=== PATIENT | female | born 1955 | race Caucasian/White ===

== ENCOUNTER 2018-12-31 16:07 | Emergency (ER) | payer SELFPAY ==
[~2018-12-31] VITALS: Ht 160 cm; Wt 79.3 kg
--- NOTE | 2018-12-31 16:31 | ED Neurological Problem ---
General Chief Complaint: Neurological Problems Stated Complaint: VOMITING,CONFUSION Nursing Triage Note: Pt brought to ED by sister. Pt is confused and not oriented. Sister reports pt began having trouble seeing last night and became confused. Sister reports pt vomited in car on the way to ED. Pt is waddling when walking and sister reports this is not normal for pt. Pt unable to provide history. Nursing Sepsis Screen: No Definite Risk Source: patient Exam Limitations: no limitations History of Present Illness Date Seen by Provider: Dec 31, 2018 Time Seen by Provider: 16:28 Initial Comments Brought to ER by private vehicle from home accompanied by her sister. She lives in [facility] her sister lives in [facility]. She does not know her primary care provider, past medical history or medications. Sr. states that the patient called her yesterday and reported she wasn't feeling well, upon sisters arrival she seemed to be confused, this started last night. She's also had some vomiting and threw up once in the car on the way here. She is on a blood thinner possibly but sister isn't quite sure. She also reports vision troubles. Timing/Duration: 24 hours Severity: moderate Associated Symptoms: confusion, nausea/vomiting, vision changes Allergies and Home Medications Allergies Coded Allergies: No Known Drug Allergies (Unverified , 12/31/18) Patient Home Medication List Home Medication List Reviewed: Yes Review of Systems Review of Systems Constitutional: see HPI, other (difficult to obtain from sister and patient) Eyes: No Symptoms Reported Ears, Nose, Mouth, Throat: no symptoms reported Respiratory: no symptoms reported Cardiovascular: no symptoms reported Gastrointestinal: nausea, vomiting Genitourinary: no symptoms reported Musculoskeletal: no symptoms reported Skin: no symptoms reported Psychiatric/Neurological: See HPI, Cognitive Dysfunction; Denies Headache Past Vscxjal-Hcxhmt-Mcpmyk Hx Patient Social History Recent Foreign Travel: No Contact w/Someone Who Travel: No Recent Infectious Disease Expo: No Physical Exam Vital Signs Vital Signs - First Documented 12/31/18 16:13 Temp 36.3 Pulse 111 Resp 14 B/P (MAP) 99/66 (77) Pulse Ox 98 O2 Delivery Room Air Capillary Refill : Less Than 3 Seconds Height, Weight, BMI Height: '" Weight: lbs. oz. kg; 30.00 BMI Method: General Appearance: WD/WN, no apparent distress, other (patient is alert, disoriented to place time and situation. She is ambulatory with standby assistance from her sister with a shuffling gait which is abnormal for the patient. She states that she feels okay. However she doesn't know where she is, the month or the day.) HEENT: PERRL/EOMI, normal ENT inspection Neck: non-tender, full range of motion Respiratory: normal breath sounds, no respiratory distress, no accessory muscle use Cardiovascular: no murmur, tachycardia Gastrointestinal: normal bowel sounds, non tender, soft Neurologic/Psychiatric: alert Crainal Nerves: normal hearing, normal speech, PERRL, other (facial movements are symmetric) Coordination/Gait: abnormal gait, ABN nose to finger (R), ABN nose to finger (L) (general ataxia) Motor/Sensory: no motor deficit, other (no drift of either upper extremity, moves all extremities with equal strength) Skin: normal color, warm/dry Progress/Results/Core Measures Results/Orders Lab Results Laboratory Tests Test 12/31/18 16:15 12/31/18 16:24 12/31/18 16:42 Range/Units Urine Color DARK YELLOW Urine Clarity CLEAR Urine pH 6.0 5-9 Urine Specific [place] >=1.030 1.016-1.022 Urine Protein 3+ H NEGATIVE Urine Glucose (UA) NEGATIVE NEGATIVE Urine Ketones 1+ H NEGATIVE Urine Nitrite NEGATIVE NEGATIVE Urine Bilirubin 1+ H NEGATIVE Urine Urobilinogen 0.2 < = 1.0 MG/DL Urine Leukocyte Esterase NEGATIVE NEGATIVE Urine RBC (Auto) 2+ H NEGATIVE Urine RBC 10-25 H /HPF Urine WBC NONE /HPF Urine Squamous Epithelial Cells 2-5 /HPF Urine Crystals NONE /LPF Urine Bacteria TRACE /HPF Urine Casts NONE /LPF Urine Mucus MODERATE H /LPF Urine Culture Indicated NO Urine Opiates Screen NEGATIVE NEGATIVE Urine Oxycodone Screen NEGATIVE NEGATIVE Urine Methadone Screen NEGATIVE NEGATIVE Urine Propoxyphene Screen NEGATIVE NEGATIVE Urine Barbiturates Screen NEGATIVE NEGATIVE Ur Tricyclic Antidepressants Screen NEGATIVE NEGATIVE Urine Phencyclidine Screen NEGATIVE NEGATIVE Urine Amphetamines Screen NEGATIVE NEGATIVE Urine Methamphetamines Screen NEGATIVE NEGATIVE Urine Benzodiazepines Screen NEGATIVE NEGATIVE Urine Cocaine Screen NEGATIVE NEGATIVE Urine Cannabinoids Screen NEGATIVE NEGATIVE White Blood Count 13.9 H 4.3-11.0 10^3/uL Red Blood Count 5.84 4.35-5.85 10^6/uL Hemoglobin 15.8 11.5-16.0 G/DL Hematocrit 47 35-52 % Mean Corpuscular Volume 81 80-99 FL Mean Corpuscular Hemoglobin 27 25-34 PG Mean Corpuscular Hemoglobin Concent 33 32-36 G/DL Red Cell Distribution Width 15.8 H 10.0-14.5 % Platelet Count 288 130-400 10^3/uL Mean Platelet Volume 9.4 7.4-10.4 FL Neutrophils (%) (Auto) 79 H 42-75 % Lymphocytes (%) (Auto) 14 12-44 % Monocytes (%) (Auto) 6 0-12 % Eosinophils (%) (Auto) 0 0-10 % Basophils (%) (Auto) 0 0-10 % Neutrophils # (Auto) 10.9 H 1.8-7.8 X 10^3 Lymphocytes # (Auto) 2.0 1.0-4.0 X 10^3 Monocytes # (Auto) 0.9 0.0-1.0 X 10^3 Eosinophils # (Auto) 0.1 0.0-0.3 10^3/uL Basophils # (Auto) 0.0 0.0-0.1 10^3/uL Prothrombin Time 13.7 12.2-14.7 SEC INR Comment 1.0 0.8-1.4 Sodium Level 140 135-145 MMOL/L Potassium Level 4.1 3.6-5.0 MMOL/L Chloride Level 102 98-107 MMOL/L Carbon Dioxide Level 23 21-32 MMOL/L Anion Gap 15 H 5-14 MMOL/L Blood Urea Nitrogen 23 H 7-18 MG/DL Creatinine 1.34 H 0.60-1.30 MG/DL Estimat Glomerular Filtration Rate 40 BUN/Creatinine Ratio 17 Glucose Level 135 H 70-105 MG/DL Calcium Level 10.2 H 8.5-10.1 MG/DL Corrected Calcium 8.5-10.1 MG/DL Total Bilirubin 1.1 H 0.1-1.0 MG/DL Aspartate Amino Transf (AST/SGOT) 19 5-34 U/L Alanine Aminotransferase (ALT/SGPT) 20 0-55 U/L Alkaline Phosphatase 94 40-136 U/L Total Protein 8.5 H 6.4-8.2 GM/DL Albumin 4.8 H 3.2-4.5 GM/DL Thyroid Stimulating Hormone (TSH) 0.29 L 0.35-4.94 UIU/ML Serum Alcohol < 10 <10 MG/DL Glucometer 130 H 70-110 MG/DL My Orders Orders - GUY REDDY APRN Ct Head Wo-R/O Stroke (12/31/18 16:26) Cbc With Automated Diff (12/31/18 16:26) Comprehensive Metabolic Panel (12/31/18 16:26) Protime With Inr (12/31/18 16:26) Thyroid Stimulating Hormone (12/31/18 16:26) Ua Culture If Indicated (12/31/18 16:26) Drug Screen Stat (Urine) (12/31/18 16:26) Alcohol (12/31/18 16:26) Ns Iv 1000 Ml (Sodium Chloride 0.9%) (12/31/18 16:45) Ondansetron Injection (Zofran Injectio (12/31/18 16:45) Ekg Tracing (12/31/18 16:32) Accucheck Stat ONCE (12/31/18 16:35) Ns (Ivpb) (Sodium C... W/Diltiazem Iv Fo (12/31/18 17:30) Ns (Ivpb) (Sodium C... W/Nicardipine Iv (12/31/18 17:45) Labetalol Injection (Normodyne Injection (12/31/18 17:45) Labetalol Injection (Normodyne Injection (12/31/18 18:15) Medications Given in ED Current Medications Medications Dose Ordered Sig/Tamara Route Start Time Stop Time Status Last Admin Dose Admin Labetalol HCl 10 mg ONCE ONCE IV 12/31/18 17:45 12/31/18 17:46 DC 12/31/18 17:40 10 MG Labetalol HCl 10 mg ONCE ONCE IV 12/31/18 18:15 12/31/18 18:16 DC 12/31/18 18:11 10 MG Ondansetron HCl 4 mg ONCE ONCE IVP 12/31/18 16:45 12/31/18 16:46 DC 12/31/18 16:37 4 MG Vital Signs/I&O 12/31/18 16:13 Temp 36.3 Pulse 111 Resp 14 B/P (MAP) 99/66 (77) Pulse Ox 98 O2 Delivery Room Air Blood Pressure Mean: 77 POS Diagnostic Imaging Diagonstic Imaging: CT Comments NAME: SHAUN BALTAZAR [facility] REC#: [id number] PT STATUS: REG ER : 1955 PHYSICIAN: GUY REDDY APRN ADMIT DATE: 12/31/18/ER Draft POSDate of Exam:12/31/18 CT HEAD WO-R/O STROKE PROCEDURE: CT head wo r/o stroke. TECHNIQUE: Multiple contiguous axial images were obtained through the brain without the use of intravenous contrast. Auto Exposure Controls were utilized during the CT exam to meet ALARA standards for radiation dose reduction. INDICATION: Confusion x2 days. FINDINGS: There is a 3.5 x 3.0 cm parenchymal hemorrhage in the left posterior parietal lobe near the watershed vascular territory between the middle and posterior cerebral arteries. There is old ischemic change in the opposing right posterior parietal lobe. There are areas of decreased density in the periventricular white matter consistent with chronic small vessel ischemic change. The hemorrhage is causing some mass effect on the occipital horn of the left lateral ventricle. IMPRESSION: 3.5 x 3.0 cm parenchymal hemorrhage left posterior parietal lobe. Results were called to Guy in the Emergency Room at 1710 hours. Dictated on workstation # [id number] Dict: 12/31/18 1705 Trans: 12/31/18 1714 [facility] [id number] Interpreted by: FARHEEN HOSKINS MD Electronically signed by: Departure Communication (Admissions) Her pharmacy is [facility] in [facility]. Primary care provider is Dr. Josh Bell. Pharmacy states that she is on carvedilol 3.125, lisinopril 40 and diltiazem 120. She has not filled these medications since October however. These are her only 3 medications according to pharmacy. 1749-Dr. Carreon transfer physician and Dr. Bui neurosurgeon at [facility] on the [address] has accepted the patient in transfer. They would like systolic pressure less than 140. Currently she is at 217/142. Has been as high as 240 systolic. Nicardipine drip ordered, labetalol 10 mg IV given. I offered transfer to [facility] in [place], however they are from the [facility] and she has been a patient at [facility] on the [address] before, sister would like the patient to go back that direction and that is certainly appropriate. 1849-O care is here to transport patient, she remains alert but confused. Blood pressure down to 163/96, she's received 20 mg of labetalol, on a Cardene drip at 15 mg an hour. Impression Primary Impression: Intraparenchymal hemorrhage of brain Disposition: 02 XFER SHT-TRM HOSP Condition: Critical Transfer Transfer Reason: Exceeds level of care Time Spoke to Accepting Phy: 17:51 Transfer Time: 17:51 Method of Transfer: GUY Scott APRN Dec 31, 2018 16:31 POS
[2018-12-31 16:34] LABS: CLARITY,URINE CLEAR; COLOR,URINE DARK YELLOW; GLUCOSE, URINE (UA) NEGATIVE (NEGATIVE); KETONES,URINE 1+ (NEGATIVE); LEUKOCYTE ESTERASE ,URINE NEGATIVE (NEGATIVE); NITRITE,URINE NEGATIVE (NEGATIVE); PROTEIN,URINE 3+ (NEGATIVE)
[2018-12-31 16:35] LABS: BASOPHILS % (AUTO) 0 % (0-10); EOSINOPHILS # (AUTO) 0.1 10^3/uL (0.0-0.3); EOSINOPHILS % (AUTO) 0 % (0-10); HEMATOCRIT 47 % (35-52); HEMOGLOBIN 15.8 G/DL (11.5-16.0); LYMPHOCYTES % (AUTO) 14 % (12-44); MEAN CORPUSCULAR HEMOGLOBIN 27 PG (25-34); MEAN CORPUSCULAR HGB CONC 33 G/DL (32-36); MEAN CORPUSCULAR VOLUME 81 FL (80-99); MEAN PLATELET VOLUME 9.4 FL (7.4-10.4); MONOCYTES # (AUTO) 0.9 X 10^3 (0.0-1.0); MONOCYTES % (AUTO) 6 % (0-12); NEUTROPHILS # (AUTO) 10.9 X 10^3 (1.8-7.8); NEUTROPHILS % (AUTO) 79 % (42-75); PLATELET COUNT 288 10^3/uL (130-400); RED CELL DISTRIBUTION WIDTH 15.8 % (10.0-14.5); WHITE BLOOD COUNT 13.9 10^3/uL (4.3-11.0)
[2018-12-31 16:45] LABS: PROTHROMBIN TIME PATIENT 13.7 SEC (12.2-14.7)
[2018-12-31] MEDS ORDERED: ONDANSETRON 4 MG/2 ML (SDV) Z0FRAN IVP ONE (16:45)
[2018-12-31] MEDS ORDERED: NS IV 1000 ML 1,000 ML IV SCH (16:45)
[2018-12-31 16:52] LABS: BILIRUBIN,URINE 1+ (NEGATIVE)
[2018-12-31 16:53] LABS: BACTERIA,URINE TRACE /HPF
[2018-12-31 16:54] LABS: AMPHETAMINE SCREEN, URINE NEGATIVE (NEGATIVE); BARBITURATE SCREEN URINE NEGATIVE (NEGATIVE); BENZODIAZEPINES SCREEN URINE NEGATIVE (NEGATIVE); CANNABINOID SCREEN, URINE NEGATIVE (NEGATIVE); COCAINE SCREEN URINE NEGATIVE (NEGATIVE); METHADONE STAT NEGATIVE (NEGATIVE); METHAMPHETAMINE SCREEN URINE S NEGATIVE (NEGATIVE); OPIATE SCREEN URINE NEGATIVE (NEGATIVE); OXYCODONE STAT NEGATIVE (NEGATIVE); PROPOXYPHENE STAT NEGATIVE (NEGATIVE); TRICYCLIC ANTIDEPRESSANTS SCRE NEGATIVE (NEGATIVE)
[2018-12-31 17:00] LABS: ALANINE AMINOTRANSFERASE 20 U/L (0-55); ALBUMIN 4.8 GM/DL (3.2-4.5); ALKALINE PHOSPHATASE 94 U/L (40-136); BILIRUBIN,TOTAL 1.1 MG/DL (0.1-1.0); BUN/CREATININE RATIO 17; CALCIUM 10.2 MG/DL (8.5-10.1); CARBON DIOXIDE 23 MMOL/L (21-32); CHLORIDE 102 MMOL/L (98-107); CREATININE SERUM 1.34 MG/DL (0.60-1.30); GFR ESTIMATED 40; GLUCOSE 135 MG/DL (70-105); POTASSIUM 4.1 MMOL/L (3.6-5.0); SODIUM 140 MMOL/L (135-145); TOTAL PROTEIN 8.5 GM/DL (6.4-8.2)
--- NOTE | 2018-12-31 17:14 | Diagnostic Imaging Report ---
PROCEDURE: CT head wo r/o stroke. TECHNIQUE: Multiple contiguous axial images were obtained through the brain without the use of intravenous contrast. Auto Exposure Controls were utilized during the CT exam to meet ALARA standards for radiation dose reduction. INDICATION: Confusion x2 days. FINDINGS: There is a 3.5 x 3.0 cm parenchymal hemorrhage in the left posterior parietal lobe near the watershed vascular territory between the middle and posterior cerebral arteries. There is old ischemic change in the opposing right posterior parietal lobe. There are areas of decreased density in the periventricular white matter consistent with chronic small vessel ischemic change. The hemorrhage is causing some mass effect on the occipital horn of the left lateral ventricle. IMPRESSION: 3.5 x 3.0 cm parenchymal hemorrhage left posterior parietal lobe. Results were called to Matty in the Emergency Room at 1710 hours. Dictated by: Dictated on workstation # [id number]
[2018-12-31] MEDS ORDERED: DILTIAZEM IV FOR DRIP 125 MG in NS (IVPB) 100 ML IV SCH (17:30)
[2018-12-31] MEDS ORDERED: LABETALOL HCL 20 MG/4 ML VIAL IV ONE ×2 (17:45→18:15)
[2018-12-31] MEDS ORDERED: niCARdipine IV 50 MG in NS (IVPB) 230 ML IV SCH (17:45)
--- NOTE | 2018-12-31 18:06 | NUR ---
Attempted to have pt sign consent form. Pt cannot remember why pt is being transferred. Matty Olvera explained reason for transfer to pt again. Consent form signed by this nurse and Matty Olvera.
[2018-12-31 18:50] VITALS: BP 163/96
== END 2018-12-31 19:01 | disposition short-term general hospital (02) ==
LOC: ER 16:10
DX: I61.8 Other nontraumatic intracerebral hemorrhage (principal)
CPT/HCPCS: 36415; 51702; 70450; 80053; 80306; 80320; 81000; 82962; 84443; 85025; 85610; 93005

== ENCOUNTER 2019-06-02 16:02 | Inpatient (IN) | payer MEDICAID ==
[~2019-06-02] VITALS: Ht 162.5 cm; Wt 84.1 kg
--- OUTSIDE RECORDS SUMMARY | 2019-06-02 16:08 | XMS REPORT | Continuity of Care Document ---
Author Organization Unknown Address Unknown Phone Unavailable Allergies Active Description Code Type Severity Reaction Onset Reported/Identified Relationship to Patient Clinical Status Yes No Known Drug Allergies [id number] Drug Allergy Unknown N/A 12/31/2018 Medications There is no data. Problems Date Dx Coded Attending Type Code Diagnosis Diagnosed By 12/31/2018 GUY REDDY APRN Ot I61 .8 OTHER NONTRAUMATIC INTRACEREBRAL HEMORRH 12/31/2018 GUY REDDY APRN Ot R11.10 VOMITING, UNSPECIFIED 01/02/2019 GUY REDDY APRN Ot I61 .8 OTHER NONTRAUMATIC INTRACEREBRAL HEMORRH 01/02/2019 GUY REDDY APRN Ot R11.10 VOMITING, UNSPECIFIED Procedures There is no data. Results Test Result Range Complete urinalysis with reflex to cultu re - 12/31/18 16:15 Urine color determination DARK YELLOW N RG Urine clarity determination CLEAR NR G Urine pH measurement by test strip 6.0 5-9 Specific gravity of urine by test strip >= 1.016-1.022 Urine protein assay by test strip, semi-quantitative 3+ NEGATIVE Urine glucose detection by automated test strip NE GATIVE NEGATIVE Erythrocytes detection in urine sediment by light micr oscopy 2+ NEGATIVE Urine ketones detection by automated test strip 1+ NEGATIVE Urine nitrite detection by test strip NEGATIVE NEGATIVE Urine total bilirubin detection by test strip 1+ NEGATIVE Urine urobilinogen measurement by automated test strip (mass/volume) 0.2 mg/dL < = 1.0 Urine leukocyte esterase detection by dipstick NEG ATIVE NEGATIVE Automated urine sediment erythrocyte cou nt by microscopy (number/high power field) [HPF] NRG Automated urine sediment leukocyte count by microscopy (number/high power field) NONE NRG Bacteria detection in urine sediment by light microsco py TRACE NRG Squamous epithelial cells detection in u rine sediment by light microscopy 2-5 NRG Crystals detection in urine sediment by light microsco py NONE NRG Casts detection in urine sediment by light microscopy NONE NRG Mucus detection in urine sediment by light microscopy MODERATE NRG Complete urinalysis with reflex to culture NO NRG Urine drug screening test - 12/31/18 16: 15 Urine phencyclidine detection by screening method NEGATIVE NEGATIVE Urine benzodiazepines detection by screening method NEGATIVE NEGATIVE Urine cocaine detection NEGATIVE NEGATI VE Urine amphetamines detection by screening method N EGATIVE NEGATIVE Urine methamphetamine detection by screening method NEGATIVE NEGATIVE Urine cannabinoids detection by screening method N EGATIVE NEGATIVE Urine opiates detection by screening method NEGATI VE NEGATIVE Urine barbiturates detection NEGATIVE N EGATIVE Screening urine tricyclic antidepressants detection NEGATIVE NEGATIVE Urine methadone detection by screening method NEGA TIVE NEGATIVE Urine oxycodone detection NEGATIVE NEGA TIVE Urine propoxyphene detection NEGATIVE N EGATIVE Complete blood count (CBC) with automate d white blood cell (WBC) differential - 12/31/18 16:24 Blood leukocytes automated count (number/volume) 13.9 10*3/uL 4.3-11.0 Blood erythrocytes automated count (number/volume) 5.84 10*6/uL 4.35-5.85 Venous blood hemoglobin measurement (mass/volume) 15.8 g/dL 11.5-16.0 Blood hematocrit (volume fraction) 47 % 35-52 Automated erythrocyte mean corpuscular volume 81 [ foz_us] 80-99 Automated erythrocyte mean corpuscular h emoglobin (mass per erythrocyte) 27 pg 25-34 Automated erythrocyte mean corpuscular h emoglobin concentration measurement (mass/volume) 33 g/dL 32-36 Automated erythrocyte distribution width ratio 15. 8 % 10.0- 14.5 Automated blood platelet count (count/volume) 288 10*3/uL 130-400 Automated blood platelet mean volume measurement 9.4 [foz_us] 7.4-10.4 Automated blood neutrophils/100 leukocytes 79 % 42-75 Automated blood lymphocytes/100 leukocytes 14 % 12-44 Blood monocytes/100 leukocytes 6 % 0-12 Automated blood eosinophils/100 leukocytes 0 % 0-10 Automated blood basophils/100 leukocytes 0 % 0-10 Blood neutrophils automated count (number/volume) 10.9 10*3 1.8-7.8 Blood lymphocytes automated count (number/volume) 2.0 10*3 1.0-4.0 Blood monocytes automated count (number/volume) 0. 9 10*3 0.0-1.0 Automated eosinophil count 0.1 10*3/uL 0 .0-0.3 Automated blood basophil count (count/volume) 0.0 10*3/uL 0.0-0.1 PT panel in platelet poor plasma by coag ulation assay - 12/31/18 16:24 Prothrombin time (PT) in platelet poor plasma by coagu lation assay 13.7 s 12.2-14.7 INR in platelet poor plasma or blood by coagulation as say 1.0 0.8-1.4 Comprehensive metabolic panel - 12/31/18 16:24 Serum or plasma sodium measurement (moles/volume) 140 mmol/L 135-145 Serum or plasma potassium measurement (moles/volume) 4.1 mmol/L 3.6-5.0 Serum or plasma chloride measurement (moles/volume) 102 mmol/L 98-107 Carbon dioxide 23 mmol/L 21-32 Serum or plasma anion gap determination (moles/volume) 15 mmol/L 5-14 Serum or plasma urea nitrogen measurement (mass/volume ) 23 mg/dL 7-18 Serum or plasma creatinine measurement (mass/volume) 1.34 mg/dL 0.60-1.30 Serum or plasma urea nitrogen/creatinine mass ratio 17 NRG Serum or plasma creatinine measurement w ith calculation of estimated glomerular filtration rate 40 NRG Serum or plasma glucose measurement (mass/volume) 135 mg/dL 70-105 Serum or plasma calcium measurement (mass/volume) 10.2 mg/dL 8.5-10.1 Serum or plasma total bilirubin measurement (mass/volu me) 1.1 mg/dL 0.1-1.0 Serum or plasma alkaline phosphatase heide surement (enzymatic activity/volume) 94 U/L 40-136 Serum or plasma aspartate aminotransfera se measurement (enzymatic activity/volume) 19 U/L 5-34 Serum or plasma alanine aminotransferase measurement (enzymatic activity/volume) 20 U/L 0-55 Serum or plasma protein measurement (mass/volume) 8.5 g/dL 6.4-8.2 Serum or plasma albumin measurement (mass/volume) 4.8 g/dL 3.2-4.5 THYROID STIMULATING HORMONE - 12/31/18 1 6:24 THYROID STIMULATING HORMONE 0.29 u[iU]/mL 0.35-4.94 Serum or plasma ethanol measurement (mas s/volume) - 12/31/18 16:24 Serum or plasma ethanol measurement (mass/volume) < mg/dL <10 Capillary blood glucose measurement by g lucometer (mass/volume) - 12/31/18 16:42 Capillary blood glucose measurement by glucometer (mas s/volume) 130 mg/dL 70-110 Encounters ACCT No. Visit Date/Time Discharge Status Pt. Type Provider Facility Loc./Unit Complaint [id number] 12/31/2018 16:10:00 019 19:01:00 DIS Emergency GUY REDDY APRN [facility] ER VOMITING,CONFUSION
--- NOTE | 2019-06-02 16:13 | NUR ---
PATIENT GIVEN POOR HX ON ADMIT.
--- NOTE | 2019-06-02 16:23 | ED General ---
General Chief Complaint: Dizziness/Syncope Stated Complaint: HIGH BP,WEAKNESS History of Present Illness Date Seen by Provider: Jun 02, 2019 Time Seen by Provider: 16:23 Initial Comments 63-year-old female presents with high blood pressure and generalized malaise. Patient was recently started on metoprolol for elevated blood pressure. She reports however she did not take it today. Patient has some general malaise and nausea but is very nonspecific in her complaints. She does not state why she did not take her blood pressure medication today patient denies any chest pain, shortness of breath, fevers chills cough or any other systemic complaints. (MINDY GALLEGOS DO) Allergies and Home Medications Allergies Coded Allergies: No Known Drug Allergies (Unverified , 12/31/18) Patient Home Medication List Home Medication List Reviewed: Yes (MINDY GALLEGOS DO) Review of Systems Review of Systems Constitutional: No chills, No fever; malaise Respiratory: No cough, No short of breath Cardiovascular: No chest pain, No palpitations Gastrointestinal: nausea Musculoskeletal: no symptoms reported Skin: no symptoms reported (MINDY GALLEGOS DO) Past Pbeadzo-Btghfe-Wbjzky Hx Past Med/Social Hx: Reviewed Nursing Past Med/Soc Hx (MINDY GALLEGOS DO) Patient Social History 2nd Hand Smoke Exposure: No Recent Foreign Travel: No Contact w/Someone Who Travel: No Recent Hopitalizations: No (MINDY GALLEGOS DO) Past Medical History Surgeries: Yes Hysterectomy Respiratory: No Cardiac: Yes Heart Attack, Hypertension Neurological: Yes Stroke (MINDY GALLEGOS DO) Physical Exam Vital Signs Vital Signs - First Documented 06/02/19 16:13 Temp 36.5 Pulse 84 Resp 18 B/P (MAP) 224/160 (181) Pulse Ox 97 O2 Delivery Room Air (MARNI JOY MD) Vital Signs Capillary Refill : (MINDY GALLEGOS DO) Height, Weight, BMI Height: '" Weight: lbs. oz. kg; 30.00 BMI Method: General Appearance: No Apparent Distress, Anxious Respiratory: Chest Non Tender, Lungs Clear, Normal Breath Sounds Cardiovascular: Regular Rate, Rhythm, No Edema Gastrointestinal: Non Tender, Soft Neurologic/Psychiatric: Alert, Oriented x3, No Motor/Sensory Deficits, glass vial filler II- XII Norm as Tested Skin: Normal Color, Warm/Dry (MINDY GALLEGOS DO) Progress/Results/Core Measures Suspected Sepsis SIRS Temperature: Pulse: Respiratory Rate: Laboratory Tests 06/02/19 17:04: White Blood Count 10.9 Blood Pressure / Mean: Laboratory Tests 06/02/19 17:04: Creatinine 1.48H, Platelet Count 217, Total Bilirubin 1.5H (GALLEGOS,MINDY L DO) Results/Orders Lab Results Laboratory Tests Test 06/02/19 17:04 06/02/19 22:00 06/03/19 02:14 Range/Units White Blood Count 10.9 15.0 H 4.3-11.0 10^3/uL Red Blood Count 5.70 6.19 H 4.35-5.85 10^6/uL Hemoglobin 15.5 16.9 H 11.5-16.0 G/DL Hematocrit 48 51 35-52 % Mean Corpuscular Volume 84 83 80-99 FL Mean Corpuscular Hemoglobin 27 27 25-34 PG Mean Corpuscular Hemoglobin Concent 32 33 32-36 G/DL Red Cell Distribution Width 15.3 H 15.8 H 10.0-14.5 % Platelet Count 217 193 130-400 10^3/uL Mean Platelet Volume 10.2 10.5 H 7.4-10.4 FL Prothrombin Time 13.6 12.2-14.7 SEC INR Comment 1.0 0.8-1.4 Activated Partial Thromboplast Time 28 24-35 SEC Sodium Level 141 142 135-145 MMOL/L Potassium Level 4.1 3.5 L 3.6-5.0 MMOL/L Chloride Level 105 106 98-107 MMOL/L Carbon Dioxide Level 22 20 L 21-32 MMOL/L Anion Gap 14 16 H 5-14 MMOL/L Blood Urea Nitrogen 30 H 29 H 7-18 MG/DL Creatinine 1.48 H 1.37 H 0.60-1.30 MG/DL Estimat Glomerular Filtration Rate 36 39 BUN/Creatinine Ratio 20 21 Glucose Level 108 H 141 H 70-105 MG/DL Calcium Level 9.7 9.7 8.5-10.1 MG/DL Corrected Calcium 9.5 9.4 8.5-10.1 MG/DL Magnesium Level 2.3 2.2 1.6-2.4 MG/DL Total Bilirubin 1.5 H 1.2 H 0.1-1.0 MG/DL Aspartate Amino Transf (AST/SGOT) 25 42 H 5-34 U/L Alanine Aminotransferase (ALT/SGPT) 30 30 0-55 U/L Alkaline Phosphatase 78 89 40-136 U/L Myoglobin 87.4 10.0-92.0 NG/ML Troponin I 0.054 H <0.028 NG/ML B-Type Natriuretic Peptide 596.4 H <100.0 PG/ML Total Protein 7.5 7.6 6.4-8.2 GM/DL Albumin 4.3 4.4 3.2-4.5 GM/DL TSH [place] Testing 0.88 0.35-4.94 UIU/ML Urine Color YELLOW Urine Clarity CLEAR Urine pH 6.5 5-9 Urine Specific [place] 1.025 H 1.016-1.022 Urine Protein 2+ H NEGATIVE Urine Glucose (UA) NEGATIVE NEGATIVE Urine Ketones 1+ H NEGATIVE Urine Nitrite POSITIVE H NEGATIVE Urine Bilirubin NEGATIVE NEGATIVE Urine Urobilinogen 0.2 < = 1.0 MG/DL Urine Leukocyte Esterase NEGATIVE NEGATIVE Urine RBC (Auto) 1+ H NEGATIVE Urine RBC 2-5 H /HPF Urine WBC 2-5 /HPF Urine Crystals PRESENT H /LPF Urine Amorphous Sediment FEW JENNY URATES H /LPF Urine Bacteria LARGE H /HPF Urine Casts NONE /LPF Urine Mucus NEGATIVE /LPF Urine Culture Indicated YES Neutrophils (%) (Auto) 89 H 42-75 % Lymphocytes (%) (Auto) 6 L 12-44 % Monocytes (%) (Auto) 5 0-12 % Eosinophils (%) (Auto) 0 0-10 % Basophils (%) (Auto) 0 0-10 % Neutrophils # (Auto) 13.4 H 1.8-7.8 X 10^3 Lymphocytes # (Auto) 0.9 L 1.0-4.0 X 10^3 Monocytes # (Auto) 0.7 0.0-1.0 X 10^3 Eosinophils # (Auto) 0.0 0.0-0.3 10^3/uL Basophils # (Auto) 0.0 0.0-0.1 10^3/uL Neutrophils % (Manual) 83 % Lymphocytes % (Manual) 5 % Monocytes % (Manual) 5 % Band Neutrophils 7 % Blood Morphology Comment NORMAL Phosphorus Level 3.9 2.3-4.7 MG/DL Triglycerides Level 76 <150 MG/DL Cholesterol Level 215 H < 200 MG/DL LDL Cholesterol Direct 168 H 1-129 MG/DL VLDL Cholesterol 15 5-40 MG/DL HDL Cholesterol 55 40-60 MG/DL (MARNI JOY MD) My Orders Orders - MARNI JOY MD Thyroid Analyzer (06/02/19 18:27) Ua Culture If Indicated (06/02/19 18:27) Fecal Occult Bedside (06/02/19 18:42) Labetalol Injection (Normodyne Injection (06/02/19 19:15) Ekg Tracing (06/02/19 19:02) Monitor-Rhythm Ecg Trace Only (06/02/19 19:02) Protime With Inr (06/02/19 19:10) Partial Thromboplastin Time (06/02/19 19:10) Labetalol Injection (Normodyne Injection (06/02/19 19:45) Stool Culture (06/02/19 19:38) Fecal Wbc (06/02/19 19:38) C Difficile Ag + Toxin A/B. (06/02/19 19:38) Isolation Central Supply Req (06/02/19 19:38) Magnesium (06/02/19 19:58) Myoglobin Serum (06/02/19 19:58) Troponin I (06/02/19 17:04) Ns (Ivpb) (Sodium C... W/Nicardipine Iv (06/02/19 22:00) Metoprolol Succinate (Xl) Tab (Toprol Xl (06/02/19 22:00) Nicardipine Iv For Drip (Cardene I.V. (O (06/02/19 21:56) Ns (Ivpb) (Sodium Chloride 0.9%) (06/02/19 21:56) Nicardipine Iv For Drip (Cardene I.V. (O (06/02/19 21:59) Urine Culture (06/02/19 22:00) (MARNI JOY MD) Medications Given in ED Current Medications Medications Dose Ordered Sig/Tamara Route Start Time Stop Time Status Last Admin Dose Admin Enalaprilat 2.5 mg ONCE ONCE IV 06/02/19 17:45 06/02/19 17:46 DC 06/02/19 18:04 2.5 MG Labetalol HCl 10 mg ONCE ONCE IV 06/02/19 19:15 06/02/19 19:16 DC 06/02/19 19:19 10 MG Labetalol HCl 20 mg ONCE ONCE IV 06/02/19 19:45 06/02/19 19:46 DC 06/02/19 20:15 20 MG (MARNI JOY MD) Vital Signs/I&O 06/02/19 06/02/19 06/02/19 06/03/19 16:13 23:52 23:55 00:01 Temp 36.5 36.6 37.1 Pulse 84 68 75 72 Resp 18 17 17 B/P (MAP) 224/160 (181) 184/119 (181) 170/130 (143) Pulse Ox 97 98 96 O2 Delivery Room Air Room Air Room Air 06/03/19 06/03/19 06/03/19 06/03/19 00:15 00:30 00:40 00:45 Pulse 80 70 71 Resp 12 26 17 B/P (MAP) 176/126 (143) 169/121 (137) 166/126 (139) Pulse Ox 96 97 96 96 O2 Delivery Room Air Room Air Room Air Room Air 06/03/19 06/03/19 01:00 01:00 Pulse 73 73 Resp 35 B/P (MAP) 172/103 (126) Pulse Ox 98 O2 Delivery Room Air (MARNI JOY MD) Vital Signs/I&O Capillary Refill : (MINDY GALLEGOS DO) Progress Note : Time: 18:11 Progress Note Patient admitted around time of discharge that she hasn't taken her metoprolol for at least a couple days. I discussed with her the need to start taking it as prescribed. She was given metoprolol and enalapril in the ER. Patient is not having any signs of an acute hypertensive urgency or emergency. Patient to be discharged home in stable condition. (MINDY GALLEGOS DO) Progress Note #1: Time: 18:45 Progress Note I assumed care of this patient from Dr. Gallegos shift change. I received a verbal bedside checkout and reviewed labs and history Dr. Gallegos. Unfortunately, patient has not responded positively to the metoprolol and enalaprilat IV dose. Her systolic BP is still well over 200. She is also having liquid stools with suspicion of hematochezia. We will Hemoccult her stool. I will reassess her blood pressure and her anxiety level and then treat accordingly. Discharge has been postponed at this point until we can assess her blood pressure and liquid stools better. Progress Note #2: Time: 22:07 Progress Note EKG demonstrated atrial fibrillation with ST depression. Troponin was slightly elevated. Patient denies any chest pain at any time. She continues to have episodes of diarrhea with a positive Hemoccult. Case was discussed with Dr. Reed and with Dr. Field. Dr. Field recommends a Cardene drip to control blood pressure with target systolic blood pressure 160. He additionally recommended Toprol-XL 100 mg now. Her anticoagulation will be held. Case was discussed also with the eICU doctor, Dr. Forbes. (MARNI JOY MD) ECG Initial ECG Impression Date: Jun 02, 2019 Initial ECG Impression Time: 19:47 Initial ECG Rate: 78 Initial ECG Rhythm: A Fib/Flutter Comment Atrial fibrillation with ST depression. No ST elevation. (MARNI JOY MD) Diagnostic Imaging Comments NAME: SHAUN BALTAZAR [facility] REC#: [id number] PT STATUS: REG ER : 1955 PHYSICIAN: MINDY GALLEGOS DO ADMIT DATE: 06/02/19/ER Draft Date of Exam:06/02/19 CHEST 1 VIEW, AP/PA ONLY CLINICAL INDICATION: Patient with weakness, dizziness. Has not taken blood pressure medicines today. Patient did have some nausea. No fever or cough. EXAM: Portable chest x-ray upright view. COMPARISON: None. FINDINGS: There is a eurmk-up-fkuzient sized left pleural effusion with left basilar consolidation. There is mild inferior right perihilar atelectasis versus infiltrate. The remaining lungs are clear. There is no pneumothorax. There is cardiomegaly. Pulmonary vasculature is within normal limits. There are hypertrophic spurs involving the thoracic spine. IMPRESSION: 1: There is a nnyms-gm-cqlkwdyw sized left pleural effusion and left lung base consolidation. Atelectasis and/or infiltrate in the left lung base may be present. 2: There is mild atelectasis versus infiltrate involving the inferior right perihilar region. 3: Cardiomegaly with no significant pulmonary vascular congestion (MINDY GALLEGOS DO) Diagonstic Imaging: Xray Plain Films/CT/US/NM/MRI: chest Reviewed: Reviewed by Me (MARNI JOY MD) Departure Communication (Admissions) Time/Spoke to Admitting Phy: 21:55 Dr. Reed Time/Spoke to Consulting Phy: 21:50 Dr. Field (MARNI JOY MD) Impression Primary Impression: Malignant hypertension Additional Impressions: GI bleed Qualified Codes: K92.2 - Gastrointestinal hemorrhage, unspecified Elevated troponin Diarrhea Qualified Codes: R19.7 - Diarrhea, unspecified Atrial fibrillation Qualified Codes: I48.91 - Unspecified atrial fibrillation Disposition: ADMITTED INPATIENT Condition: Stable Admissions Decision to Admit Reason: Admit from ER (General) Decision to Admit/Date: Jun 02, 2019 Time/Decision to Admit Time: 20:00 (MARNI JOY MD) Departure-Patient Inst. Referrals: HEBER REED DO (PCP/Family) Primary Care Physician Patient Instructions: Medicines for High Blood Pressure, Malignant Hypertension (DC) Add. Discharge Instructions: Please take your blood pressure medication as prescribed and do not skip doses Follow-up with your primary care provider in 1-2 days for continuation of care and recheck of today symptoms Emergency department focuses on treating and ruling out life-threatening diseases. Whenever possible, a diagnosis is given. However, most patients are given an impression based on their history, physical exam, and workup during your brief time in the ER. Information about probable diagnosis and other educational material has been provided. Please take the time to read and understand this information. It is very important that you follow up with a physician as discussed during the visit today. Failure to adhere to your follow-up instructions may lead to severe disability, injury, or so please make sure to keep your appointments or obtain one as requested. Please keep in mind the emergency department is not designed to your primary care or "family doctor" and nonurgent issues are best evaluated by an outpatient physician All discharge instructions reviewed with patient and/or family. Voiced understanding. MINDY GALLEGOS DO Jun 02, 2019 16:23 MARNI JOY MD Jun 02, 2019 18:49
[2019-06-02] MEDS ORDERED: meTOproloL SUCCINATE 50 MG (TOPROL XL) TAB PO SCH ×2 (17:00→22:00)
[2019-06-02 17:11] LABS: HEMOGLOBIN 15.5 G/DL (11.5-16.0); MEAN PLATELET VOLUME 10.2 FL (7.4-10.4); RED CELL DISTRIBUTION WIDTH 15.3 % (10.0-14.5); WHITE BLOOD COUNT 10.9 10^3/uL (4.3-11.0)
--- NOTE | 2019-06-02 17:31 | Diagnostic Imaging Report ---
CLINICAL INDICATION: Patient with weakness, dizziness. Has not taken blood pressure medicines today. Patient did have some nausea. No fever or cough. EXAM: Portable chest x-ray upright view. COMPARISON: None. FINDINGS: There is a rkjka-aj-znaxlmwy sized left pleural effusion with left basilar consolidation. There is mild inferior right perihilar atelectasis versus infiltrate. The remaining lungs are clear. There is no pneumothorax. There is cardiomegaly. Pulmonary vasculature is within normal limits. There are hypertrophic spurs involving the thoracic spine. IMPRESSION: 1: There is a xeeod-wc-zjeyihlw sized left pleural effusion and left lung base consolidation. Atelectasis and/or infiltrate in the left lung base may be present. 2: There is mild atelectasis versus infiltrate involving the inferior right perihilar region. 3: Cardiomegaly with no significant pulmonary vascular congestion. Dictated by: Dictated on workstation # [id number]
[2019-06-02] MEDS ORDERED: ENALAPRILAT 1.25 MG/1 ML (VASOTEC) 1 ML VIAL IV ONE (17:45)
[2019-06-02 17:53] LABS: ALBUMIN 4.3 GM/DL (3.2-4.5)
[2019-06-02 17:54] LABS: POTASSIUM 4.1 MMOL/L (3.6-5.0)
[2019-06-02 17:55] LABS: CALCIUM 9.7 MG/DL (8.5-10.1)
[2019-06-02 17:56] LABS: TOTAL PROTEIN 7.5 GM/DL (6.4-8.2)
[2019-06-02 17:58] LABS: BILIRUBIN,TOTAL 1.5 MG/DL (0.1-1.0)
[2019-06-02 18:00] LABS: CREATININE SERUM 1.48 MG/DL (0.60-1.30)
--- NOTE | 2019-06-02 18:28 | NUR ---
Ender yoo in [facility] - 06/02/19 at 1830 by PMCCLURE TO OR PER CART.
--- NOTE | 2019-06-02 19:06 | NUR ---
REPORT TO MANISH
[2019-06-02] MEDS ORDERED: LABETALOL HCL 20 MG/4 ML VIAL IV ONE ×2 (19:15→19:45)
[2019-06-02 19:23] LABS: PROTHROMBIN TIME PATIENT 13.6 SEC (12.2-14.7)
--- NOTE | 2019-06-02 19:40 | NUR ---
Recieved report from CAROLINA Viramontes to assume care of pt at this time.
[2019-06-02 20:36] LABS: MAGNESIUM 2.3 MG/DL (1.6-2.4)
[2019-06-02] MEDS ORDERED: NS (IVPB) 250 ML ONE (21:56)
[2019-06-02] MEDS ORDERED: niCARdipine IV FOR DRIP 50 MG KIT ONE ×2 (21:56→21:59)
[2019-06-02] MEDS ORDERED: niCARdipine IV 50 MG in NS (IVPB) 230 ML IV SCH (22:00)
[2019-06-02 22:11] LABS: BILIRUBIN,URINE NEGATIVE (NEGATIVE); CLARITY,URINE CLEAR; COLOR,URINE YELLOW; GLUCOSE, URINE (UA) NEGATIVE (NEGATIVE); KETONES,URINE 1+ (NEGATIVE); LEUKOCYTE ESTERASE ,URINE NEGATIVE (NEGATIVE); NITRITE,URINE POSITIVE (NEGATIVE); PH,URINE 6.5 (5-9); PROTEIN,URINE 2+ (NEGATIVE)
[2019-06-02 22:26] LABS: AMORPHOUS SEDIMENT,UR FEW AMOR URATES /LPF; BACTERIA,URINE LARGE /HPF
--- OUTSIDE RECORDS SUMMARY | 2019-06-02 22:56 | XMS REPORT | Continuity of Care Document ---
Author Organization Unknown Address Unknown Phone Unavailable Allergies Active Description Code Type Severity Reaction Onset Reported/Identified Relationship to Patient Clinical Status Yes No Known Drug Allergies [id number] Drug Allergy Unknown N/A 12/31/2018 Medications There [...] by glucometer (mas s/volume) 130 mg/dL 70-110 Automated blood complete blood count (he mogram) panel - 06/02/19 17:04 Blood leukocytes automated count (number/volume) 10.9 10*3/uL 4.3-11.0 Blood erythrocytes automated count (number/volume) 5.70 10*6/uL 4.35-5.85 Venous blood hemoglobin measurement (mass/volume) 15.5 g/dL 11.5-16.0 Blood hematocrit (volume fraction) 48 % 35-52 Automated erythrocyte mean corpuscular volume 84 [ foz_us] 80-99 Automated erythrocyte mean corpuscular h emoglobin (mass per erythrocyte) 27 pg 25-34 Automated erythrocyte mean corpuscular h emoglobin concentration measurement (mass/volume) 32 g/dL 32-36 Automated erythrocyte distribution width ratio 15. 3 % 10.0- 14.5 Automated blood platelet count (count/volume) 217 10*3/uL 130-400 Automated blood platelet mean volume measurement 10.2 [foz_us] 7.4-10.4 Comprehensive metabolic panel - 06/02/19 17:04 Serum or plasma sodium measurement (moles/volume) 141 mmol/L 135-145 Serum or plasma potassium measurement (moles/volume) 4.1 mmol/L 3.6-5.0 Serum or plasma chloride measurement (moles/volume) 105 mmol/L 98-107 Carbon dioxide 22 mmol/L 21-32 Serum or plasma anion gap determination (moles/volume) 14 mmol/L 5-14 Serum or plasma urea nitrogen measurement (mass/volume ) 30 mg/dL 7-18 Serum or plasma creatinine measurement (mass/volume) 1.48 mg/dL 0.60-1.30 Serum or plasma urea nitrogen/creatinine mass ratio 20 NRG Serum or plasma creatinine measurement w ith calculation of estimated glomerular filtration rate 36 NRG Serum or plasma glucose measurement (mass/volume) 108 mg/dL 70-105 Serum or plasma calcium measurement (mass/volume) 9.7 mg/dL 8.5-10.1 Serum or plasma total bilirubin measurement (mass/volu me) 1.5 mg/dL 0.1-1.0 Serum or plasma alkaline phosphatase heide surement (enzymatic activity/volume) 78 U/L 40-136 Serum or plasma aspartate aminotransfera se measurement (enzymatic activity/volume) 25 U/L 5-34 Serum or plasma alanine aminotransferase measurement (enzymatic activity/volume) 30 U/L 0-55 Serum or plasma protein measurement (mass/volume) 7.5 g/dL 6.4-8.2 Serum or plasma albumin measurement (mass/volume) 4.3 g/dL 3.2-4.5 CALCIUM CORRECTED 9.5 mg/dL 8.5-10.1 Serum or plasma lithium measurement (mol es/volume) - 06/02/19 17:04 BNP PT 596.4 pg/mL <100.0 Serum or plasma thyrotropin measurement by detection limit <=0.05 miu/l (units/volume) - 06/02/19 17:04 Serum or plasma thyrotropin measurement by detection limit <=0.05 miu/l (units/volume) 0.88 u[iU]/mL 0.35-4.94 PT panel in platelet poor plasma by coag ulation assay - 06/02/19 17:04 Prothrombin time (PT) in platelet poor plasma by coagu lation assay 13.6 s 12.2-14.7 INR in platelet poor plasma or blood by coagulation as say 1.0 0.8-1.4 Activated partial thromboplastin time (a PTT) in platelet poor plasma bycoagulation assay - 06/02/19 17:04 Activated partial thromboplastin time (a PTT) in platelet poor plasma bycoagulation assay 28 s 24-35 Magnesium - 06/02/19 17:04 Magnesium 2.3 mg/dL 1.6-2.4 Serum or plasma troponin i.cardiac measu rement (mass/volume) - 06/02/19 17:04 Serum or plasma troponin i.cardiac measurement (mass/v olume) 0.054 ng/mL <0.028 Myoglobin, serum - 06/02/19 17:04 Myoglobin, serum 87.4 ng/mL 10.0-92.0 Complete urinalysis with reflex to cultu re - 06/02/19 22:00 Urine color determination YELLOW NRG Urine clarity determination CLEAR NR G Urine pH measurement by test strip 6.5 5-9 Specific gravity of urine by test strip 1.025 1.016-1.022 Urine protein assay by test strip, semi-quantitative 2+ NEGATIVE Urine glucose detection by automated test strip NE GATIVE NEGATIVE Erythrocytes detection in urine sediment by light micr oscopy 1+ NEGATIVE Urine ketones detection by automated test strip 1+ NEGATIVE Urine nitrite detection by test strip POSITIVE NEGATIVE Urine total bilirubin detection by test strip NEGA TIVE NEGATIVE Urine urobilinogen measurement by automated test strip (mass/volume) 0.2 mg/dL < = 1.0 Urine leukocyte esterase detection by dipstick NEG ATIVE NEGATIVE Automated urine sediment erythrocyte cou nt by microscopy (number/high power field) [HPF] NRG Automated urine sediment leukocyte count by microscopy (number/high power field) [HPF] NRG Bacteria detection in urine sediment by light microsco py LARGE NRG Crystals detection in urine sediment by light microsco py PRESENT NRG Casts detection in urine sediment by light microscopy NONE NRG Mucus detection in urine sediment by light microscopy NEGATIVE NRG Complete urinalysis with reflex to culture YES NRG Amorphous sediment detection in urine sediment by ligh t microscopy FEW JENNY URATES NRG Encounters ACCT No. Visit Date/Time Discharge Status Pt. Type Provider Facility Loc./Unit Complaint [id number] 12/31/2018 16:10:00 019 19:01:00 DIS Emergency GUY REDDY APRN [facility] ER VOMITING,CONFUSION [id number] 06/02/2019 17:25:00 Document Registration
--- NOTE | 2019-06-02 23:41 | NUR ---
Increased cardene drip to 7.5mg/hr d/t BP 192/169.
[2019-06-02 23:55] VITALS: BP 170/130
[2019-06-02] MEDS ORDERED: LACTATED RINGERS 1,000 ML IV ONE (23:56)
[2019-06-03] VITALS (28 sets, daily range): BP systolic 120–176; BP diastolic 77–126
[2019-06-03] MEDS ORDERED: LACTATED RINGERS 1,000 ML IV SCH (00:15)
[2019-06-03] MEDS: niCARdipine 50 MG/NS 250 ML IV DRIP IV SCH ×4 (00:46→06:13)
--- NOTE | 2019-06-03 00:50 | NUR ---
SHAUN BALTAZAR admitted to room CU3-1, with an admitting diagnosis of Hypertension, on 06/02/19 from [facility] ED via cart, accompanied by staff.SHAUN BALTAZAR introduced to surroundings, call light, bed controls, phone, TV, temperature control, lights, meal times, smoking policy, visitor policy, side rail policy, bathrooms and showers. Patient Rights given to patient in the handbook. SHAUN BALTAZAR verbalizes understanding that [facility] is not responsible for the loss or damage to any personal effects or valuables that are kept in the patients possession during their hospitalization. The following Patient Care Plans were discussed with the patient: Discharge Planning, activity,pain management, and diagnosis. SHAUN BALTAZAR verbalizes understanding of Interdisciplinary Patient Education. Patient and/or family were informed about the Rapid Response Team and its purpose.
--- NOTE | 2019-06-03 01:11 | NUR ---
Patient lives in [facility], Patient is visiting sister and has been staying with her in [facility] for one week now. Patient ordered her BP medication but was unable to get it and missed one day but BP med came in today and she reports that she did take a dose on Saturday. Patient lives at home alone, does report having a CVA in 2019 that was a "blood clot" she stated that she received TPA and was in [facility] for stroke. Patient also reported a long rehab. She does not have any children, no and both parents and one sister . She reports a very close relationship with her living sister and they take turns staying at each others house. Her living sister has thyroid cancer. Patient sees Dr Bell in [place]. Patient is alert and oriented, does admit to some memory issues after her stroke. Occasionally slow to answer but appropriate in the end. Patient denies pain, denies headache. Very cooperative and friendly patient.
[2019-06-03 02:35] LABS: BASOPHILS % (AUTO) 0 % (0-10); EOSINOPHILS % (AUTO) 0 % (0-10); HEMATOCRIT 51 % (35-52); HEMOGLOBIN 16.9 G/DL (11.5-16.0); LYMPHOCYTES # (AUTO) 0.9 X 10^3 (1.0-4.0); LYMPHOCYTES % (AUTO) 6 % (12-44); MEAN CORPUSCULAR HEMOGLOBIN 27 PG (25-34); MEAN CORPUSCULAR HGB CONC 33 G/DL (32-36); MEAN CORPUSCULAR VOLUME 83 FL (80-99); MEAN PLATELET VOLUME 10.5 FL (7.4-10.4); MONOCYTES # (AUTO) 0.7 X 10^3 (0.0-1.0); MONOCYTES % (AUTO) 5 % (0-12); NEUTROPHILS # (AUTO) 13.4 X 10^3 (1.8-7.8); NEUTROPHILS % (AUTO) 89 % (42-75); PLATELET COUNT 193 10^3/uL (130-400); RED CELL DISTRIBUTION WIDTH 15.8 % (10.0-14.5)
[2019-06-03 02:49] LABS: POTASSIUM 3.5 MMOL/L (3.6-5.0)
[2019-06-03 02:50] LABS: ALBUMIN 4.4 GM/DL (3.2-4.5); CALCIUM 9.7 MG/DL (8.5-10.1)
[2019-06-03 02:52] LABS: TOTAL PROTEIN 7.6 GM/DL (6.4-8.2)
[2019-06-03 02:54] LABS: BILIRUBIN,TOTAL 1.2 MG/DL (0.1-1.0)
[2019-06-03 02:55] LABS: NEUTROPHILS % (MANUAL) 83 %; PHOSPHORUS 3.9 MG/DL (2.3-4.7)
[2019-06-03 02:56] LABS: BAND NEUTROPHILS 7 %; CREATININE SERUM 1.37 MG/DL (0.60-1.30); LYMPHOCYTES % (MANUAL) 5 %; MONOCYTES % (MANUAL) 5 %; RBC MORPH NORMAL
[2019-06-03 02:59] LABS: MAGNESIUM 2.2 MG/DL (1.6-2.4)
[2019-06-03] MEDS: KCL 20 MEQ TAB (K-DUR) PO SCH (03:52)
[2019-06-03] MEDS: POTASSIUM CL 10MEQ/50ML IVPB 50 ML IV SCH (03:53)
[2019-06-03] MEDS: MAGNESIUM 1 GM/100 ML IVPB 100 ML IV SCH (03:53)
[2019-06-03] MEDS ORDERED: KCL 20 MEQ TAB (K-DUR) PO ONE (04:00)
[2019-06-03] MEDS ORDERED: NS (IVPB) 250 ML ONE (06:02)
[2019-06-03] MEDS ORDERED: niCARdipine IV FOR DRIP 50 MG KIT ONE (06:02)
[2019-06-03] MEDS ORDERED: AZITHROMYCIN 250 MG TAB (ZITHROMAX) PO NR (07:04)
--- NOTE | 2019-06-03 07:09 | Diagnostic Imaging Report ---
EXAMINATION: Portable erect AP chest at 326h. INDICATION: Malignant hypertension The cardiomegaly and the left lower lobe atelectasis/infiltrate and fluid seen on the prior exam of 06/02/2019 are again evident and no different. There may also still be a small amount of atelectasis/infiltrate in the right lung base. The upper lungs remain generally clear. The mediastinum is not widened. The osseous structures are intact. IMPRESSION: Stable chest. There has been no significant change since the prior exam. Dictated by: Dictated on workstation # [id number]
--- NOTE | 2019-06-03 09:01 | Consultation-Cardiology ---
HPI-Cardiology Cardiology Consultation: Date of Consultation 06/03/19 Time Seen by a Provider: 08:40 Date of Admission 06-02-2019 Attending Physician Leah Reed DO Admitting Physician Valerie,Local Physician Consulting Physician Marta Field MD HPI: Chief Complaint: NSTEMI HTN Ms. Baltazar is a 63 year old female who lives in [place], [place], but has been staying with her sister in [place], [place] for approx the last week. She has been admitted to ICU 6 from the ED with c/o near syncope and uncontrolled HTN. 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 She reports she takes Eliquis, but did miss one day of her medication d/t the pharmacy not being able to fill it (Saturday's dose per her report). She did take her Eliquis Saturday and Saturday. She states yesterday she was sitting down she developed a sudden onset of profound dizziness with associated nausea and diaphoresis. She states the dizziness and diaphoresis lasted for several hours. She reports movement made it worse. She denies any c/o CP at the time. She reports having palpitations at the time as well. She is currently not reporting any further dizziness, diaphoresis or palpitations. She reports reports she has been having chills the last couple days, but no fever. She does report having n/v/d yesterday. She denies any SOB. She reports chronic, intermittent bilat LE swelling which is unchanged in the recent past. She reports she does not take ASA. Her PCP is Dr. Bell in [place], [place]. Review of Systems-Cardiology Review of Systems Constitutional: chills; No fever; malaise Eyes: No vision change Ears/Nose/Throat: No epistaxis, No nasal drainage, No recent hearing loss Respiratory: As described under HPI Cardiovascular: As described under HPI Gastrointestinal: As described under HPI Genitourinary: No dysuria, No hematuria Musculoskeletal: no symptoms reported Skin: No rash on exposed areas, No ulcerations on exposed areas Psychiatric/Neurological: As described under HPI; No seizure, No focal weakness , No syncope Hematologic: No bleeding abnormalities SEU-Xkddew-Rotwnq Hx Patient Social History Alcohol Use: Denies Use Recreational Drug Use: No Smoking Status: Never a Smoker 2nd Hand Smoke Exposure: No Recent Foreign Travel: No Recent Infectious Disease Expo: No Hospitalization with Isolation: Denies Immunizations Up To Date Tetanus Booster (TDap): Unknown Date of Influenza Vaccine: Nov 18, 2018 Past Medical History PMH As described under Assessment. Family Medical History Family Medical History: She reports her father, mother and sister have all had strokes. No reported h/o CAD or SCD. Family History: Cardiovascular disease 19 FATHER, , Onset:60 years & older 19 MOTHER, , Onset:60 years & older FH: thyroid cancer G8 SISTER, Onset:50's - 60 Allergies and Home Medications Allergies Coded Allergies: No Known Drug Allergies (Unverified , 12/31/18) Home Medications Amlodipine Besylate 10 Mg Tablet, 10 MG PO DAILY Prescribed by: AMY NIELSEN on 06/04/19 1306 Cefdinir 300 Mg Capsule, 300 MG PO BID Prescribed by: AMY NIELSEN on 06/04/19 1306 Lisinopril 10 Mg Tablet, 10 MG PO DAILY Prescribed by: AMY NIELSEN on 06/04/19 1306 Metoprolol Succinate 100 Mg Tab.er.24h, 100 MG PO DAILY Prescribed by: AMY NIELSEN on 06/04/19 1306 Rivaroxaban 20 Mg Tablet, 20 MG PO DAILY, (Reported) Physical Exam-Cardiology Physical Exam Vital Signs/I&O Capillary Refill : Less Than 3 Seconds Constitutional: AAO x 3, well-developed, well-nourished HEENT: PERRL, hearing is well preserved, oral hygience is good Neck: No carotid bruit; carotid pulses are 2 + bilaterally Respiratory: No accessory muscle use, No respiratory distress; chest expansion is symmetric, chest is bilaterally symmetric, lungs clear to auscultation Cardiovascular: irregularly irregular; No JVD; S1 and S2 Gastrointestinal: No tender; soft, round, audible bowel sounds Extremities: no lower extremity edema bilateral Neurologic/Psychiatric: grossly intact (moves all extremities) Skin: No rash on exposed areas, No ulcerations on exposed areas Data Review Labs Microbiology 06/03/19 MRSA Screen - Final, Complete MRSA not isolated 06/02/19 Urine Culture - Final, Complete Escherichia coli 06/02/19 Fecal Leukocyte Stain - Final, Complete 06/02/19 C. difficile GDH Antigen & Toxins - Final, Complete 06/02/19 Stool Culture - Final, Complete Radiology NAME: CALVIN BALTAZARAdry Waldrop [facility] REC#: [id number] PT STATUS: ADM IN : 1955 PHYSICIAN: LEAH REED DO ADMIT DATE: 06/02/19/ICU Signed Date of Exam:06/03/19 CHEST 1 VIEW, AP/PA ONLY EXAMINATION: Portable erect AP chest at 326h. INDICATION: Malignant hypertension The cardiomegaly and the left lower lobe atelectasis/infiltrate and fluid seen on the prior exam of 06/02/2019 are again evident and no different. There may also still be a small amount of atelectasis/infiltrate in the right lung base. The upper lungs remain generally clear. The mediastinum is not widened. The osseous structures are intact. IMPRESSION: Stable chest. There has been no significant change since the prior exam. Dictated by: Dictated on workstation # [id number] Dict: 06/03/19 0700 Trans: 06/03/19 0812 [facility] [id number] Interpreted by: AKSHAT GRACIA MD Electronically signed by: AKSHAT GRACIA MD 06/03/19811 ECG Impression ECG Initial ECG Impression: Atrial Fibrillation A/P-Cardiology Assessment/Admission Diagnosis NSTEMI Near syncopal episode H/O HTN - currently uncontrolled HTN CHF UTI - management per medical services H/O blood clot CVA in 2019 Chronic a-fib OAC with Eliquis TSH [facility] 06-03-2019 Family h/o CVA (mother, father, sister) Discussion and Recomendations NSTEMI - advise cardiac cath. We have discussed with her the procedure, risks, benefits and potential complications of cardiac cath with possible ad hoc coronary intervention. She provides informed consent. Uncontrolled HTN - Cardene gtt Echocardiogram to eval structure and function Chronic a-fib - rate controlled - continue BB and OAC with Eliquis for stroke prophylaxis Resume Eliquis Replace potassium Monitor lab closely Further recs will be based on her hospital course We would like to thank medical services for this consult Clinical Quality Measures DVT/VTE Risk/Contraindication: Risk Factor Score Per Nursin RFS Level Per Nursing on Admit: 3=High Contraindications-Pharm: Other *list below* Contraindications-Mechi: Other *list below* Other: pt has a GI bleed, SHAYAN JADE Jun 03, 2019 09:01
[2019-06-03] MEDS: cefTRIAXone FOR IV USE 1,000 MG in WATER (STERILE) FOR INJECTION 10 ML IV SCH (10:30)
[2019-06-03] MEDS: meTOprolol SUCCINATE 100 MG (TOPROL XL) TAB PO SCH (10:30)
[2019-06-03] MEDS ORDERED: MIDAZOLAM 5 MG/5 ML (VERSED) VIAL ONE (10:48)
[2019-06-03] MEDS ORDERED: NS IV 1000 ML 1,000 ML ONE (10:48)
[2019-06-03] MEDS ORDERED: HEParin (CATH LAB) 1,000 ML IV ONE (10:48)
[2019-06-03] MEDS ORDERED: LIDOCAINE 1% INJ 20 ML 20 ML VIAL ONE (10:48)
[2019-06-03] MEDS ORDERED: fentaNYL INJECTION 100 MCG/2 ML AMP ONE (10:48)
--- NOTE | 2019-06-03 11:30 | NUR ---
PT TAKEN DOWN FOR HEART CATHETERIZATION. PROCEDURE EXPLAINED AND CONSENT SIGNED.
[2019-06-03] MEDS ORDERED: NS IV 1000 ML 1,000 ML IV SCH (12:00)
--- NOTE | 2019-06-03 12:16 | History & Physical-Hospitalist ---
History of Present Illness HPI/Chief Complaint Katie Sweeney is a 63-year-old female with past medical history of hypertension, stroke, atrial fibrillation, who presented with dizziness, nausea, and vomiting. She also reports having abdominal pain and diarrhea yesterday. This is since resolved. She denies any chest pain. She denies any shortness of breath. She reports associated diaphoresis. She denies any fevers or chills. She denies any dysuria. She does report urinary frequency. She reports a history of stroke last year with some minimal residual left-sided weakness. She was given TPA at that time. Source: patient Exam Limitations: no limitations Date Seen 06/03/19 Time Seen by a Provider: 09:35 Attending Physician Leah Wynn DO PCP No,Local Physician Referring Physician Date of Admission Jun 02, 2019 at 21:55 Home Medications & Allergies Home Medications Reviewed patient Home Medication Reconciliation performed by pharmacy medication reconciliations science technicians and/or nursing. Patients Allergies have been reviewed. Allergies Allergies Coded Allergies No Known Drug Allergies ([id number]/13/19) Past Fehbjgd-Epvulv-Inpnzw Hx Past Med/Social Hx: Reviewed Nursing Past Med/Soc Hx Patient Social History Alcohol Use: Denies Use Recreational Drug Use: No Smoking Status: Never a Smoker 2nd Hand Smoke Exposure: No Recent Foreign Travel: No Contact w/other who traveled: No Recent Hopitalizations: No Recent Infectious Disease Expo: No Immunizations Up To Date Tetanus Booster (TDap): Unknown Pediatric: No Date of Influenza Vaccine: Nov 18, 2018 Seasonal Allergies Seasonal Allergies: No Past Medical History Surgeries: Hysterectomy, Oophorectomy, Tonsillectomy Currently Using CPAP: No Currently Using BIPAP: No Cardiac: Atrial Fibrillation, Heart Attack, Hypertension Neurological: Stroke : No History of Blood Disorders: No Adverse Reaction to Blood Donovan: No Family History Cardiovascular disease 19 FATHER, , Onset:60 years & older 19 MOTHER, , Onset:60 years & older FH: thyroid cancer G8 SISTER, Onset:50's - 60 Review of Systems Constitutional: diaphoresis, dizziness EENTM: no symptoms reported Respiratory: no symptoms reported Cardiovascular: no symptoms reported Gastrointestinal: abdominal pain, diarrhea, nausea, vomiting Genitourinary: frequency Musculoskeletal: no symptoms reported Skin: no symptoms reported Psychiatric/Neurological: No Symptoms Reported Physical Exam Physical Exam Vital Signs Vital Signs - First Documented 06/02/19 16:13 Temp 36.5 Pulse 84 Resp 18 B/P (MAP) 224/160 (181) Pulse Ox 97 O2 Delivery Room Air Capillary Refill : Less Than 3 Seconds Height, Weight, BMI Height: '" Weight: lbs. oz. kg; 33.55 BMI Method: General Appearance: No Apparent Distress, Obese Neck: Normal Inspection, Supple Respiratory: Lungs Clear, Normal Breath Sounds, No Respiratory Distress Cardiovascular: Regular Rate, Rhythm, No Murmur, Irregularly Irregular ( ) Gastrointestinal: Normal Bowel Sounds, Non Tender, Soft Extremity: Normal Inspection, Non Tender, Pedal Edema Neurologic/Psychiatric: Alert, Oriented x3, No Motor/Sensory Deficits, Normal Mood/Affect Skin: Normal Color, Warm/Dry Results Results/Procedures Labs Laboratory Tests 06/02/19 17:04 06/03/19 02:14 Patient resulted labs reviewed. Imaging: Reviewed Imaging Report Assessment/Plan Admission Diagnosis Hypertensive emergency Admission Status: Inpatient Order (span 2 midnights) Reason for Inpatient Admission: Hypertensive emergency requiring further evaluation and treatment Assessment and Plan Hypertensive emergency NSTEMI 224/160 on arrival Started on IV Cardene Blood pressure improved 150/90 this morning Troponin 0.05 on arrival, repeat 2.311 Cardiology consulted, appreciate assistance Echocardiogram with normal ejection fraction, grade 1 diastolic dysfunction Planning for left heart catheterization Paroxysmal atrial fibrillation Continue metoprolol and Eliquis Positive fecal occult blood Hemoccult positive in the emergency room Hemoglobin high normal Will likely need outpatient colonoscopy Chronic kidney disease Creatinine 1.3, appears to be chronic kidney disease Continue to monitor Hypokalemia Continue to monitor and replace as needed DVT prophylaxis: Already receiving therapeutic anticoagulation Diagnosis/Problems Diagnosis/Problems (1) Hypertensive emergency Status: Acute (2) NSTEMI (non-ST elevation myocardial infarction) Status: Acute Clinical Quality Measures DVT/VTE Risk/Contraindication: Risk Factor Score Per Nursin RFS Level Per Nursing on Admit: 3=High Contraindications-Pharm: Other *list below* Contraindications-Mechi: Other *list below* Other: pt has a GI bleed, AMY NIELSEN MD Jun 03, 2019 12:16
--- NOTE | 2019-06-03 12:34 | Consultation-Cardiology ---
HPI-Cardiology Cardiology Consultation: Date of Consultation 06/03/19 Time Seen by a Provider: 11:00 Date of Admission Attending Physician Leah Wynn DO Admitting Physician No,Local Physician Consulting Physician RODRÍGUEZ COLLINS MD, MA, FACP, FACC, FSCAI, CCDS HPI: Chief Complaint: Reason for consultation: Severe hypertension, elevated troponin HPI Ms. Sweeney is a 63 year old female who lives in [place], [place], but has been staying with her sister in [place], [place] for approx the last week. She has been admitted to ICU 6 from the ED with c/o near syncope and uncontrolled HTN. 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 She reports she takes Eliquis, but did miss one day of her medication d/t the pharmacy not being able to fill it (Saturday's dose per her report). She did take her Eliquis Saturday and Saturday. She states yesterday she was sitting down she developed a sudden onset of profound dizziness with associated nausea and diaphoresis. She states the dizziness and diaphoresis lasted for several hours. She reports movement made it worse. She denies any c/o CP at the time. She reports having palpitations at the time as well. She is currently not reporting any further dizziness, diaphoresis or palpitations. She reports reports she has been having chills the last couple days, but no fever. She does report having n/v/d yesterday. She denies any SOB. She reports chronic, intermittent bilat LE swelling which is unchanged in the recent past. She reports she does not take ASA. Her PCP is Dr. Bell in [place], [place]. Review of Systems-Cardiology Review of Systems Constitutional: chills; No fever; malaise Eyes: No vision change Ears/Nose/Throat: No epistaxis, No nasal drainage, No recent hearing loss Respiratory: As described under HPI Cardiovascular: As described under HPI Gastrointestinal: As described under HPI Genitourinary: No dysuria, No hematuria Musculoskeletal: no symptoms reported Skin: No rash on exposed areas, No ulcerations on exposed areas Psychiatric/Neurological: As described under HPI; No seizure, No focal weakness, No syncope Hematologic: No bleeding abnormalities ZPE-Kugbrx-Uwgmrb Hx Patient Social History Alcohol Use: Denies Use Recreational Drug Use: No Smoking Status: Never a Smoker 2nd Hand Smoke Exposure: No Recent Foreign Travel: No Recent Infectious Disease Expo: No Hospitalization with Isolation: Denies Immunizations Up To Date Tetanus Booster (TDap): Unknown Date of Influenza Vaccine: Nov 18, 2018 Past Medical History PMH As described under Assessment. Family Medical History Family Medical History: She reports her father, mother and sister have all had strokes. No reported h/o CAD or SCD. Family History: Cardiovascular disease 19 FATHER, , Onset:60 years & older 19 MOTHER, , Onset:60 years & older FH: thyroid cancer G8 SISTER, Onset:50's - 60 Allergies and Home Medications Allergies Coded Allergies: No Known Drug Allergies (Unverified , 12/31/18) Patient Home Medication List Home Medication List Reviewed: Yes Physical Exam-Cardiology Physical Exam Vital Signs/I&O 06/03/19 06/03/19 06/03/19 06/03/19 00:30 00:40 00:45 01:00 Pulse 70 71 73 Resp 26 17 35 B/P (MAP) 169/121 (137) 166/126 (139) 172/103 (126) Pulse Ox 97 96 96 98 O2 Delivery Room Air Room Air Room Air Room Air 06/03/19 06/03/19 06/03/19 06/03/19 01:00 02:00 02:18 03:00 Pulse 73 67 64 68 Resp 21 11 B/P (MAP) 162/104 (123) 145/77 (99) 176/105 (128) Pulse Ox 95 95 97 O2 Delivery Room Air Room Air Room Air 06/03/19 06/03/19 06/03/19 06/03/19 03:35 04:00 04:30 05:00 Temp 37.0 Pulse 70 68 Resp 11 B/P (MAP) 151/91 (111) 138/91 (107) 166/108 (127) Pulse Ox 96 97 96 O2 Delivery Room Air Room Air Room Air Room Air 06/03/19 06/03/19 06/03/19 06/03/19 06:00 07:00 07:00 08:00 Pulse 71 76 74 65 Resp 24 19 B/P (MAP) 161/97 (118) 156/99 (118) 152/94 (113) Pulse Ox 96 97 96 O2 Delivery Room Air Room Air Room Air 06/03/19 06/03/19 06/03/19 06/03/19 09:00 10:00 11:00 11:45 Temp 37.2 Pulse 61 65 73 Resp 21 21 16 B/P (MAP) 158/98 (118) 144/87 (106) 153/92 (112) Pulse Ox 98 95 89 O2 Delivery Room Air Room Air Room Air Capillary Refill : Less Than 3 Seconds Constitutional: AAO x 3, well-developed, well-nourished HEENT: PERRL, hearing is well preserved, oral hygience is good Neck: No carotid bruit; carotid pulses are 2 + bilaterally Respiratory: No accessory muscle use, No respiratory distress; chest expansion is symmetric, chest is bilaterally symmetric, lungs clear to auscultation Cardiovascular: irregularly irregular; No JVD; S1 and S2 Gastrointestinal: No tender; soft, round, audible bowel sounds Extremities: no lower extremity edema bilateral Neurologic/Psychiatric: grossly intact (moves all extremities) Skin: No rash on exposed areas, No ulcerations on exposed areas Data Review Labs Laboratory Tests 06/02/19 17:04: White Blood Count 10.9, Red Blood Count 5.70, Hemoglobin 15.5, Hematocrit 48, Mean Corpuscular Volume 84, Mean Corpuscular Hemoglobin 27, Mean Corpuscular Hemoglobin Concent 32, Red Cell Distribution Width 15.3H, Platelet Count 217, Mean Platelet Volume 10.2, Prothrombin Time 13.6, INR Comment 1.0, Activated Partial Thromboplast Time 28, Sodium Level 141, Potassium Level 4.1, Chloride Level 105, Carbon Dioxide Level 22, Anion Gap 14, Blood Urea Nitrogen 30H, Creatinine 1.48H, Estimat Glomerular Filtration Rate 36, BUN/Creatinine Ratio 20, Glucose Level 108H, Calcium Level 9.7, Corrected Calcium 9.5, Magnesium Level 2.3, Total Bilirubin 1.5H, Aspartate Amino Transf (AST/SGOT) 25, Alanine Aminotransferase (ALT/SGPT) 30, Alkaline Phosphatase 78, Myoglobin 87.4, Troponin I 0.054H, B-Type Natriuretic Peptide 596.4H, Total Protein 7.5, Albumin 4.3, TSH [place] Testing 0.88 06/02/19 22:00: Urine Color YELLOW, Urine Clarity CLEAR, Urine pH 6.5, Urine Specific [place] 1.025H, Urine Protein 2+H, Urine Glucose (UA) NEGATIVE, Urine Ketones 1+H, Urine Nitrite POSITIVEH, Urine Bilirubin NEGATIVE, Urine Urobilinogen 0.2, Urine Leukocyte Esterase NEGATIVE, Urine RBC (Auto) 1+H, Urine RBC 2-5H, Urine WBC 2- 5, Urine Crystals PRESENTH, Urine Amorphous Sediment FEW JENNY URATESH, Urine Bacteria LARGEH, Urine Casts NONE, Urine Mucus NEGATIVE, Urine Culture Indicated YES 06/03/19 02:14: White Blood Count 15.0H, Red Blood Count 6.19H, Hemoglobin 16.9H, Hematocrit 51, Mean Corpuscular Volume 83, Mean Corpuscular Hemoglobin 27, Mean Corpuscular Hemoglobin Concent 33, Red Cell Distribution Width 15.8H, Platelet Count 193, Mean Platelet Volume 10.5H, Sodium Level 142, Potassium Level 3.5L, Chloride Level 106, Carbon Dioxide Level 20L, Anion Gap 16H, Blood Urea Nitrogen 29H, Creatinine 1.37H, Estimat Glomerular Filtration Rate 39, BUN/Creatinine Ratio 21, Glucose Level 141H, Calcium Level 9.7, Corrected Calcium 9.4, Magnesium Level 2.2, Total Bilirubin 1.2H, Aspartate Amino Transf (AST/SGOT) 42H, Alanine Aminotransferase (ALT/SGPT) 30, Alkaline Phosphatase 89, Troponin I 2.311*H, Total Protein 7.6, Albumin 4.4, Neutrophils (%) (Auto) 89H, Lymphocytes (%) (Auto) 6L, Monocytes (%) (Auto) 5, Eosinophils (%) (Auto) 0, Basophils (%) (Auto) 0, Neutrophils # (Auto) 13.4H, Lymphocytes # (Auto) 0.9L, Monocytes # (Auto) 0.7, Eosinophils # (Auto) 0.0, Basophils # (Auto) 0.0, Neutrophils % (Manual) 83, Lymphocytes % (Manual) 5, Monocytes % (Manual) 5, Band Neutrophils 7, Blood Morphology Comment NORMAL, Phosphorus Level 3.9, Triglycerides Level 76, Cholesterol Level 215H, LDL Cholesterol Direct 168H, VLDL Cholesterol 15, HDL Cholesterol 55 Microbiology 06/02/19 Urine Culture - Preliminary, Resulted Escherichia coli Laboratory Tests 06/02/19 17:04 06/03/19 02:14 A/P-Cardiology Assessment/Admission Diagnosis Malignant hypertension, associated with hypertensive cardiovascular disease (LVH with diastolic dysfunction) and renal insuff Elevated troponin, type2- UT, likely due to malignant hypertension (see cath results below) Card cath of 06/03/19: mild to mod cor ectasia with somewhat sluggish flow and mild cor plaque, LVEDP 20 mmHg, LVEF 65-70% Echo of 06/03/19: LVEF 50-55%, grade 1 gray dysfunction, biatrial enlargement, mild to mod MR, RVSP 20 mmHg Near syncopal episode on 06/02/19, no recurrence UTI - management per medical services 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 She provided informed consent. See post-cath assessment above Uncontrolled HTN - improved with Cardene gtt and oral Toprol XL. Try to get off iv mends Chronic a-fib - rate controlled - continue BB and OAC with Eliquis for stroke prophylaxis Resume Eliquis Replace potassium Monitor lab closely Further recs will be based on her hospital course Clinical Quality Measures DVT/VTE Risk/Contraindication: Risk Factor Score Per Nursin RFS Level Per Nursing on Admit: 3=High Contraindications-Pharm: Other *list below* Contraindications-Mechi: Other *list below* Other: pt has a GI bleed, RODRÍGUEZ COLLINS MD FACP [facility] Jun 03, 2019 12:34
--- NOTE | 2019-06-03 12:40 | NUR ---
PT BACK FROM HEART CATHETERIZATION. NO INTERVENTIONS NEEDED. PT ON BEDREST PER DR ORDER. NO NEW COMPLAINTS. NO ACUTE CHANGES. VITALS SIGNS STABLE. WILL CONTINUE TO MONITOR.
[2019-06-03] MEDS ORDERED: amLODIPine 10 MG (NORVASC) TAB PO NR (12:45)
[2019-06-03] MEDS ORDERED: PATIENT MAY USE OWN MEDS, ALL PO SCH (12:45)
--- NOTE | 2019-06-03 12:48 | CARDIAC CATHETERIZATION ---
DATE OF SERVICE: 06/03/2019 CARDIAC CATHETERIZATION REPORT The patient is a 63-year-old lady who comes in with generalized weakness, near syncope and severe, uncontrolled hypertension. Electrocardiogram showed atrial fibrillation with left ventricular hypertrophy and a strain pattern. Troponin was mildly elevated. Acute coronary syndrome was a concern. Informed consent was obtained for cardiac catheterization and ad hoc coronary intervention, if needed. DESCRIPTION OF PROCEDURE: She was brought to the cardiac catheterization laboratory. Right groin was prepared and draped in the usual sterile fashion. Lidocaine 1% was used for local anesthesia. Modified Seldinger technique was used to advance a 5-Eritrean sheath into right femoral artery. A 5-Erit[place]an JL4 catheter for left coronary angiography, 5-[place] JR4 catheter for right coronary angiography, 5-[place] pigtail catheter was used for left heart catheterization and left ventricular angiography. Angiography of the right femoral artery was carried out through the sheath. Mynx was used to achieve hemostasis following sheath removal. She tolerated the procedure well. HEMODYNAMICS: Left ventricular end-diastolic pressure following coronary angiography was 20 mmHg. There is no significant pressure gradient on pullback across the aortic valve. Ascending aortic pressure was 139/85 with a mean of 63 mmHg. CORONARY ANGIOGRAPHY: All coronary vessels are moderately ectatic. Coronary flow is somewhat sluggish. Mild coronary plaque is seen in all vessels. LEFT VENTRICULAR ANGIOGRAPHY: Left ventricular angiography was carried out in the right anterior oblique projection. Global left ventricular systolic function appears to be somewhat hyperdynamic. Left ventricular ejection fraction is estimated to be 65% to 70%. CONCLUSIONS: 1. Mild to moderate ectasia of the coronary vessels with a somewhat sluggish flow and mild coronary plaque. 2. Normal to hyperdynamic left ventricular systolic function with ejection fraction approximately 65% to 70%. 3. Mild to moderate elevation of left ventricular end-diastolic pressure. DISCUSSION AND RECOMMENDATIONS: Based on results of the study, it appears appropriate to continue a conservative regimen. Risk factor modification has been reviewed. Job ID: [id number] DocumentID: [id number] Dictated Date: 06/03/2019 12:25:57 Wide Area Network Administrator Date: 06/03/2019 12:47:53 Dictated By: RODRÍGUEZ COLLINS MD, MA, FACP, FACC,
[2019-06-03] MEDS: NS IV 1000 ML 1,000 ML IV SCH (14:31)
[2019-06-03] MEDS ORDERED: RIVA20TA PO (14:51)
--- NOTE | 2019-06-03 14:53 | NUR ---
SPOKE WITH THE PT, THE NURSE HAD A MED LIST FROM HER PHARMACY, I ALSO CALLED AND GOT A LIST FROM HER PCP TO COMPLETE THE MED REC THE PT WAS HAVING A HARD TIME ANSWERING MY QUESTIONS. THE LIST THAT I GOT FROM THE OFFICE SHOW ITEMS THAT HAVE NOT BEEN FILLED RECENTLY. (THE ONLY ONE ON THE MED LIST THAT HE PT DOES TAKE IS XARELTO AND THAT IS NEW. THE OFFICE HAD LISTED BYSTOLIC 10MG (IT WAS PUT ON HOLD AT [facility] AND IT WAS NOT FILLED), LOSARTAN /HCTZ 10/25MG (PHARMACY HAS NOT FILLED THIS SINCE 01-21-2019 FOR #30/30DS) AND METOPROLOL SUCC ER50MG (EXPLANATION LISTED BELOW) ON THE MED LIST FROM THE PHARMACY IT HAS LISTS METOPROLOL SUCC 50MG AND XARELTO 20MG WITH FILL DATES OF 06-02-2019 HOWEVER THE PT DID NOT RECEIEVE THE METOPROLOL. SHE DID GET THE XARELTO AND HAS STARTED TAKING. OTC MEDS: NONE
--- NOTE | 2019-06-03 15:37 | Cardiac Procedure Note-CS/ASA ---
Pre-Procedure Note Pre-Op Procedure Note H&P Reviewed The H&P was reviewed, patient examined and no changes noted. Date H&P Reviewed: Jun 03, 2019 Time H&P Reviewed: 11:00 Conscious Sedation Pre-Proced Time 11:00 ASA Score 3 For ASA 3 and 4: Consider anesthesia and medical clearance. Also, for patients with a history of failed moderate sedation consider anesthesia. Airway Lungs Heart ASA score ASA 1: a normal healthy patient ASA 2: a patient with a mild systemic disease (mid diabetes, controlled hypertension, obesity ASA 3: a patient with a severe systemic disease that limits activity (angina, COPD, prior Myocardial infarction) ASA 4: a patient with an incapacitating disease that is a constant threat to life (CHF, renal failure) ASA 5: a moribund patient not expected to survive 24 hrs. (ruptured aneurysm) ASA 6: a declared brain- patient whose organs are being harvested. For emergent operations, add the letter E after the classification Mallampati Classification Grade 2 Sedation Plan Analgesia, Amnesia, Plan communicated to team members, Discussed options with patient/fam, Discussed risks with patient/fam The patient is an appropriate candidate to undergo the planned procedure, sedation, and anesthesia. The patient immediately re-assessed prior to indication. RODRÍGUEZ COLLINS MD FACP FAC CCDS Jun 03, 2019 15:37
[2019-06-03] MEDS: hydrALAZINE (APRESOLINE) 25 MG TAB PO PRN (20:28)
[2019-06-03] MEDS: APIXABAN 5 MG (ELIQUIS) TABLET PO SCH (20:28)
[2019-06-04] VITALS (13 sets, daily range): BP systolic 132–172; BP diastolic 84–115
[2019-06-04] MEDS: NS IV 1000 ML 1,000 ML IV SCH (01:41)
--- NOTE | 2019-06-04 02:18 | NUR ---
Reported blood pressure 164/108 to TeleICU. Will continue to monitor.
[2019-06-04 03:23] LABS: BASOPHILS % (AUTO) 0 % (0-10); EOSINOPHILS # (AUTO) 0.1 10^3/uL (0.0-0.3); EOSINOPHILS % (AUTO) 1 % (0-10); HEMATOCRIT 44 % (35-52); HEMOGLOBIN 14.2 G/DL (11.5-16.0); LYMPHOCYTES % (AUTO) 17 % (12-44); MEAN CORPUSCULAR HEMOGLOBIN 27 PG (25-34); MEAN CORPUSCULAR HGB CONC 32 G/DL (32-36); MEAN CORPUSCULAR VOLUME 85 FL (80-99); MEAN PLATELET VOLUME 10.3 FL (7.4-10.4); MONOCYTES # (AUTO) 1.3 X 10^3 (0.0-1.0); MONOCYTES % (AUTO) 10 % (0-12); NEUTROPHILS # (AUTO) 8.7 X 10^3 (1.8-7.8); NEUTROPHILS % (AUTO) 72 % (42-75); PLATELET COUNT 159 10^3/uL (130-400); RED CELL DISTRIBUTION WIDTH 15.4 % (10.0-14.5); WHITE BLOOD COUNT 12.1 10^3/uL (4.3-11.0)
[2019-06-04 03:30] LABS: POTASSIUM 3.9 MMOL/L (3.6-5.0)
[2019-06-04 03:31] LABS: CALCIUM 8.8 MG/DL (8.5-10.1)
[2019-06-04 03:36] LABS: CREATININE SERUM 1.42 MG/DL (0.60-1.30)
[2019-06-04 03:38] LABS: MAGNESIUM 2.1 MG/DL (1.6-2.4)
[2019-06-04] MEDS: hydrALAZINE (APRESOLINE) 25 MG TAB PO PRN (04:29)
--- NOTE | 2019-06-04 05:14 | Pulmonary Consultation ---
History of Present Illness History of Present Illness Date Seen by Provider: Jun 03, 2019 (late note) Time Seen by Provider: 05:12 Date of Admission Allergies and Home Medications Allergies Coded Allergies: No Known Drug Allergies (Unverified , 12/31/18) Home Medications Rivaroxaban 20 Mg Tablet, 20 MG PO DAILY, (Reported) Past Ldimotp-Rqogna-Keckfs Hx Past Med/Social Hx: Reviewed Nursing Past Med/Soc Hx Patient Social History Alcohol Use: Denies Use Recreational Drug Use: No Smoking Status: Never a Smoker 2nd Hand Smoke Exposure: No Recent Foreign Travel: No Contact w/Someone Who Travel: No Recent Infectious Disease Expo: No Recent Hopitalizations: No Immunizations Up To Date Tetanus Booster (TDap): Unknown PED Vaccines UTD: No Date of Influenza Vaccine: Nov 18, 2018 Seasonal Allergies Seasonal Allergies: No Past Medical History Surgeries: Yes Hysterectomy, Oophorectomy, Tonsillectomy Respiratory: No Currently Using CPAP: No Currently Using BIPAP: No Cardiac: Yes Atrial Fibrillation, Heart Attack, Hypertension Neurological: Yes (CVA 2018) Stroke : No Genitourinary: No Gastrointestinal: No Musculoskeletal: No Endocrine: No HEENT: No Cancer: No Psychosocial: No Integumentary: No Blood Disorders: No Adverse Reaction/Blood Tranf: No Family Medical History Cardiovascular disease 19 FATHER, , Onset:60 years & older 19 MOTHER, , Onset:60 years & older FH: thyroid cancer G8 SISTER, Onset:50's - 60 Sepsis Event Evaluation Height, Weight, BMI Height: '" Weight: lbs. oz. kg; 33.55 BMI Method: Exam Exam Vital Signs Date Time Temp Pulse Resp B/P (MAP) Pulse Ox O2 Delivery O2 Flow Rate FiO2 06/04/19 04:00 96 Room Air 06/04/19 03:32 36.5 06/04/19 02:00 63 24 164/108 (126) 95 Room Air 06/04/19 01:00 70 19 154/111 (125) 95 Room Air 06/04/19 01:00 70 06/04/19 00:00 70 21 150/99 (116) 94 Room Air 06/04/19 00:00 96 Room Air 06/04/19 00:00 36.6 06/03/19 23:00 71 23 137/98 (111) 94 Room Air 06/03/19 22:00 66 18 142/97 (112) 94 Room Air 06/03/19 21:00 68 22 149/96 (113) 95 Room Air 06/03/19 20:27 36.3 70 21 166/108 (127) 62 Room Air 06/03/19 20:00 96 Room Air 06/03/19 20:00 61 17 166/108 (127) 95 Room Air 06/03/19 19:00 69 06/03/19 19:00 69 22 141/101 (114) 96 Room Air 06/03/19 18:00 71 16 120/95 (103) 97 Room Air 06/03/19 17:00 68 22 150/119 (129) 95 Room Air 06/03/19 16:00 63 21 155/88 (110) 95 Room Air 06/03/19 16:00 96 Room Air 06/03/19 15:00 64 20 157/86 (109) 95 Room Air 06/03/19 14:00 65 19 135/93 (107) 94 Room Air 06/03/19 13:00 68 16 137/82 (100) 94 Room Air 06/03/19 12:57 62 06/03/19 11:45 37.2 06/03/19 11:00 73 16 153/92 (112) 89 Room Air 06/03/19 10:00 65 21 144/87 (106) 95 Room Air 06/03/19 09:00 61 21 158/98 (118) 98 Room Air 06/03/19 08:00 96 Room Air 06/03/19 08:00 65 19 152/94 (113) 96 Room Air 06/03/19 07:00 74 06/03/19 07:00 76 24 156/99 (118) 97 Room Air 06/03/19 06:00 71 161/97 (118) 96 Room Air I & O 06/04/19 07:00 Intake Total 1735 ml Output Total 1400 ml Balance 335 ml Height & Weight Height: '" Weight: lbs. oz. kg; 33.55 BMI Method: General Appearance: No Apparent Distress, Obese Neck: Normal Inspection, Supple Respiratory: Lungs Clear, Normal Breath Sounds, No Respiratory Distress Cardiovascular: Regular Rate, Rhythm, No Murmur, Irregularly Irregular ( ) Capillary Refill: Less Than 3 Seconds Extremity: Normal Inspection, Non Tender, Pedal Edema Neurologic/Psychiatric: Alert, Oriented x3, No Motor/Sensory Deficits, Normal Mood/Affect Skin: Normal Color, Warm/Dry Results Lab Laboratory Tests 06/02/19 17:04 06/03/19 02:14 06/04/19 03:08 Assessment/Plan Assessment/Plan HTNE -Cardene gtt -monitor NSTEMI -Cardiology follwoing PAFIB CKD -monitor ROSHNI THORPE DO Jun 04, 2019 05:14
--- NOTE | 2019-06-04 06:06 | Diagnostic Imaging Report ---
Indication: Malignant hypertension Portable chest 3:33 AM There is cardiomegaly. There appears to some atelectasis at left lung base with a small left effusion. Right lung is clear. IMPRESSION: Left basilar atelectasis and effusion appears similar to the previous day. Dictated by: Dictated on workstation # [id number]
[2019-06-04] MEDS: POTASSIUM CL 10MEQ/50ML IVPB 50 ML IV SCH (06:17)
[2019-06-04] MEDS: MAGNESIUM 1 GM/100 ML IVPB 100 ML IV SCH (06:17)
[2019-06-04] MEDS: KCL 20 MEQ TAB (K-DUR) PO SCH (06:18)
[2019-06-04] MEDS: cefTRIAXone FOR IV USE 1,000 MG in WATER (STERILE) FOR INJECTION 10 ML IV SCH (06:45)
[2019-06-04] MEDS ORDERED: AZITHROMYCIN 250 MG TAB (ZITHROMAX) PO SCH (09:00)
[2019-06-04] MEDS ORDERED: amLODIPine 10 MG (NORVASC) TAB PO SCH (09:00)
[2019-06-04] MEDS: APIXABAN 5 MG (ELIQUIS) TABLET PO SCH (09:06)
[2019-06-04] MEDS: meTOprolol SUCCINATE 100 MG (TOPROL XL) TAB PO SCH (09:07)
[2019-06-04] MEDS ORDERED: CEFDINIR 300 MG (OMNICEF) CAP PO NR (11:30)
[2019-06-04] MEDS ORDERED: lisINopril 10 MG (PRINIVIL) TABLET ONE (12:27)
[2019-06-04] MEDS ORDERED: lisINopril 10 MG (PRINIVIL) TABLET PO NR (12:45)
[2019-06-04] MEDS ORDERED: MTP100TCR PO (13:06)
[2019-06-04] MEDS ORDERED: LISI10TA2 PO (13:06)
[2019-06-04] MEDS ORDERED: AMLO10TA7 PO (13:06)
[2019-06-04] MEDS ORDERED: CEFD300C3 PO (13:06)
--- NOTE | 2019-06-04 13:27 | Cardiology Progress Note ---
Cardiology SOAP Progress Note Subjective: No cardiac complaints. No headache. Objective: I&O/Vital Signs 06/04/19 06/04/19 06/04/19 06/04/19 02:00 03:00 03:32 04:00 Temp 36.5 Pulse 63 66 Resp 24 23 B/P (MAP) 164/108 (126) 156/111 (126) Pulse Ox 95 95 96 O2 Delivery Room Air Room Air Room Air 06/04/19 06/04/19 06/04/19 06/04/19 04:00 05:00 06:00 06:40 Pulse 66 65 65 63 Resp 12 20 15 B/P (MAP) 169/115 (133) 155/99 (117) 171/108 (129) Pulse Ox 96 96 97 O2 Delivery Room Air Room Air Room Air 06/04/19 06/04/19 06/04/19 06/04/19 07:00 08:00 09:00 10:00 Pulse 77 70 70 69 Resp 28 25 31 24 B/P (MAP) 172/84 (113) 142/86 (104) 153/105 (121) 159/98 (118) Pulse Ox 76 97 97 O2 Delivery Room Air Room Air Room Air Room Air 06/04/19 06/04/19 06/04/19 06/04/19 11:00 11:12 12:15 12:40 Temp 36.7 Pulse 63 63 72 Resp 27 B/P (MAP) 132/110 (117) 154/97 (116) Pulse Ox 95 O2 Delivery Room Air Room Air 06/04/19 00:00 Intake Total 1450 ml Output Total 1000 ml Balance 450 ml Constitutional: AAO x 3, well-developed, well-nourished Respiratory: No accessory muscle use, No respiratory distress; chest expansion is symmetric, chest is bilaterally symmetric, lungs clear to auscultation Cardiovascular: irregularly irregular; No JVD; S1 and S2 Gastrointestional: No tender; soft, round, audible bowel sounds Extremities: no lower extremity edema bilateral Neurologic/Psychiatric: grossly intact (moves all extremities) Skin: No rash on exposed areas, No ulcerations on exposed areas Results/Procedures: Labs Laboratory Tests 06/04/19 03:08: White Blood Count 12.1H, Red Blood Count 5.22, Hemoglobin 14.2, Hematocrit 44, Mean Corpuscular Volume 85, Mean Corpuscular Hemoglobin 27, Mean Corpuscular Hemoglobin Concent 32, Red Cell Distribution Width 15.4H, Platelet Count 159, Mean Platelet Volume 10.3, Neutrophils (%) (Auto) 72, Lymphocytes (%) (Auto) 17, Monocytes (%) (Auto) 10, Eosinophils (%) (Auto) 1, Basophils (%) (Auto) 0, Neutrophils # (Auto) 8.7H, Lymphocytes # (Auto) 2.0, Monocytes # (Auto) 1.3H, Eosinophils # (Auto) 0.1, Basophils # (Auto) 0.0, Sodium Level 141, Potassium Level 3.9, Chloride Level 107, Carbon Dioxide Level 23, Anion Gap 11, Blood Urea Nitrogen 24H, Creatinine 1.42H, Estimat Glomerular Filtration Rate 37, BUN/Creatinine Ratio 17, Glucose Level 91, Calcium Level 8.8, Phosphorus Level 3.0, Magnesium Level 2.1 Microbiology 06/03/19 MRSA Screen - Final, Complete MRSA not isolated 06/02/19 Urine Culture - Final, Complete Escherichia coli 06/02/19 Fecal Leukocyte Stain, Resulted Pending 06/02/19 C. difficile GDH Antigen & Toxins - Final, Resulted 06/02/19 Stool Culture, Resulted Pending A/P: Assessment/Dx: Malignant hypertension, associated with hypertensive cardiovascular disease (LVH with diastolic dysfunction) and renal insuff. 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 Blood pressure better controlled however systolic blood pressure of 150s. Will add lisinopril 10 mg daily. A blood pressure stays stable patient can be discharged later today. Chronic a-fib - rate controlled - continue BB and OAC with Eliquis for stroke prophylaxis Eliquis. Patient can be discharged to follow-up with Dr. Field as an outpatient. Thank you for your consultation. Please call me if you have any questions. Litzy Khan MD, FACP, FACC, FSCAI, FHRS, CCDS Interventional Cardiology Cardiac Electrophysiology Vascular Medicine and Endovascular Interventions Raphael KHAN MD Jun 04, 2019 13:27
--- NOTE | 2019-06-04 13:34 | NUR ---
"RD ASSESSMENT PMHx: HTN; stroke; afib; NE PT INTERACTION: Pt was awake and pleasant during nutrition assessment. Pt states current appetite is great. Note avg PO intake of 33% x1d, per chart review. Pt states following a regular diet at home, and has no issues with chewing/swallowing food. Note pt has some missing teeth, per visual assessment. Pt states recent issues with nausea/vomiting/diarrhea. Note last BM was 06/03 and pt not currently on bowel regimen, per chart review. Pt states no recent wt changes. Note recent 11# wt gain x5mon, per chart review. ABNORMAL NUTRITION-RELATED LAB VALUES LOW: HIGH: BUN 24; cr 1.42 Est. kcal needs: 8359-1135 kcal | 20-25 kcal/kg Est. Pro needs: 67-84 g Pro | 0.8-1.0 g Pro/kg PES STATEMENT: Inadequate oral intake (NI-2.1) related to loss of appetite | nausea | vomiting | diarrhea as evidenced by pt interview | avg PO intake 33% x1d INTERVENTION: Continue with current diet order of CHO 60g/m 1snack diet. Add Glucerna (vary) to meals TID, for increased kcal intake. Provides 220 kcal and 10 g Pro per serving. Will continue to follow and reassess as pt needs, intake, and status change. MONITOR/EVALUATE: PO Intake; Plan of Care; Hydration Status; Weight Status; Lab Values Jewell Sanchez, MS, RD, LD"
--- NOTE | 2019-06-04 14:14 | Physician Query Clarification ---
PQ-CHF Specificity Admission Date: Jun 02, 2019 at 21:55 Discharge Date: The medical record reflects the following clinical scenario: History/Risk Factors: Hypertensive cardiorenal disease/Hypertensive emergency CHF Chronic kidney disease Clinical Findings:BNP 596.4. Echo showing EF 50-55%.(grade 1 diastolic dysfunction). Treatment:Vasotec injection 2.5 mg,Toprol XL 50 mg, Nicardipine HCI 50mg. Question: Can you further specify the acuity &/or type of CHF per the clinical indicators above? Please document a response in the Progress Notes or Discharge Summary. 1. Acuity: Acute, Chronic or Acute on Chronic 2. Type: Systolic, Diastolic or Systolic & Diastolic 3. Unspecified: CHF cannot be further specified regarding type or acuity 4. Other, with explanation of clinical findings 5. Clinically undetermined, no explanation for clinical findings PHYSICIAN RESPONSE Acuity: Other (list below) Type: Other (explain below) Other, clinical findings No decompensated CHF at the time of my exam Please remember a lack of response to the above will prompt a phone page by CDI/Coding staff. In responding to this query, please exercise your independent professional judgment. The purpose of this communication is to more accurately reflect the complexity of your patients condition. The fact that a question is asked does not imply that any particular answer is desired or expected. Thank you for your timely response to this clarification. Requestors name: Jaycee Paris [facility] Phone # ext [phone] or [phone] THIS PHYSICIAN QUERY FORM IS A PERMANENT PART OF THE MEDICAL RECORD JAYCEE PARIS Jun 04, 2019 14:14 RODRÍGUEZ COLLINS MD [facility] Jun 09, 2019 14:55
--- NOTE | 2019-06-04 14:21 | Physician Query Clarification ---
PQ-Conflicting Diagnosis Admission/Discharge Admission Date: Jun 02, 2019 at 21:55 Discharge Date: The medical record reflects the following clinical scenario: History/Risk Factors: Elevated troponin Hypertensive cardiorenal disease Hypertensive emergency Clinical Findings:Troponin 0.054 on arrival repeat on 06/02 2.311. Treatment:Cardiac cath, Toprol XL 50 mg, Cardene IV 50 mg. Question: Do you agree with the impression of Type II-NV per Dr. Field. Please document a response in Progress Note or Discharge Summary. 1. Yes 2. No 3. Other, with explanation of clinical findings 4. Clinically undetermined, no explanation for clinical findings. PHYSICIAN RESPONSE Do you agree w/Consulting Dx?: Other,explanation/clincal findings Explanation of clincal finding NSTEMI, type 2 Please remember a lack of response to the above will prompt a phone page by CDI/Coding staff. In responding to this query, please exercise your independent professional judgment. The purpose of this communication is to more accurately reflect the complexity of your patients condition. The fact that a question is asked does not imply that any particular answer is desired or expected. Thank you for your timely response to this clarification. Requestors name: Jaycee Paris [facility] Phone # ext [phone] or [phone] THIS PHYSICIAN QUERY FORM IS A PERMANENT PART OF THE MEDICAL RECORD JAYCEE PARIS Jun 04, 2019 14:21 AMY NIELSEN MD Jun 04, 2019 17:54
[2019-06-04] MEDS ORDERED: CEFDINIR 300 MG (OMNICEF) CAP PO SCH (21:00)
[2019-06-05] MEDS ORDERED: lisINopril 10 MG (PRINIVIL) TABLET PO SCH (09:00)
--- NOTE | 2019-06-05 12:57 | Discharge Summary ---
Discharge Summary Hospital Course Was the Problem List Reviewed?: Yes Problems/Dx: (1) Hypertensive emergency Status: Acute (2) NSTEMI (non-ST elevation myocardial infarction) Status: Acute (3) UTI (urinary tract infection) Status: Acute (4) Fecal occult blood test positive Status: Acute Hospital Course Date of Admission: Jun 02, 2019 at 21:55 Admission Diagnosis : Hypertensive emergency Family Physician/Provider: ValerieLocal Physician Date of Discharge: 06/05/19 Discharge Diagnosis: Hypertensive emergency, NSTEMI type II, UTI Hospital Course: Katie Sweeney is a 63-year-old female who presented with dizziness, nausea, and vomiting and was admitted with hypertensive emergency. Her antihypertensives were adjusted and her blood pressure improved. She was started on amlodipine and lisinopril. She was continued on metoprolol. Her troponin was elevated and trended upward. She underwent a left heart catheterization which revealed mild coronary artery disease and no intervention was required. She was also found to be in atrial fibrillation and was continued on her Xarelto. She had a urinary tract infection and was given a course of Omnicef. She was found to have a positive fecal occult blood and should undergo a screening colonoscopy as an outpatient. Her course was complicated by chronic kidney disease which was stable and hypokalemia which was treated and resolved. She should follow-up with her primary care physician as well as cardiology. Labs and Pending Lab Test: Microbiology 06/03/19 MRSA Screen - Final, Complete MRSA not isolated 06/02/19 Urine Culture - Final, Complete Escherichia coli 06/02/19 Fecal Leukocyte Stain - Final, Resulted 06/02/19 C. difficile GDH Antigen & Toxins - Final, Resulted 06/02/19 Stool Culture, Resulted Pending Home Meds Active Metoprolol Succinate 100 Mg Tab.er.24h 100 Mg PO DAILY 30 Days Lisinopril 10 Mg Tablet 10 Mg PO DAILY 30 Days Amlodipine Besylate 10 Mg Tablet 10 Mg PO DAILY 30 Days Cefdinir 300 Mg Capsule 300 Mg PO BID 6 Days Reported Xarelto (Rivaroxaban) 20 Mg Tablet 20 Mg PO DAILY Assessment/Pt Instructions Take medications as prescribed. Complete her course of antibiotics even if you're feeling better. Follow up with cardiology. Discharge Planning: <30 minutes discharge planning Discharge Instructions Discharge Diet: Low Sodium Diet Activity as Tolerated: Yes Consultations Cardiology Discharge Physical Examination Vital Signs Vital Signs Date Time Temp Pulse Resp B/P (MAP) Pulse Ox O2 Delivery O2 Flow Rate FiO2 06/04/19 14:03 06/04/19 12:40 72 06/04/19 12:15 27 Room Air 06/04/19 12:00 96 06/04/19 11:12 36.7 General Appearance: No Apparent Distress, Obese Respiratory: Lungs Clear, Normal Breath Sounds, No Respiratory Distress Cardiovascular: No Edema, No Murmur, Irregularly Irregular Gastrointestinal: Normal Bowel Sounds, Non Tender, Soft Extremity: Normal Inspection, Non Tender, No Pedal Edema Skin: Normal Color, Warm/Dry Neurologic/Psychiatric: Alert, Oriented x3, No Motor/Sensory Deficits, Normal Mood/Affect Allergies: Coded Allergies: No Known Drug Allergies (Unverified , 12/31/18) Discharge Summary Date of Admission Jun 02, 2019 at 21:55 Date of Discharge Jun 04, 2019 at 16:00 Discharge Date: Jun 04, 2019 Discharge Time: 16:00 Admission Diagnosis Hypertensive emergency Consults/Procedures Consulations Cardiology Discharge Diagnosis Hypertensive emergency, NSTEMI (1) Hypertensive emergency Status: Acute (2) NSTEMI (non-ST elevation myocardial infarction) Status: Acute (3) UTI (urinary tract infection) Status: Acute (4) Fecal occult blood test positive Status: Acute Clinical Quality Measures DVT/VTE Risk/Contraindication: Risk Factor Score Per Nursin RFS Level Per Nursing on Admit: 3=High Contraindications-Pharm: Other *list below* Contraindications-Mechi: Other *list below* Other: pt has a GI bleed, AMY NIELSEN MD Jun 05, 2019 12:51
== END 2019-06-04 16:00 | disposition home or self-care (01) | DRG 281 ==
LOC: EDUNIT# 16:02 → ER 16:03 → ICU 21:55
PROVIDERS: ADMIT Internal Medicine; ATTEND Internal Medicine
PROC: 4A023N7 Measurement of Cardiac Sampling and Pressure, Left Heart, Percutaneous Approach (ICD-10-PCS; principal; 2019-06-03)
PROC: B2111ZZ Fluoroscopy of Multiple Coronary Arteries using Low Osmolar Contrast (ICD-10-PCS; 2019-06-03)
PROC: B2151ZZ Fluoroscopy of Left Heart using Low Osmolar Contrast (ICD-10-PCS; 2019-06-03)
DX: I13.0 Hypertensive heart and chronic kidney disease with heart failure and stage 1 through stage 4 chronic kidney disease, or unspecified chronic kidney disease (principal); I16.1 Hypertensive emergency; I50.9 Heart failure, unspecified; N18.9 Chronic kidney disease, unspecified; I21.A1 Myocardial infarction type 2; N39.0 Urinary tract infection, site not specified; B96.20 Unspecified Escherichia coli [E. coli] as the cause of diseases classified elsewhere; I25.2 Old myocardial infarction; I25.10 Atherosclerotic heart disease of native coronary artery without angina pectoris; I48.0 Paroxysmal atrial fibrillation; I77.89 Other specified disorders of arteries and arterioles; R55 Syncope and collapse; F41.9 Anxiety disorder, unspecified; R19.5 Other fecal abnormalities; E87.6 Hypokalemia; I34.0 Nonrheumatic mitral (valve) insufficiency; I69.328 Other speech and language deficits following cerebral infarction; E66.9 Obesity, unspecified; Z68.33 Body mass index [BMI] 33.0-33.9, adult; Z79.01 Long term (current) use of anticoagulants
CPT/HCPCS: 36415; 71045; 80048; 80053; 80061; 81000; 83735; 83874; 83880; 84100; 84443; 84484; 85007; 85025; 85027; 85610; 85730; 87015; 87045; 87046; 87077; 87081; 87088; 87186; 87324; 87449; 87899; 89055; 93005; 93041; 93306; 93458; 96365; 96366; 96375; 96376

== ENCOUNTER 2019-08-19 14:15 | Emergency (ER) | payer MEDICARE, MEDICAID ==
[~2019-08-19] VITALS: Ht 162.5 cm; Wt 83.0 kg
[~2019-08-19 14:15] MED LIST: AMLO10TA7 PO; CEFD300C3 PO; LISI10TA2 PO; MTP100TCR PO; RIVA20TA PO
--- NOTE | 2019-08-19 15:26 | ED EENT ---
History of Present Illness General Chief Complaint: Nasal Problems Stated Complaint: NOSE BLEED Nursing Triage Note: pt reports nose bleed that started around mid morning. pt reports no trauma to nose. pt is on eliquis for afib Source: patient History of Present Illness Date Seen by Provider: Aug 19, 2019 Time Seen by Provider: 15:25 Initial Comments 64-year-old female presents with nosebleed. She is having some bleeding of her left there. She denies any trauma. She reports that she is on Eliquis. She's been holding some pressure but still bleeding a little bit. She denies any dizziness, lightheadedness, shortness of breath, fevers chills or other complaints. Allergies and Home Medications Allergies Coded Allergies: No Known Drug Allergies (Unverified , 12/31/18) Home Medications Amlodipine Besylate 10 Mg Tablet, 10 MG PO DAILY Prescribed by: AMY NIELSEN on 06/04/19 1306 Cefdinir 300 Mg Capsule, 300 MG PO BID Prescribed by: AMY NIELSEN on 06/04/19 1306 Lisinopril 10 Mg Tablet, 10 MG PO DAILY Prescribed by: AMY NIELSEN on 06/04/19 1306 Metoprolol Succinate 100 Mg Tab.er.24h, 100 MG PO DAILY Prescribed by: AMY NIELSEN on 06/04/19 1306 Rivaroxaban 20 Mg Tablet, 20 MG PO DAILY, (Reported) Patient Home Medication List Home Medication List Reviewed: Yes Review of Systems Review of Systems Constitutional: No chills, No malaise Eyes: No Symptoms Reported Ears: No Symptoms Reported Nose: epistaxis Mouth: no symptoms reported Throat: no symptoms reported Respiratory: No cough, No short of breath Musculoskeletal: no symptoms reported Skin: no symptoms reported Past Ythemdc-Xjowrz-Jxaxnh Hx Past Med/Social Hx: Reviewed Nursing Past Med/Soc Hx Patient Social History Alcohol Use: Denies Use Recreational Drug Use: No Smoking Status: Never a Smoker 2nd Hand Smoke Exposure: No Recent Foreign Travel: No Contact w/Someone Who Travel: No Recent Infectious Disease Expo: No Recent Hopitalizations: No Physical Abuse: No Sexual Abuse: No Immunizations Up To Date Tetanus Booster (TDap): Unknown PED Vaccines UTD: No Date of Influenza Vaccine: Nov 18, 2018 Seasonal Allergies Seasonal Allergies: No Past Medical History Surgeries: Yes Hysterectomy, Oophorectomy, Tonsillectomy Respiratory: No Currently Using CPAP: No Currently Using BIPAP: No Cardiac: Yes Atrial Fibrillation, Heart Attack, Hypertension Neurological: Yes (CVA 2019) Stroke Genitourinary: No Gastrointestinal: No Musculoskeletal: No Endocrine: No HEENT: No Cancer: No Psychosocial: No Integumentary: No Blood Disorders: No Adverse Reaction/Blood Tranf: No Family Medical History Cardiovascular disease 19 FATHER, , Onset:60 years & older 19 MOTHER, , Onset:60 years & older FH: thyroid cancer G8 SISTER, Onset:50's - 60 Physical Exam Vital Signs Vital Signs - First Documented 08/19/19 15:21 Temp 36.1 Pulse 63 Resp 16 B/P (MAP) 145/97 (113) Pulse Ox 98 Height, Weight, BMI Height: '" Weight: lbs. oz. kg; 31.00 BMI Method: General Appearance: WD/WN, no apparent distress Eyes: bilateral eye normal inspection Nose: active bleeding (mild left nare) Cardiovascular: normal peripheral pulses Respiratory: lungs clear, normal breath sounds Gastrointestinal: non tender Neurologic/Psychiatric: alert, normal mood/affect, oriented x 3 Skin: normal color, warm/dry Procedures/Interventions Nasal : Nasal Location: Left Nasal Drops Instilled: Afrin Nasal Procedures: Rapid Rhino Progress Patient tolerated without difficulty. Progress/Results/Core Measures Results/Orders My Orders Orders - MINDY GALLEGOS DO Oxymetazoline 0.05% Nasal [place] (Afrin 0. (08/19/19 21:00) Oxymetazoline 0.05% Nasal [place] (Afrin 0. (08/19/19 15:35) Vital Signs/I&O 08/19/19 15:21 Temp 36.1 Pulse 63 Resp 16 B/P (MAP) 145/97 (113) Pulse Ox 98 Blood Pressure Mean: 113 Progress Progress Note : Time: 17:32 Progress Note Patient continued to have small amount of left nosebleed despite multiple doses of Afrin and pressure. Rhino Rocket was placed. I asked her follow-up with her primary care tomorrow for removal and recheck of her symptoms. Patient is discharged home in stable condition Departure Impression Primary Impression: Epistaxis Disposition: 01 HOME, SELF-CARE Condition: Stable Departure-Patient Inst. Referrals: NO,LOCAL PHYSICIAN (PCP/Family) Primary Care Physician Patient Instructions: Nosebleeds (DC) Add. Discharge Instructions: Follow-up with your primary care provider tomorrow for removal of your nasal packing All discharge instructions reviewed with patient and/or family. Voiced understanding. MINDY GALLEGOS DO Aug 19, 2019 15:25
[2019-08-19] MEDS ORDERED: OXYMETAZOLINE (AFRIN) 0.05% NA 30 ML BTL ONE (15:35)
--- NOTE | 2019-08-19 16:36 | NUR ---
Ender yoo in [facility] - 08/19/19 at 1810 by PMCCLURE ARIELLE QUEVEDO
--- NOTE | 2019-08-19 16:36 | NUR ---
NOSE CLAMP PLACED.
[2019-08-19 17:51] VITALS: BP 149/103
--- NOTE | 2019-08-19 18:10 | NUR ---
RHINO ROCKET IN PLACE IN [place] NO BLEEDING. B/P ON DISCHARGE. 149/[address] EL PAYTON WITH.
--- OUTSIDE RECORDS SUMMARY | 2019-08-19 18:27 | XMS REPORT | Continuity of Care Document ---
Author Organization Unknown Address Unknown Phone Unavailable Allergies Active Description Code Type Severity Reaction Onset Reported/Identified Relationship to Patient Clinical Status Yes No Known Drug Allergies [id number] Drug Allergy Unknown N/A 12/31/2018 Medications There is no data. Problems Date Dx Coded Attending Type Code Diagnosis Diagnosed By 12/31/2018 GUY REDDY APRN Ot I61 .8 OTHER NONTRAUMATIC INTRACEREBRAL HEMORRH 12/31/2018 GUY REDDY LAND TITLE EXAMINER Ot R11.10 VOMITING, UNSPECIFIED 01/02/2019 GUY REDDY LAND TITLE EXAMINER Ot I61 .8 OTHER NONTRAUMATIC INTRACEREBRAL HEMORRH 01/02/2019 GUY REDDY LAND TITLE EXAMINER Ot R11.10 VOMITING, UNSPECIFIED 06/04/2019 REED DO, HEBER Ot B96.20 UNSP ESCHERICHIA COLI THE CAUSE OF DI 06/04/2019 ERED DO, HEBER Ot E66.9 OBESITY, UNSPECIFIED 06/04/2019 REED DO, HEBER Ot E87.6 HYPOKALEMIA 06/04/2019 REED DO, HEBER Ot F41.9 ANXIETY DISORDER, UNSPECIFIED 06/04/2019 REED DO, HEBER Ot I13.0 HYP HRT CHR KDNY DIS W HRT FAIL AND ST 06/04/2019 REED DO, HEBER Ot I16.1 HYPERTENSIVE EMERGENCY 06/04/2019 REED DO, HEBER Ot I21.A1 MYOCARDIAL INFARCTION TYPE 2 06/04/2019 REED DO, HEBER Ot I25.10 ATHSCL HEART DISEASE OF [place] CORONARY 06/04/2019 REED DO, HEBER Ot I25.2 OLD MYOCARDIAL INFARCTION 06/04/2019 REED DO, HEBER Ot I34.0 NONRHEUMATIC MITRAL (VALVE) INSUFFICIENC 06/04/2019 REED DO, HEBER Ot I48.0 PAROXYSMAL ATRIAL FIBRILLATION 06/04/2019 REED DO, HEBER Ot I50.9 HEART FAILURE, UNSPECIFIED 06/04/2019 REED DO, HEBER Ot 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 06/04/2019 GREG REED DOI Ot I77.89 OTHER SPECIFIED DISORDERS OF ARTERIES AN 06/04/2019 GREG REED DOI Ot N18.9 CHRONIC KIDNEY DISEASE, UNSPECIFIED 06/04/2019 BRIANNA NEWBY HEBER Ot N39.0 URINARY TRACT INFECTION, SITE NOT SPECIF 06/04/2019 GREG REED DOI Ot R19.5 OTHER FECAL ABNORMALITIES 06/04/2019 BRIANNA NEWBY HEBER Ot R55 SYNCOPE AND COLLAPSE 06/04/2019 BRIANNA NEWBY HEBER Ot Z68.33 BODY MASS INDEX (BMI) 33.0-33.9, ADULT 06/04/2019 GREG REED DOI Ot 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 Procedures Code Description Performed By Per berenice On [id number] [place] ASURE OF CARDIAC SAMPL PRESSURE, L H 06/03/2019 [id number] FL UOROSCOPY OF MULT COR ART USING L OSM 06/03/2019 [id number] FL UOROSCOPY OF LEFT HEART USING LOW OSMO 06/03/2019 Results Test Result Range Complete urinalysis with [...] by glucometer (mas s/volume) 130 mg/dL 70-110 Stool leukocytes detection by light micr oscopy - 06/02/19 08:15 FECAL WBC RESULTS MODERATE # WBC'S OBSERVED ON DIRECT SMEAR NRG FECAL NOTE FECAL LEUKOCYTES MAY BE INTE RMITTENTLY PRESENT OR NRG FECAL NOTE UNEVENLY DISTRIBUTED IN STOO L SPECIMENS, AND WBC NRG FECAL NOTE MORPHOLOGY DEGRADES DURING TRANSPORT NRG FECAL NOTE NOTE: NRG C DIFFICILE AG + TOXIN A/B. - 06/02/19 0 8:15 RESULTS NEGATIVE FOR ANTIGEN AND TOXIN A/B NRG Stool bacteria identification by culture - 06/02/19 08:15 Automated blood complete blood count (he mogram) [...] ligh t microscopy FEW JENNY URATES NRG Bacterial urine culture - 06/02/19 22:00 Bacterial urine culture [id number] NRG COLONY COUNT >100,000/ML NRG FTX;REPORTABLE RML CONFIRMED ID 06/02 17:05 NRG SUSCEPTIBILITY SUSCEPTIBILITY REPORTED 06/04/19 10: 05 NRG RAPID ID PRELIM RAPID ID TEST AT [facility] 06/02 08:00 NRG ID CONFIRMATION GRAM NEG KEVIN REPORTED BY [facility] 06/02 15:06 NRG Dirithromycin susceptibility test by dis k diffusion - 06/02/19 22:00 Gentamicin susceptibility test by minimum inhibitory c oncentration <= NRG Trimethoprim/sulfamethoxazole susceptibi lity test by minimum inhibitoryconcentration <= NRG Levofloxacin susceptibility test by minimum inhibitory concentration <= NRG Ampicillin susceptibility test by minimum inhibitory c oncentration <= NRG Cefazolin susceptibility test by minimum inhibitory co ncentration <= NRG Ceftriaxone susceptibility test by minimum inhibitory concentration <= NRG Ciprofloxacin susceptibility test by minimum inhibitor y concentration <= NRG Meropenem susceptibility test by minimum inhibitory co ncentration <= NRG Nitrofurantoin susceptibility test by mi nimum inhibitory concentration <= NRG Amoxicillin and clavulanate potassium susc YAKELIN <= NRG Methicillin resistant Staphylococcus aur eus (MRSA) screening culture - 06/03/19 00:30 Methicillin resistant Staphylococcus aureus (MRSA) scr eening culture NEG NRG Complete blood count (CBC) with automate d white blood cell (WBC) differential - 06/03/19 02:14 Blood leukocytes automated count (number/volume) 15.0 10*3/uL 4.3-11.0 Blood erythrocytes automated count (number/volume) 6.19 10*6/uL 4.35-5.85 Venous blood hemoglobin measurement (mass/volume) 16.9 g/dL 11.5-16.0 Blood hematocrit (volume fraction) 51 % 35-52 Automated erythrocyte mean corpuscular volume 83 [ foz_us] 80-99 Automated erythrocyte mean corpuscular h emoglobin (mass per erythrocyte) 27 pg 25-34 Automated erythrocyte mean corpuscular h emoglobin concentration measurement (mass/volume) 33 g/dL 32-36 Automated erythrocyte distribution width ratio 15. 8 % 10.0- 14.5 Automated blood platelet count (count/volume) 193 10*3/uL 130-400 Automated blood platelet mean volume measurement 10.5 [foz_us] 7.4-10.4 Automated blood neutrophils/100 leukocytes 89 % 42-75 Automated blood lymphocytes/100 leukocytes 6 % 12-44 Blood monocytes/100 leukocytes 5 % 0-12 Automated blood eosinophils/100 leukocytes 0 % 0-10 Automated blood basophils/100 leukocytes 0 % 0-10 Blood neutrophils automated count (number/volume) 13.4 10*3 1.8-7.8 Blood lymphocytes automated count (number/volume) 0.9 10*3 1.0-4.0 Blood monocytes automated count (number/volume) 0. 7 10*3 0.0-1.0 Automated eosinophil count 0.0 10*3/uL 0 .0-0.3 Automated blood basophil count (count/volume) 0.0 10*3/uL 0.0-0.1 Comprehensive metabolic panel - 06/03/19 02:14 Serum or plasma sodium measurement (moles/volume) 142 mmol/L 135-145 Serum or plasma potassium measurement (moles/volume) 3.5 mmol/L 3.6-5.0 Serum or plasma chloride measurement (moles/volume) 106 mmol/L 98-107 Carbon dioxide 20 mmol/L 21-32 Serum or plasma anion gap determination (moles/volume) 16 mmol/L 5-14 Serum or plasma urea nitrogen measurement (mass/volume ) 29 mg/dL 7-18 Serum or plasma creatinine measurement (mass/volume) 1.37 mg/dL 0.60-1.30 Serum or plasma urea nitrogen/creatinine mass ratio 21 NRG Serum or plasma creatinine measurement w ith calculation of estimated glomerular filtration rate 39 NRG Serum or plasma glucose measurement (mass/volume) 141 mg/dL 70-105 Serum or plasma calcium measurement (mass/volume) 9.7 mg/dL 8.5-10.1 Serum or plasma total bilirubin measurement (mass/volu me) 1.2 mg/dL 0.1-1.0 Serum or plasma alkaline phosphatase heide surement (enzymatic activity/volume) 89 U/L 40-136 Serum or plasma aspartate aminotransfera se measurement (enzymatic activity/volume) 42 U/L 5-34 Serum or plasma alanine aminotransferase measurement (enzymatic activity/volume) 30 U/L 0-55 Serum or plasma protein measurement (mass/volume) 7.6 g/dL 6.4-8.2 Serum or plasma albumin measurement (mass/volume) 4.4 g/dL 3.2-4.5 CALCIUM CORRECTED 9.4 mg/dL 8.5-10.1 Serum or plasma phosphate measurement (m ass/volume) - 06/03/19 02:14 Serum or plasma phosphate measurement (mass/volume) 3.9 mg/dL 2.3-4.7 Magnesium - 06/03/19 02:14 Magnesium 2.2 mg/dL 1.6-2.4 Manual absolute plasma cell count - 05/19 07/07 02:14 Blood monocytes/100 leukocytes 5 % NRG Manual blood segmented neutrophils/100 leukocytes 83 % NRG Blood band neutrophils/100 leukocytes 7 % NRG Manual blood lymphocytes/100 leukocytes 5 % NRG Blood erythrocyte morphology finding identification NORMAL NRG Serum or plasma troponin i.cardiac measu rement (mass/volume) - 06/03/19 02:14 Serum or plasma troponin i.cardiac measurement (mass/v olume) 2.311 ng/mL <0.028 Lipid 1996 panel - 06/03/19 02:14 Serum or plasma triglyceride measurement (mass/volume) 76 mg/dL <150 Serum or plasma cholesterol measurement (mass/volume) 215 mg/dL < 200 Serum or plasma cholesterol in HDL measurement (mass/v olume) 55 mg/dL 40-60 Cholesterol in LDL [mass/volume] in serum or plasma by direct assay 168 mg/dL 1-129 Serum or plasma cholesterol in VLDL measurement (mass/ volume) 15 mg/dL 5-40 Complete blood count (CBC) with automate d white blood cell (WBC) differential - 06/04/19 03:08 Blood leukocytes automated count (number/volume) 12.1 10*3/uL 4.3-11.0 Blood erythrocytes automated count (number/volume) 5.22 10*6/uL 4.35-5.85 Venous blood hemoglobin measurement (mass/volume) 14.2 g/dL 11.5-16.0 Blood hematocrit (volume fraction) 44 % 35-52 Automated erythrocyte mean corpuscular volume 85 [ foz_us] 80-99 Automated erythrocyte mean corpuscular h emoglobin (mass per erythrocyte) 27 pg 25-34 Automated erythrocyte mean corpuscular h emoglobin concentration measurement (mass/volume) 32 g/dL 32-36 Automated erythrocyte distribution width ratio 15. 4 % 10.0- 14.5 Automated blood platelet count (count/volume) 159 10*3/uL 130-400 Automated blood platelet mean volume measurement 10.3 [foz_us] 7.4-10.4 Automated blood neutrophils/100 leukocytes 72 % 42-75 Automated blood lymphocytes/100 leukocytes 17 % 12-44 Blood monocytes/100 leukocytes 10 % 0-12 Automated blood eosinophils/100 leukocytes 1 % 0-10 Automated blood basophils/100 leukocytes 0 % 0-10 Blood neutrophils automated count (number/volume) 8.7 10*3 1.8-7.8 Blood lymphocytes automated count (number/volume) 2.0 10*3 1.0-4.0 Blood monocytes automated count (number/volume) 1. 3 10*3 0.0-1.0 Automated eosinophil count 0.1 10*3/uL 0 .0-0.3 Automated blood basophil count (count/volume) 0.0 10*3/uL 0.0-0.1 Whole blood basic metabolic panel - 05/19 08/07 03:08 Serum or plasma sodium measurement (moles/volume) 141 mmol/L 135-145 Serum or plasma potassium measurement (moles/volume) 3.9 mmol/L 3.6-5.0 Serum or plasma chloride measurement (moles/volume) 107 mmol/L 98-107 Carbon dioxide 23 mmol/L 21-32 Serum or plasma anion gap determination (moles/volume) 11 mmol/L 5-14 Serum or plasma urea nitrogen measurement (mass/volume ) 24 mg/dL 7-18 Serum or plasma creatinine measurement (mass/volume) 1.42 mg/dL 0.60-1.30 Serum or plasma urea nitrogen/creatinine mass ratio 17 NRG Serum or plasma creatinine measurement w ith calculation of estimated glomerular filtration rate 37 NRG Serum or plasma glucose measurement (mass/volume) 91 mg/dL 70-105 Serum or plasma calcium measurement (mass/volume) 8.8 mg/dL 8.5-10.1 Serum or plasma phosphate measurement (m ass/volume) - 06/04/19 03:08 Serum or plasma phosphate measurement (mass/volume) 3.0 mg/dL 2.3-4.7 Magnesium - 06/04/19 03:08 Magnesium 2.1 mg/dL 1.6-2.4 Encounters ACCT No. Visit Date/Time Discharge Status Pt. Type Provider Facility Loc./Unit Complaint [id number] 08/12/2019 12:00:00 08/12/2019 23:59: 59 [facility] Outpatient [facility]A [facility] [id number] 06/02/2019 21:55:00 020 16:00:00 DIS Inpatient HEBER REED DO, V [facility] ICU HIGH BP,WEAKNESS [id number] 12/31/2018 16:10:00 019 19:01:00 DIS Emergency REDDY, PETER J LAND TITLE EXAMINER Via [facility] ER VOMITING,CONFUSION
[2019-08-19] MEDS ORDERED: OXYMETAZOLINE (AFRIN) 0.05% NA 30 ML BTL SCH (21:00)
== END 2019-08-19 17:51 | disposition home or self-care (01) ==
LOC: EDUNIT# 14:15 → ER 14:21
DX: R04.0 Epistaxis (principal); Z79.01 Long term (current) use of anticoagulants; I48.91 Unspecified atrial fibrillation; I10 Essential (primary) hypertension; I25.2 Old myocardial infarction; Z86.73 Personal history of transient ischemic attack (TIA), and cerebral infarction without residual deficits; Z79.899 Other long term (current) drug therapy
CPT/HCPCS: 99282

== ENCOUNTER 2019-08-20 10:09 | Emergency (ER) | payer MEDICARE, MEDICAID ==
[~2019-08-20] VITALS: Ht 162.5 cm; Wt 83.0 kg
--- OUTSIDE RECORDS SUMMARY | 2019-08-20 10:37 | XMS REPORT | Continuity of Care Document ---
Author Organization Unknown Address Unknown Phone Unavailable Allergies Active Description Code Type Severity Reaction Onset Reported/Identified Relationship to Patient Clinical Status Yes No Known Drug Allergies [id number] Drug Allergy Unknown N/A 12/31/2018 Medications There is no data. Problems Date Dx Coded Attending Type Code Diagnosis Diagnosed By 12/31/2018 GUY REDDY APRN Ot I61 .8 OTHER NONTRAUMATIC INTRACEREBRAL HEMORRH 12/31/2018 GUY REDDY BUSINESS ENTERPRISE OFFICER Ot R11.10 VOMITING, UNSPECIFIED 01/02/2019 GUY REDDY BUSINESS ENTERPRISE OFFICER Ot I61 .8 OTHER NONTRAUMATIC INTRACEREBRAL HEMORRH 01/02/2019 GUY REDDY BUSINESS ENTERPRISE OFFICER Ot R11.10 VOMITING, UNSPECIFIED 06/04/2019 REED DO, HEBER Ot B96.20 UNSP ESCHERICHIA COLI THE CAUSE OF DI 06/04/2019 REED DO, HEBER Ot E66.9 OBESITY, UNSPECIFIED 06/04/2019 REED DO, HEBER Ot E87.6 HYPOKALEMIA 06/04/2019 REED DO, HEBER Ot F41.9 ANXIETY DISORDER, UNSPECIFIED 06/04/2019 REED DO, HEBER Ot I13.0 HYP HRT CHR KDNY DIS W HRT FAIL AND ST 06/04/2019 REED DO, HEBER Ot I16.1 HYPERTENSIVE EMERGENCY 06/04/2019 REED DO, EHBER Ot I21.A1 MYOCARDIAL INFARCTION TYPE 2 06/04/2019 REED DO, HEBER Ot I25.10 ATHSCL HEART DISEASE OF [place] CORONARY 06/04/2019 REED DO, HEBER Ot I25.2 [...] ADULT 06/04/2019 GREG REED DOI Ot 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 Procedures Code Description Performed By Per berenice On [id number] [place] ASURE OF CARDIAC SAMPL PRESSURE, L H 06/03/2019 [id number] FL UOROSCOPY OF MULT COR ART USING L OSM 06/03/2019 [id number] FL UOROSCOPY OF LEFT HEART USING LOW [...] culture - 06/02/19 22:00 Bacterial urine culture [id number] NRG COLONY COUNT >100,000/ML NRG FTX;REPORTABLE RML CONFIRMED ID 06/02 17:05 NRG SUSCEPTIBILITY SUSCEPTIBILITY REPORTED 06/04/19 10: 05 NRG RAPID ID PRELIM RAPID ID TEST AT [facility] 06/02 08:00 NRG ID CONFIRMATION GRAM NEG KEVIN REPORTED BY [facility] 06/02 15:06 NRG Dirithromycin susceptibility test by [...] Status Pt. Type Provider Facility Loc./Unit Complaint [id number] 08/12/2019 12:00:00 08/12/2019 23:59: 59 [id number] 08/19/2019 14:21:00 17:51:00 DIS Emergency MINDY GALLEGOS DO Via [facility] ER NOSE BLEED [id number] 06/02/2019 21:55:00 16:00:00 DIS Inpatient HEBER REED DO, V ia [facility] ICU HIGH BP,WEAKNESS [id number] 12/31/2018 16:10:00 019 19:01:00 DIS Emergency GUY REDDY APRN [facility] ER VOMITING,CONFUSION [id number] 08/20/2019 10:10:[address] Emergency PEARL LEYVA MD [facility] ER NASAL PLUG REMOVAL
[2019-08-20] MEDS ORDERED: OXYMETAZOLINE (AFRIN) 0.05% NA 30 ML BTL ONE (10:43)
--- NOTE | 2019-08-20 10:43 | ED General ---
General Chief Complaint: General Problems/Pain Stated Complaint: NASAL PLUG REMOVAL Nursing Triage Note: PT AMB TO [facility] 6 TO HAVE NASAL PACKING REMOVED. WAS SEEN HERE YESTERDAY. Nursing Sepsis Screen: No Definite Risk Source of Information: Patient Exam Limitations: No Limitations History of Present Illness Date Seen by Provider: Aug 20, 2019 Time Seen by Provider: 10:43 Initial Comments To ER with reports that she had a nosebleed yesterday, was seen here and had a Rhino Rocket placed, would like it removed today. No nosebleeds since. No blood down the back of her throat that she has noticed. She is on Eliquis. Timing/Duration: 24 Hours Associated Systoms: Denies Symptoms Allergies and Home Medications Allergies Coded Allergies: No Known Drug Allergies (Unverified , 12/31/18) Home Medications Amlodipine Besylate 10 Mg Tablet, 10 MG PO DAILY Prescribed by: AMY NIELSEN on 06/04/19 1306 Cefdinir 300 Mg Capsule, 300 MG PO BID Prescribed by: AMY NIELSEN on 06/04/19 1306 Lisinopril 10 Mg Tablet, 10 MG PO DAILY Prescribed by: AMY NIELSEN on 06/04/19 1306 Metoprolol Succinate 100 Mg Tab.er.24h, 100 MG PO DAILY Prescribed by: AMY NIELSEN on 06/04/19 1306 Rivaroxaban 20 Mg Tablet, 20 MG PO DAILY, (Reported) Patient Home Medication List Home Medication List Reviewed: Yes Review of Systems Review of Systems Constitutional: see HPI EENTM: see HPI Respiratory: no symptoms reported Cardiovascular: no symptoms reported Genitourinary: no symptoms reported Musculoskeletal: no symptoms reported Psychiatric/Neurological: No Symptoms Reported Past Sicwtfp-Yanwuj-Umxswg Hx Patient Social History Alcohol Use: Denies Use Recreational Drug Use: No Smoking Status: Never a Smoker 2nd Hand Smoke Exposure: No Recent Foreign Travel: No Contact w/Someone Who Travel: No Recent Infectious Disease Expo: No Recent Hopitalizations: No Immunizations Up To Date Tetanus Booster (TDap): Unknown PED Vaccines UTD: No Date of Influenza Vaccine: Nov 18, 2018 Seasonal Allergies Seasonal Allergies: No Past Medical History Surgeries: Yes Hysterectomy, Oophorectomy, Tonsillectomy Respiratory: No Currently Using CPAP: No Currently Using BIPAP: No Cardiac: Yes Atrial Fibrillation, Heart Attack, Hypertension Neurological: Yes (CVA 2018) Stroke Genitourinary: No Gastrointestinal: No Musculoskeletal: No Endocrine: No HEENT: No Cancer: No Psychosocial: No Integumentary: No Blood Disorders: No Adverse Reaction/Blood Tranf: No Family Medical History Cardiovascular disease 19 FATHER, , Onset:60 years & older 19 MOTHER, , Onset:60 years & older FH: thyroid cancer G8 SISTER, Onset:50's - 60 Physical Exam Vital Signs Vital Signs - First Documented 08/20/19 10:20 Temp 36.5 Pulse 61 Resp 20 B/P (MAP) 196/116 (142) Pulse Ox 97 O2 Delivery Room Air Capillary Refill : Less Than 3 Seconds Height, Weight, BMI Height: '" Weight: lbs. oz. kg; 31.00 BMI Method: General Appearance: No Apparent Distress, WD/WN, Other (pretty hypertensive on arrival at 196/116.) Eyes: Bilateral Eye Normal Inspection, Bilateral Eye PERRL HEENT: PERRL/EOMI, TMs Normal, Other (the anterior Rhino Rocket was removed from the left nostril and there was some oozing of blood which persisted for a few minutes before resolving on its own. Afrin and TX A was applied topically to the left nostril, no packing was done. We gave clonidine to help reduce blood pressure and will observe her.) Respiratory: No Accessory Muscle Use, No Respiratory Distress Cardiovascular: Regular Rate, Rhythm, Normal Peripheral Pulses Gastrointestinal: Normal Bowel Sounds, Non Tender, Soft Extremity: Normal Capillary Refill, Normal Inspection Neurologic/Psychiatric: Alert, Oriented x3 Skin: Normal Color, Warm/Dry Progress/Results/Core Measures Suspected Sepsis Recent Fever Within 48 Hours: No Infection Criteria Present: None New/Unexplained Altered Menta: No Sepsis Screen: No Definite Risk SIRS Temperature: Pulse: 61 Respiratory Rate: 20 Blood Pressure 196 /116 Mean: 142 Results/Orders My Orders Medications Given in ED Vital Signs/I&O Capillary Refill : Less Than 3 Seconds Blood Pressure Mean: 142 Departure Communication (Admissions) 1134-blood pressure is down to 158/118. On arrival was 196/116 and has consistently fallen on the systolic side but the diastolic side has remained relatively constant. Still no bleeding from the left nostril. I'll send her home with a nose clamp and have her return if she has any recurrent bleeding. Impression Primary Impression: Epistaxis Additional Impression: High blood pressure Disposition: 01 HOME, SELF-CARE Condition: Improved Departure-Patient Inst. Decision time for Depature: 11:35 Referrals: NO,LOCAL PHYSICIAN (PCP/Family) Primary Care Physician Patient Instructions: High Blood Pressure (DC), Nosebleeds (DC) Add. Discharge Instructions: 1. Return to ER for any recurrent nosebleed. All your doctor today to make an appointment to be seen tomorrow if possible. All discharge instructions reviewed with patient and/or family. Voiced understanding. GUY REDDY NETWORK ENGINEER ADMINISTRATOR Aug 20, 2019 10:43
[2019-08-20] MEDS ORDERED: cloNIDine 0.2 MG (CATAPRES) TAB PO ONE (10:45)
[2019-08-20] MEDS ORDERED: TRANEXAMIC ACID 100 MG/ML 10 ML INJECTION IV ONE (10:45)
[2019-08-20 11:40] VITALS: BP 157/118
[2019-08-20] MEDS ORDERED: OXYMETAZOLINE (AFRIN) 0.05% NA 30 ML BTL SCH (21:00)
== END 2019-08-20 11:42 | disposition home or self-care (01) ==
LOC: EDUNIT# 10:09 → ER 10:10
DX: Z09 Encounter for follow-up examination after completed treatment for conditions other than malignant neoplasm (principal); R04.0 Epistaxis; I10 Essential (primary) hypertension; I48.91 Unspecified atrial fibrillation; I25.2 Old myocardial infarction; Z86.73 Personal history of transient ischemic attack (TIA), and cerebral infarction without residual deficits; Z79.01 Long term (current) use of anticoagulants; Z79.899 Other long term (current) drug therapy
CPT/HCPCS: 99283

== ENCOUNTER 2019-08-20 13:29 | Emergency (ER) | payer MEDICARE, MEDICAID ==
[~2019-08-20] VITALS: Ht 162.6 cm; Wt 83.0 kg
--- NOTE | 2019-08-20 13:48 | ED General ---
General Stated Complaint: WEAKNESS Source of Information: Patient Exam Limitations: No Limitations History of Present Illness Date Seen by Provider: Aug 20, 2019 Time Seen by Provider: 13:46 Initial Comments To ER with reports of general weakness rather sudden in onset. She was seen here yesterday for nosebleed, came back today for packing removal which was done. She had a brief episode of minor oozing of blood which resolved with application of topical TXa/Afrin. She is from [facility], her sister was driving her home after that ER visit. There is no air conditioning in the car and temperatures are upwards of 95. She arrives to ER sweaty, nauseous, generally weak feeling that began just a few minutes ago while in the car.She follows with Minerva Cho from [facility]. Timing/Duration: 1/2 Hour Severity: Moderate Associated Systoms: Malaise, Nausea/Vomiting Allergies and Home Medications Allergies Coded Allergies: No Known Drug Allergies (Unverified , 12/31/18) Home Medications Amlodipine Besylate 10 Mg Tablet, 10 MG PO DAILY Prescribed by: AMY NIELSEN on 06/04/19 1306 Cefdinir 300 Mg Capsule, 300 MG PO BID Prescribed by: AMY NIELSEN on 06/04/19 1306 Lisinopril 10 Mg Tablet, 10 MG PO DAILY Prescribed by: AMY NIELSEN on 06/04/19 1306 Metoprolol Succinate 100 Mg Tab.er.24h, 100 MG PO DAILY Prescribed by: AMY NIELSEN on 06/04/19 1306 Rivaroxaban 20 Mg Tablet, 20 MG PO DAILY, (Reported) Patient Home Medication List Home Medication List Reviewed: Yes Review of Systems Review of Systems Constitutional: see HPI EENTM: see HPI Respiratory: no symptoms reported Cardiovascular: no symptoms reported Genitourinary: no symptoms reported Musculoskeletal: no symptoms reported Skin: no symptoms reported Psychiatric/Neurological: No Symptoms Reported Hematologic/Lymphatic: No Symptoms Reported Immunological/Allergic: no symptoms reported Past Ekixiyr-Melatd-Jrtvpt Hx Patient Social History 2nd Hand Smoke Exposure: No Recent Foreign Travel: No Contact w/Someone Who Travel: No Recent Hopitalizations: No Immunizations Up To Date Tetanus Booster (TDap): Unknown PED Vaccines UTD: No Date of Influenza Vaccine: Nov 18, 2018 Seasonal Allergies Seasonal Allergies: No Past Medical History Surgeries: Yes Hysterectomy, Oophorectomy, Tonsillectomy Respiratory: No Currently Using CPAP: No Currently Using BIPAP: No Cardiac: Yes Atrial Fibrillation, Heart Attack, Hypertension Neurological: Yes (CVA 2019) Stroke Genitourinary: No Gastrointestinal: No Musculoskeletal: No Endocrine: No HEENT: No Cancer: No Psychosocial: No Integumentary: No Blood Disorders: No Adverse Reaction/Blood Tranf: No Family Medical History Cardiovascular disease 19 FATHER, , Onset:60 years & older 19 MOTHER, , Onset:60 years & older FH: thyroid cancer G8 SISTER, Onset:50's - 60 Physical Exam Vital Signs Vital Signs - First Documented 08/20/19 13:45 Temp 36.1 Pulse 61 Resp 20 B/P (MAP) 101/74 (83) Pulse Ox 97 O2 Delivery Room Air Capillary Refill : Height, Weight, BMI Height: '" Weight: lbs. oz. kg; 31.00 BMI Method: General Appearance: No Apparent Distress, WD/WN, Other (alert and oriented, diaphoretic; show blood pressure 101 over 50s with heart rate of 50 A. fib (which is known). Got to a low heart rate 45 A. fib, blood pressure 78/40. She did receive 0.2 mg of clonidine during her first visit this morning for a blood pressure of 196/116. 1 L normal saline infusing now.) Eyes: Bilateral Eye Normal Inspection, Bilateral Eye PERRL, Bilateral Eye EOMI HEENT: PERRL/EOMI, TMs Normal, Other (still no bleeding from the left nostril) Neck: Full Range of Motion, Normal Inspection Respiratory: No Accessory Muscle Use, No Respiratory Distress Gastrointestinal: Non Tender, Soft Extremity: Normal Capillary Refill, Normal Inspection Neurologic/Psychiatric: Alert, Oriented x3 Skin: Normal Color, Warm/Dry Procedures/Interventions Lumen: triple Central Line Procedure: betadine prep, sterile drapes applied, sterile dressing applied Position: internal jugular (R) Volume Anesthetic (ccs): 5 Complications: none Tented central line placement 1 attempt, unsuccessful at getting the wire to thread. Rather than proceeding with additional attempts, during this her blood pressure came up to systolic with a map in the 80s. Decided to cease further attempts at central line placement Progress/Results/Core Measures Suspected Sepsis SIRS Temperature: Pulse: Respiratory Rate: Laboratory Tests 08/20/19 13:50: White Blood Count 11.3H Blood Pressure / Mean: Laboratory Tests 08/20/19 13:50: Creatinine 1.51H, Platelet Count 275, Total Bilirubin 0.7 Results/Orders Lab Results Laboratory Tests Test 08/20/19 13:50 Range/Units White Blood Count 11.3 H 4.3-11.0 10^3/uL Red Blood Count 5.40 4.35-5.85 10^6/uL Hemoglobin 14.8 11.5-16.0 G/DL Hematocrit 45 35-52 % Mean Corpuscular Volume 84 80-99 FL Mean Corpuscular Hemoglobin 27 25-34 PG Mean Corpuscular Hemoglobin Concent 33 32-36 G/DL Red Cell Distribution Width 15.4 H 10.0-14.5 % Platelet Count 275 130-400 10^3/uL Mean Platelet Volume 10.0 7.4-10.4 FL Neutrophils (%) (Auto) 66 42-75 % Lymphocytes (%) (Auto) 23 12-44 % Monocytes (%) (Auto) 8 0-12 % Eosinophils (%) (Auto) 2 0-10 % Basophils (%) (Auto) 0 0-10 % Neutrophils # (Auto) 7.5 1.8-7.8 X 10^3 Lymphocytes # (Auto) 2.6 1.0-4.0 X 10^3 Monocytes # (Auto) 0.9 0.0-1.0 X 10^3 Eosinophils # (Auto) 0.3 0.0-0.3 10^3/uL Basophils # (Auto) 0.0 0.0-0.1 10^3/uL Sodium Level 141 135-145 MMOL/L Potassium Level 4.2 3.6-5.0 MMOL/L Chloride Level 105 98-107 MMOL/L Carbon Dioxide Level 25 21-32 MMOL/L Anion Gap 11 5-14 MMOL/L Blood Urea Nitrogen 24 H 7-18 MG/DL Creatinine 1.51 H 0.60-1.30 MG/DL Estimat Glomerular Filtration Rate 35 BUN/Creatinine Ratio 16 Glucose Level 167 H 70-105 MG/DL Calcium Level 9.5 8.5-10.1 MG/DL Corrected Calcium 9.3 8.5-10.1 MG/DL Magnesium Level 2.2 1.6-2.4 MG/DL Total Bilirubin 0.7 0.1-1.0 MG/DL Aspartate Amino Transf (AST/SGOT) 14 5-34 U/L Alanine Aminotransferase (ALT/SGPT) 10 0-55 U/L Alkaline Phosphatase 70 40-136 U/L Troponin I < 0.028 <0.028 NG/ML Total Protein 7.4 6.4-8.2 GM/DL Albumin 4.2 3.2-4.5 GM/DL My Orders Orders - GUY REDDY APRN Cbc With Automated Diff (08/20/19 13:36) Comprehensive Metabolic Panel (08/20/19 13:36) Ua Culture If Indicated (08/20/19 13:36) Ns Iv 1000 Ml (Sodium Chloride 0.9%) (08/20/19 14:02) Ekg Tracing (08/20/19 14:12) Magnesium (08/20/19 14:17) Troponin I (08/20/19 14:18) Ns Iv 1000 Ml (Sodium Chloride 0.9%) (08/20/19 14:00) Chest 1 View, Ap/Pa Only (08/20/19 16:00) Ns Iv 1000 Ml (Sodium Chloride 0.9%) (08/20/19 16:30) Medications Given in ED Vital Signs/I&O 08/20/19 13:45 Temp 36.1 Pulse 61 Resp 20 B/P (MAP) 101/74 (83) Pulse Ox 97 O2 Delivery Room Air Capillary Refill : Diagnostic Imaging Diagonstic Imaging: Xray Comments NAME: SHAUN BALTAZAR [employer] REC#: [id number] PT STATUS: REG ER : 1955 PHYSICIAN: GUY REDDY APRN ADMIT DATE: 08/20/19/ER Signed Date of Exam:08/20/19 CHEST 1 VIEW, AP/PA ONLY INDICATION: Weak, lightheaded, nausea. TECHNIQUE: Single-view chest 04:26 p.m. CORRELATION STUDY: 06/04/2019. FINDINGS: Heart size is enlarged. Vasculature is overall stable. Lung ramirez are generally clear. No infiltrate, effusion and/or pneumothorax. The previously noted left pleural effusion has essentially resolved. IMPRESSION: 1. Cardiac enlargement. Borderline vasculature but without overt failure. Dictated by: Dictated on workstation # [id number] Dict: 08/20/19 1629 Trans: 08/20/19 1635 [id number] [id number] Interpreted by: RICHARD GUTIERREZ DO Electronically signed by: RICHARD GUTIERREZ DO 08/20/19 1635 Departure Communication (Admissions) 1532-On ICU diversion here, as are the closest hospitals [facility] and [facility]. After 1 L IV fluids her blood pressure is still 82 over 40s, map 66. Heart rate 60s atrial fibrillation. Mentating well, answers questions appropriately. Spoke with Dr. thompson from [facility] in [place] where the patient was actually at in December 2018 for intraparenchymal hemorrhage. We will transfer her back there. Awaiting bed assignment. Impression Primary Impression: Hypotension Additional Impressions: Heat exhaustion Qualified Codes: T67.5XXA - Heat exhaustion, unspecified, initial encounter Bradycardia Disposition: XF SHT-TRM HOSP Condition: Stable Departure-Patient Inst. Referrals: NO,LOCAL PHYSICIAN (PCP/Family) Primary Care Physician GUY REDDY [employer]IC[employer] Aug 20, 2019 13:48
[2019-08-20 13:58] LABS: BASOPHILS % (AUTO) 0 % (0-10); EOSINOPHILS # (AUTO) 0.3 10^3/uL (0.0-0.3); EOSINOPHILS % (AUTO) 2 % (0-10); HEMATOCRIT 45 % (35-52); HEMOGLOBIN 14.8 G/DL (11.5-16.0); LYMPHOCYTES # (AUTO) 2.6 X 10^3 (1.0-4.0); LYMPHOCYTES % (AUTO) 23 % (12-44); MEAN CORPUSCULAR HEMOGLOBIN 27 PG (25-34); MEAN CORPUSCULAR HGB CONC 33 G/DL (32-36); MEAN CORPUSCULAR VOLUME 84 FL (80-99); MONOCYTES # (AUTO) 0.9 X 10^3 (0.0-1.0); MONOCYTES % (AUTO) 8 % (0-12); NEUTROPHILS # (AUTO) 7.5 X 10^3 (1.8-7.8); NEUTROPHILS % (AUTO) 66 % (42-75); PLATELET COUNT 275 10^3/uL (130-400); RED CELL DISTRIBUTION WIDTH 15.4 % (10.0-14.5); WHITE BLOOD COUNT 11.3 10^3/uL (4.3-11.0)
[2019-08-20] MEDS ORDERED: NS IV 1000 ML 1,000 ML IV SCH ×2 (14:00→16:30)
[2019-08-20] MEDS ORDERED: NS IV 1000 ML 1,000 ML ONE (14:02)
--- OUTSIDE RECORDS SUMMARY | 2019-08-20 14:03 | XMS REPORT | Continuity of Care Document ---
Author Organization Unknown Address Unknown Phone Unavailable Allergies Active Description Code Type Severity Reaction Onset Reported/Identified Relationship to Patient Clinical Status Yes No Known Drug Allergies [id number] Drug Allergy Unknown N/A 12/31/2018 Medications There is no data. 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..] - 06/04/19 03:08 Magnesium 2.1 mg/dL 1.6-2.4 Complete blood count (CBC) with automate d white blood cell (WBC) differential - 08/20/19 13:50 Blood leukocytes automated count (number/volume) 11.3 10*3/uL 4.3-11.0 Blood erythrocytes automated count (number/volume) 5.40 10*6/uL 4.35-5.85 Venous blood hemoglobin measurement (mass/volume) 14.8 g/dL 11.5-16.0 Blood hematocrit (volume fraction) 45 % 35-52 Automated erythrocyte mean corpuscular volume 84 [ foz_us] 80-99 Automated erythrocyte mean corpuscular h emoglobin (mass per erythrocyte) 27 pg 25-34 Automated erythrocyte mean corpuscular h emoglobin concentration measurement (mass/volume) 33 g/dL 32-36 Automated erythrocyte distribution width ratio 15. 4 % 10.0- 14.5 Automated blood platelet count (count/volume) 275 10*3/uL 130-400 Automated blood platelet mean volume measurement 10.0 [foz_us] 7.4-10.4 Automated blood neutrophils/100 leukocytes 66 % 42-75 Automated blood lymphocytes/100 leukocytes 23 % 12-44 Blood monocytes/100 leukocytes 8 % 0-12 Automated blood eosinophils/100 leukocytes 2 % 0-10 Automated blood basophils/100 leukocytes 0 % 0-10 Blood neutrophils automated count (number/volume) 7.5 10*3 1.8-7.8 Blood lymphocytes automated count (number/volume) 2.6 10*3 1.0-4.0 Blood monocytes automated count (number/volume) 0. 9 10*3 0.0-1.0 Automated eosinophil count 0.3 10*3/uL 0 .0-0.3 Automated blood basophil count (count/volume) 0.0 10*3/uL 0.0-0.1 Encounters ACCT No. Visit Date/Time Discharge Status Pt. Type Provider Facility Loc./Unit Complaint [id number] 08/12/2019 12:00:00 08/12/2019 23:59: 59 [facility] Outpatient [facility] [id number] 08/20/2019 10:10:00 11:42:00 DIS Emergency GUY REDDY APRN [facility] ER NASAL PLUG REMOVAL [id number] 08/19/2019 14:21:00 17:51:00 DIS Emergency MINDY GALLEGOS DO [facility] ER NOSE BLEED [id number] 06/02/2019 21:55:00 16:00:00 DIS Inpatient HEBER REED DO [facility] ICU HIGH BP,WEAKNESS [id number] 12/31/2018 16:10:00 19:01:00 DIS Emergency GUY REDDY APRN [facility] ER VOMITING,CONFUSION [id number] 08/20/2019 13:31:[address] Emergency GUY REDDY APRN [facility] ER WEAKNESS
[2019-08-20 14:09] LABS: ALBUMIN 4.2 GM/DL (3.2-4.5); POTASSIUM 4.2 MMOL/L (3.6-5.0)
[2019-08-20 14:10] LABS: CALCIUM 9.5 MG/DL (8.5-10.1)
[2019-08-20 14:11] LABS: TOTAL PROTEIN 7.4 GM/DL (6.4-8.2)
[2019-08-20 14:13] LABS: BILIRUBIN,TOTAL 0.7 MG/DL (0.1-1.0)
[2019-08-20 14:15] LABS: CREATININE SERUM 1.51 MG/DL (0.60-1.30)
[2019-08-20 14:33] LABS: MAGNESIUM 2.2 MG/DL (1.6-2.4)
--- NOTE | 2019-08-20 16:35 | Diagnostic Imaging Report ---
INDICATION: Weak, lightheaded, nausea. TECHNIQUE: Single-view chest 04:26 p.m. CORRELATION STUDY: 06/04/2019. FINDINGS: Heart size is enlarged. Vasculature is overall stable. Lung ramirez are generally clear. No infiltrate, effusion and/or pneumothorax. The previously noted left pleural effusion has essentially resolved. IMPRESSION: 1. Cardiac enlargement. Borderline vasculature but without overt failure. Dictated by: Dictated on workstation # [id number]
[2019-08-20] MEDS ORDERED: NS IV 500 ML 500 ML ONE (16:37)
[2019-08-20] MEDS ORDERED: NS IV 500 ML 500 ML IV SCH (16:45)
[2019-08-20 17:28] LABS: CLARITY,URINE SL CLOUDY; COLOR,URINE YELLOW; GLUCOSE, URINE (UA) NEGATIVE (NEGATIVE); KETONES,URINE NEGATIVE (NEGATIVE); LEUKOCYTE ESTERASE ,URINE 1+ (NEGATIVE); NITRITE,URINE NEGATIVE (NEGATIVE); PROTEIN,URINE 2+ (NEGATIVE)
[2019-08-20 17:32] LABS: BILIRUBIN,URINE 1+ (NEGATIVE)
[2019-08-20 17:34] LABS: BACTERIA,URINE FEW /HPF; RBC,URINE RARE /HPF
[2019-08-20 18:40] VITALS: BP 96/59
== END 2019-08-20 18:40 | disposition short-term general hospital (02) ==
LOC: EDUNIT# 13:29 → ER 13:31
DX: I95.9 Hypotension, unspecified (principal); T67.5XXA Heat exhaustion, unspecified, initial encounter; R00.1 Bradycardia, unspecified; I10 Essential (primary) hypertension; I48.91 Unspecified atrial fibrillation; I25.2 Old myocardial infarction; Z86.73 Personal history of transient ischemic attack (TIA), and cerebral infarction without residual deficits; Z82.49 Family history of ischemic heart disease and other diseases of the circulatory system; Z79.01 Long term (current) use of anticoagulants; Z80.8 Family history of malignant neoplasm of other organs or systems
CPT/HCPCS: 36415; 36556; 71045; 80053; 81000; 83735; 84484; 85025; 87088; 93005; 96360; 96361

== ENCOUNTER 2019-10-30 02:55 | Inpatient (IN) | payer MEDICARE, MEDICAID ==
[~2019-10-30] VITALS: Ht 162.6 cm; Wt 89.1 kg
[2019-10-30 03:16] LABS: HEMATOCRIT 45 % (35-52); HEMOGLOBIN 14.5 G/DL (11.5-16.0); MEAN CORPUSCULAR HEMOGLOBIN 28 PG (25-34); MEAN CORPUSCULAR HGB CONC 32 G/DL (32-36); MEAN CORPUSCULAR VOLUME 88 FL (80-99); PLATELET COUNT 192 10^3/uL (130-400); WHITE BLOOD COUNT 9.9 10^3/uL (4.3-11.0)
[2019-10-30] MEDS ORDERED: morphine INJ 10 MG/ML 1ML (SYR OR VIAL) IVP STA ×2 (03:16→05:16)
[2019-10-30 03:17] LABS: BASOPHILS # (AUTO) 0.1 10^3/uL (0.0-0.1); BASOPHILS % (AUTO) 1 % (0-10); EOSINOPHILS % (AUTO) 0 % (0-10); LYMPHOCYTES # (AUTO) 2.4 X 10^3 (1.0-4.0); LYMPHOCYTES % (AUTO) 24 % (12-44); MEAN PLATELET VOLUME 11.1 FL (7.4-10.4); MONOCYTES # (AUTO) 0.7 X 10^3 (0.0-1.0); MONOCYTES % (AUTO) 8 % (0-12); NEUTROPHILS # (AUTO) 6.7 X 10^3 (1.8-7.8); NEUTROPHILS % (AUTO) 68 % (42-75)
--- NOTE | 2019-10-30 03:24 | ED Abdominal Pain ---
General Chief Complaint: Abdominal/GI Problems Stated Complaint: ABD PAIN Nursing Triage Note: Pt complaining of RUQ pain that started early this morning. Pt states she had diarrhea yesterday as well Sepsis Screen: No Definite Risk Source of Information: Patient Exam Limitations: No Limitations History of Present Illness Date Seen by Provider: Oct 30, 2019 Time Seen by Provider: 03:00 Initial Comments The pt is a pleasant 64 y/o female who presents via EMS for evaluation of RUQ abd pain over the last several hours as well as nausea and vomiting. She states that she felt fine yesterday. She reports some loose stools yesterday but not today. She denies fevers or chills, back or flank pain, chest pain or shortness of breath, urinary complaints, dizziness or syncope. She is alert and oriented 4, calm, and appears to be in no distress. Timing/Duration: 1-3 Hours Severity/Quality: Moderate Location: RUQ Radiation: No Radiation Activities at Onset: None Associated Symptoms: Nausea/Vomiting Allergies and Home Medications Allergies Coded Allergies: No Known Drug Allergies (Unverified , 12/31/18) Home Medications Amlodipine Besylate 10 Mg Tablet, 10 MG PO DAILY Prescribed by: AMY NIELSEN on 06/04/19 1306 Cefdinir 300 Mg Capsule, 300 MG PO BID Prescribed by: AMY NIELSEN on 06/04/19 1306 Lisinopril 10 Mg Tablet, 10 MG PO DAILY Prescribed by: AMY NIELSEN on 06/04/19 1306 Metoprolol Succinate 100 Mg Tab.er.24h, 100 MG PO DAILY Prescribed by: AMY NIELSEN on 06/04/19 1306 Rivaroxaban 20 Mg Tablet, 20 MG PO DAILY, (Reported) Patient Home Medication List Home Medication List Reviewed: Yes Review of Systems Review of Systems Constitutional: no symptoms reported EENTM: No Symptoms Reported Respiratory: No Symptoms Reported Cardiovascular: No Symptoms Reported Gastrointestinal: Abdominal Pain, Nausea, Vomiting Genitourinary: No Symptoms Reported Musculoskeletal: no symptoms reported Skin: no symptoms reported Psychiatric/Neurological: No Symptoms Reported Endocrine: No Symptoms Reported Hematologic/Lymphatic: No Symptoms Reported All Other Systems Reviewed Negative Unless Noted: Yes Past Iholqub-Qrnfge-Cydeus Hx Past Med/Social Hx: Reviewed Nursing Past Med/Soc Hx Patient Social History Alcohol Use: Denies Use Recreational Drug Use: No Smoking Status: Never a Smoker 2nd Hand Smoke Exposure: No Recent Foreign Travel: No Contact w/Someone Who Travel: No Recent Infectious Disease Expo: No Recent Hopitalizations: No Physical Abuse: No Sexual Abuse: No Immunizations Up To Date Tetanus Booster (TDap): Unknown PED Vaccines UTD: No Date of Influenza Vaccine: Nov 18, 2018 Seasonal Allergies Seasonal Allergies: No Past Medical History Surgeries: Yes Hysterectomy, Oophorectomy, Tonsillectomy Respiratory: No Currently Using CPAP: No Currently Using BIPAP: No Cardiac: Yes Atrial Fibrillation, Heart Attack, Hypertension Neurological: Yes (CVA 2018) Stroke Genitourinary: No Gastrointestinal: No Musculoskeletal: No Endocrine: No HEENT: No Cancer: No Psychosocial: No Integumentary: No Blood Disorders: No Adverse Reaction/Blood Tranf: No Family Medical History Cardiovascular disease 19 FATHER, , Onset:60 years & older 19 MOTHER, , Onset:60 years & older FH: thyroid cancer G8 SISTER, Onset:50's - 60 Physical Exam Vital Signs Vital Signs - First Documented 10/30/19 02:57 Temp 37.3 Pulse 58 Resp 16 B/P (MAP) 233/134 (167) Pulse Ox 98 O2 Delivery Room Air Capillary Refill : Less Than 3 Seconds Height/Weight/BMI Height: '" Weight: lbs. oz. kg; 35.00 BMI Method: General Appearance: WD/WN, no apparent distress, obese HEENT: PERRL/EOMI, normal ENT inspection, pharynx normal Neck: full range of motion, normal inspection Respiratory: lungs clear, normal breath sounds, no respiratory distress; No no accessory muscle use Cardiovascular: normal peripheral pulses, regular rate, rhythm, no edema, no JVD Gastrointestinal: normal bowel sounds, soft, no pulsatile mass, tenderness (RUQ) Extremities: normal range of motion, non-tender, normal inspection, no pedal edema Back: normal inspection, no CVA tenderness, no vertebral tenderness Neurologic/Psychiatric: funding coordinator II-XII nml as tested, no motor/sensory deficits, alert, normal mood/affect, oriented x 3 Skin: normal color, warm/dry Progress/Results/Core Measures Results/Orders Lab Results Laboratory Tests Test 10/30/19 03:00 10/30/19 04:05 Range/Units White Blood Count 9.9 4.3-11.0 10^3/uL Red Blood Count 5.10 4.35-5.85 10^6/uL Hemoglobin 14.5 11.5-16.0 G/DL Hematocrit 45 35-52 % Mean Corpuscular Volume 88 80-99 FL Mean Corpuscular Hemoglobin 28 25-34 PG Mean Corpuscular Hemoglobin Concent 32 32-36 G/DL Red Cell Distribution Width 13.6 10.0-14.5 % Platelet Count 192 130-400 10^3/uL Mean Platelet Volume 11.1 H 7.4-10.4 FL Neutrophils (%) (Auto) 68 42-75 % Lymphocytes (%) (Auto) 24 12-44 % Monocytes (%) (Auto) 8 0-12 % Eosinophils (%) (Auto) 0 0-10 % Basophils (%) (Auto) 1 0-10 % Neutrophils # (Auto) 6.7 1.8-7.8 X 10^3 Lymphocytes # (Auto) 2.4 1.0-4.0 X 10^3 Monocytes # (Auto) 0.7 0.0-1.0 X 10^3 Eosinophils # (Auto) 0.0 0.0-0.3 10^3/uL Basophils # (Auto) 0.1 0.0-0.1 10^3/uL Sodium Level 140 135-145 MMOL/L Potassium Level 4.8 3.6-5.0 MMOL/L Chloride Level 104 98-107 MMOL/L Carbon Dioxide Level 23 21-32 MMOL/L Anion Gap 13 5-14 MMOL/L Blood Urea Nitrogen 23 H 7-18 MG/DL Creatinine 1.30 0.60-1.30 MG/DL Estimat Glomerular Filtration Rate 41 BUN/Creatinine Ratio 18 Glucose Level 169 H 70-105 MG/DL Calcium Level 9.0 8.5-10.1 MG/DL Corrected Calcium 9.1 8.5-10.1 MG/DL Total Bilirubin 0.4 0.1-1.0 MG/DL Aspartate Amino Transf (AST/SGOT) 31 5-34 U/L Alanine Aminotransferase (ALT/SGPT) 11 0-55 U/L Alkaline Phosphatase 68 40-136 U/L Total Protein 7.0 6.4-8.2 GM/DL Albumin 3.9 3.2-4.5 GM/DL Amylase Level 64 25-125 U/L Lipase 45 8-78 U/L Urine Color STRAW Urine Clarity CLEAR Urine pH 7.0 5-9 Urine Specific Holiday 1.020 1.016-1.022 Urine Protein NEGATIVE NEGATIVE Urine Glucose (UA) TRACE H NEGATIVE Urine Ketones NEGATIVE NEGATIVE Urine Nitrite NEGATIVE NEGATIVE Urine Bilirubin NEGATIVE NEGATIVE Urine Urobilinogen 0.2 < = 1.0 MG/DL Urine Leukocyte Esterase NEGATIVE NEGATIVE Urine RBC (Auto) TRACE-I NEGATIVE Urine RBC 5-10 H /HPF Urine WBC NONE /HPF Urine Squamous Epithelial Cells 2-5 /HPF Urine Crystals NONE /LPF Urine Bacteria NEGATIVE /HPF Urine Casts NONE /LPF Urine Mucus NEGATIVE /LPF Urine Culture Indicated NO My Orders Orders - UMA CLEMENTE DO Comprehensive Metabolic Panel (10/30/19 03:11) Lipase (10/30/19 03:11) Amylase (10/30/19 03:11) Ua Culture If Indicated (10/30/19 03:11) Ed Iv/Invasive Line Start (10/30/19 03:11) Cbc With Automated Diff (10/30/19 03:11) Ct Abdomen/Pelvis W (10/30/19 03:16) Ns Iv 1000 Ml (Sodium Chloride 0.9%) (10/30/19 03:30) Ondansetron Injection (Zofran Injectio (10/30/19 03:30) Morphine Injection (Morphine Injection (10/30/19 03:16) Nothing By Mouth (10/30/19 Breakfast) Iohexol Injection (Omnipaque 350 Mg/Ml 1 (10/30/19 04:00) Received Contrast (Hold Metformin- Contr (10/30/19 04:00) Sodium Chloride Flush (Catheter Flush Sy (10/30/19 04:00) Ns (Ivpb) (Sodium Chloride 0.9% Ivpb Bag (10/30/19 04:00) Ondansetron Injection (Zofran Injectio (10/30/19 05:30) Morphine Injection (Morphine Injection (10/30/19 05:16) Medications Given in ED Current Medications Medications Dose Ordered Sig/Tamara Route Start Time Stop Time Status Last Admin Dose Admin Iohexol 50 ml ONCE ONCE IV 10/30/19 04:00 10/30/19 04:01 DC 10/30/19 04:17 50 ML Ondansetron HCl 4 mg ONCE ONCE IVP 10/30/19 03:30 10/30/19 03:31 DC 10/30/19 03:33 4 MG Ondansetron HCl 4 mg ONCE ONCE IVP 10/30/19 05:30 10/30/19 05:31 10/30/19 05:20 4 MG Sodium Chloride 10 ml NEEDED PRN IV 10/30/19 04:00 10/30/19 04:17 10 ML Sodium Chloride 100 ml ONCE ONCE IV 10/30/19 04:00 10/30/19 04:01 DC 10/30/19 04:17 100 ML Vital Signs/I&O 10/30/19 02:57 Temp 37.3 Pulse 58 Resp 16 B/P (MAP) 233/134 (167) Pulse Ox 98 O2 Delivery Room Air Blood Pressure Mean: 167 Progress Progress Note : Progress Note @0509 - patient updated on lab and imaging results including the finding of a 15 mm stone at the gallbladder neck as well as some mild distention of the gallbladder and mild dilatation of the CBD. The patient is still having some discomfort and nausea. She is agreeable to admission for surgical consult. Dr. Matamoros from general surgery accepts the consultation and states it that the patient to medicine. Dr. Yoon accepts the admission at [facility] Departure Communication (Admissions) Time/Spoke to Admitting Phy: 05:14 Dr. Yoon accepts the patient for admission to a med/surg bed at [facility] Impression Primary Impression: Cholelithiasis Additional Impressions: RUQ abdominal pain Nausea & vomiting Disposition: ADMITTED INPATIENT Condition: Stable Admissions Decision to Admit Reason: Admit from ER (General) Decision to Admit/Date: Oct 30, 2019 Time/Decision to Admit Time: 05:14 Departure-Patient Inst. Referrals: NO,LOCAL PHYSICIAN (PCP/Family) Primary Care Physician UMA CLEMENTE DO Oct 30, 2019 03:23
[2019-10-30] MEDS ORDERED: NS IV 1000 ML 1,000 ML IV SCH (03:30)
[2019-10-30] MEDS ORDERED: ONDANSETRON 4 MG/2 ML (SDV) Z0FRAN IVP ONE ×3 (03:30→11:15)
[2019-10-30 03:37] LABS: ALBUMIN 3.9 GM/DL (3.2-4.5); BILIRUBIN,TOTAL 0.4 MG/DL (0.1-1.0); CREATININE SERUM 1.3 MG/DL (0.60-1.30); POTASSIUM 4.8 MMOL/L (3.6-5.0)
[2019-10-30] MEDS ORDERED: HOLD METFORMIN - RECEIVED CONTRAST 20 ML VIAL IV SCH (04:00)
[2019-10-30] MEDS ORDERED: NS 100 ML (IVPB) BAG IV ONE (04:00)
[2019-10-30] MEDS ORDERED: IOHEXOL 350 MG/ML 100 ML (OMNIPAQUE 350) VIAL IV ONE (04:00)
[2019-10-30] MEDS ORDERED: CATHETER FLUSH 10 ML SYR IV PRN (04:00)
[2019-10-30 04:10] LABS: CLARITY,URINE CLEAR; COLOR,URINE STRAW
[2019-10-30 04:14] LABS: BILIRUBIN,URINE NEGATIVE (NEGATIVE); GLUCOSE, URINE (UA) TRACE (NEGATIVE); KETONES,URINE NEGATIVE (NEGATIVE); LEUKOCYTE ESTERASE ,URINE NEGATIVE (NEGATIVE); NITRITE,URINE NEGATIVE (NEGATIVE); PROTEIN,URINE NEGATIVE (NEGATIVE)
[2019-10-30 04:15] LABS: BACTERIA,URINE NEGATIVE /HPF
[2019-10-30] MEDS ORDERED: hydrALAZINE (APESOLINE) 20 MG/ML VIAL IV ONE (05:45)
--- NOTE | 2019-10-30 07:06 | Diagnostic Imaging Report ---
PROCEDURE: CT abdomen and pelvis with contrast. TECHNIQUE: Multiple contiguous axial images were obtained through the abdomen and pelvis after administration of intravenous contrast. Auto Exposure Controls were utilized during the CT exam to meet ALARA standards for radiation dose reduction. INDICATION: Right upper quadrant abdominal pain. COMPARISON: None FINDINGS: Included portions of the lung bases show small left effusion. There is also moderate cardiomegaly and mild hiatal hernia. CT ABDOMEN: Small bowel loops are nondistended. Normal appendix is identified. There is mild renal atrophy bilaterally. Otherwise, kidneys, adrenal glands, spleen, pancreas, and liver have a normal CT appearance. There is cholelithiasis and slightly thickened appearance of the gallbladder wall. There is no loculated fluid collection, free fluid, no free air within the abdomen. No abnormal mesenteric or retroperitoneal adenopathy is seen. Osseous structures show no acute abnormalities. CT PELVIS: Urinary bladder is grossly unremarkable. There is no loculated fluid collection, free fluid, no free air within the pelvis. No abnormal lymph nodes are seen. Osseous structures show no acute abnormalities. IMPRESSION: 1. Cholelithiasis with slightly thickened appearance the gallbladder wall. Although findings can be seen with acute cholecystitis, gallbladder wall thickening may be artifactual and related to underlying hypoproteinemia, cardiac failure, or liver failure. Clinical correlation is advised. If further evaluation is indicated, right upper quadrant abdominal sonogram is advised. 2. Moderate cardiomegaly and small left effusion. 3. Small hiatal hernia. 4. Mild bilateral renal atrophy. Dictated by: Dictated on workstation # [id number]
--- NOTE | 2019-10-30 08:30 | NUR ---
SHAUN BALTAZAR admitted to room 416-1, with an admitting diagnosis of RUQ pain, on 10/30/19 from [facility] ED via [facility], accompanied by EMS staff. SHAUN BALTAZAR introduced to surroundings, call light, bed controls, phone, TV, temperature control, lights, meal times, smoking policy, visitor policy, side rail policy, bathrooms and showers. Patient Rights given to patient in the handbook. SHAUN BALTAZAR verbalizes understanding that [facility] is not responsible for the loss or damage to any personal effects or valuables that are kept in the patients possession during their hospitalization. The following Patient Care Plans were discussed with the patient: Discharge Planning, pain management, dehydration, and mediations. SHAUN BALTAZAR verbalizes understanding of Interdisciplinary Patient Education. Patient and/or family were informed about the Rapid Response Team and its purpose.
[2019-10-30 09:17] VITALS: BP 195/101
--- NOTE | 2019-10-30 10:42 | Consultation - Surgery ---
History of Present Illness History of Present Illness Patient Consulted On(yris/time) 10/30/19 10:36 Time Seen by Provider: 09:59 History of Present Illness Surgery asked to consult regarding RUQ pain. HPI per ED: The pt is a pleasant 64 y/o female who presents via EMS for evaluation of RUQ abd pain over the last several hours as well as nausea and vomiting. She states that she felt fine yesterday. She reports some loose stools yesterday but not today. She denies fevers or chills, back or flank pain, chest pain or shortness of breath, urinary complaints, dizziness or syncope. She is alert and oriented 4, calm, and appears to be in no distress. Timing/Duration: 1-3 Hours Severity/Quality: Moderate Location: RUQ Radiation: No Radiation Activities at Onset: None Associated Symptoms: Nausea/Vomiting When I spoke to pt she states her pain is much better now, very minimal. Last night in the ER the pain meds were not helping and she was admitted to control pain, start ABX and keep over the weekend to possibly remove gallbladder Saturday. She is not sure she has ever had pain like this before and is unsure if certain foods bring on pain. Her pain this am is 2 out of 10. Allergies and Home Medications Allergies Coded Allergies: No Known Drug Allergies (Unverified , 12/31/18) Home Medications Amlodipine Besylate 10 Mg Tablet, 10 MG PO DAILY Prescribed by: AMY NIELSEN on 06/04/19 1306 Cefdinir 300 Mg Capsule, 300 MG PO BID Prescribed by: AMY NIELSEN on 06/04/19 1306 Lisinopril 10 Mg Tablet, 10 MG PO DAILY Prescribed by: AMY NIELSEN on 06/04/19 1306 Metoprolol Succinate 100 Mg Tab.er.24h, 100 MG PO DAILY Prescribed by: AMY NIELSEN on 06/04/19 1306 Rivaroxaban 20 Mg Tablet, 20 MG PO DAILY, (Reported) Patient Home Medication List Home Medication List Reviewed: Yes Past Coxdabv-Swrktu-Nytcom Hx Patient Social History Alcohol Use: Denies Use Recreational Drug Use: No Smoking Status: Never a Smoker 2nd Hand Smoke Exposure: No Recent Foreign Travel: No Contact w/Someone Who Travel: No Recent Infectious Disease Expo: No Recent Hopitalizations: No Immunizations Up To Date Tetanus Booster (TDap): Unknown PED Vaccines UTD: No Date of Influenza Vaccine: Nov 18, 2018 Seasonal Allergies Seasonal Allergies: No Surgeries History of Surgeries: Yes Surgeries: Hysterectomy, Oophorectomy, Tonsillectomy Respiratory History of Respiratory Disorde: No Cardiovascular History of Cardiac Disorders: Yes Cardiac Disorders: Atrial Fibrillation, Heart Attack, Hypertension Neurological History of Neurological Disord: Yes (CVA 2019) Neurological Disorders: Stroke Genitourinary History of Genitourinary Disor: No Gastrointestinal History of Gastrointestinal Di: No Musculoskeletal History of Musculoskeletal Dis: No Endocrine History of Endocrine Disorders: No HEENT History of HEENT Disorders: No Cancer History of Cancer: No Psychosocial History of Psychiatric Problem: No Integumentary History of Skin or Integumenta: No Blood Transfusions History of Blood Disorders: No Adverse Reaction to a Blood Tr: No Family Medical History Significant Family History: Heart Disease, Cancer Family Medial History: Cardiovascular disease 19 FATHER, , Onset:60 years & older 19 MOTHER, , Onset:60 years & older FH: thyroid cancer G8 SISTER, Onset:50's - 60 Review of Systems-General Constitutional: No chills, No diaphoresis, No dizziness EENTM: No blurred vision, No double vision, No mouth pain, No mouth swelling, No epistaxis Respiratory: No cough, No dyspnea on exertion, No hemoptysis Cardiovascular: No chest pain; palpitations Gastrointestinal: abdominal pain; No jaundice, No nausea, No vomiting Genitourinary: No dysuria, No frequency, No hematuria Musculoskeletal: joint pain, joint swelling, muscle stiffness Skin: No change in color, No change in hair/nails Psychiatric/Neurological: Denies Anxiety, Denies Depressed, Denies Pre-Existing Deficit, Denies Seizure, Denies Tremors Other pt states she bleeds and bruises easily because of the blood thinners she takes Physical Exam-General Problems Physical Exam Vital Signs Vital Signs - First Documented 10/30/19 02:57 Temp 37.3 Pulse 58 Resp 16 B/P (MAP) 233/134 (167) Pulse Ox 98 O2 Delivery Room Air Capillary Refill : Less Than 3 Seconds General Appearance: WD/WN, no apparent distress Eyes: Bilateral Eye PERRL, Bilateral Eye EOMI HEENT: pharynx normal; No scleral icterus (R), No scleral icterus (L); other (poor dentition) Neck: non-tender, supple Respiratory: chest non-tender, lungs clear, normal breath sounds, no respiratory distress, no accessory muscle use Cardiovascular: no murmur, bradycardia, irregularly irregular Gastrointestinal: soft, no organomegaly, no pulsatile mass, tenderness (RUQ with deep palpation) Back: no CVA tenderness, no vertebral tenderness Extremities: non-tender, normal inspection, no pedal edema, no calf tenderness Neurologic/Psychiatric: shore man II-XII nml as tested, no motor/sensory deficits, alert, normal mood/affect, oriented x 3 Skin: normal color, warm/dry Lymphatic: no adenopathy (neck, axilla or groin) Data Review Labs Laboratory Tests 10/30/19 03:00: White Blood Count 9.9, Red Blood Count 5.10, Hemoglobin 14.5, Hematocrit 45, Mean Corpuscular Volume 88, Mean Corpuscular Hemoglobin 28, Mean Corpuscular Hemoglobin Concent 32, Red Cell Distribution Width 13.6, Platelet Count 192, Mean Platelet Volume 11.1H, Neutrophils (%) (Auto) 68, Lymphocytes (%) (Auto) 24, Monocytes (%) (Auto) 8, Eosinophils (%) (Auto) 0, Basophils (%) (Auto) 1, Neutrophils # (Auto) 6.7, Lymphocytes # (Auto) 2.4, Monocytes # (Auto) 0.7, Eosinophils # (Auto) 0.0, Basophils # (Auto) 0.1, Sodium Level 140, Potassium Level 4.8, Chloride Level 104, Carbon Dioxide Level 23, Anion Gap 13, Blood Urea Nitrogen 23H, Creatinine 1.30, Estimat Glomerular Filtration Rate 41, BUN/Creatinine Ratio 18, Glucose Level 169H, Calcium Level 9.0, Corrected Calcium 9.1, Total Bilirubin 0.4, Aspartate Amino Transf (AST/SGOT) 31, Alanine Aminotransferase (ALT/SGPT) 11, Alkaline Phosphatase 68, Total Protein 7.0, Albumin 3.9, Amylase Level 64, Lipase 45 10/30/19 04:05: Urine Color STRAW, Urine Clarity CLEAR, Urine pH 7.0, Urine Specific [employer] 1.020, Urine Protein NEGATIVE, Urine Glucose (UA) TRACEH, Urine Ketones NEGATIVE, Urine Nitrite NEGATIVE, Urine Bilirubin NEGATIVE, Urine Urobilinogen 0.2, Urine Leukocyte Esterase NEGATIVE, Urine RBC (Auto) TRACE-I, Urine RBC 5- 10H, Urine WBC NONE, Urine Squamous Epithelial Cells 2-5, Urine Crystals NONE, Urine Bacteria NEGATIVE, Urine Casts NONE, Urine Mucus NEGATIVE, Urine Culture Indicated NO Radiology Date of Exam:10/30/19 CT ABDOMEN/PELVIS W PROCEDURE: CT abdomen and pelvis with contrast. TECHNIQUE: Multiple contiguous axial images were obtained through the abdomen and pelvis after administration of intravenous contrast. Auto Exposure Controls were utilized during the CT exam to meet ALARA standards for radiation dose reduction. INDICATION: Right upper quadrant abdominal pain. COMPARISON: None FINDINGS: Included portions of the lung bases show small left effusion. There is also moderate cardiomegaly and mild hiatal hernia. CT ABDOMEN: Small bowel loops are nondistended. Normal appendix is identified. There is mild renal atrophy bilaterally. Otherwise, kidneys, adrenal glands, spleen, pancreas, and liver have a normal CT appearance. There is cholelithiasis and slightly thickened appearance of the gallbladder wall. There is no loculated fluid collection, free fluid, no free air within the abdomen. No abnormal mesenteric or retroperitoneal adenopathy is seen. Osseous structures show no acute abnormalities. CT PELVIS: Urinary bladder is grossly unremarkable. There is no loculated fluid collection, free fluid, no free air within the pelvis. No abnormal lymph nodes are seen. Osseous structures show no acute abnormalities. IMPRESSION: 1. Cholelithiasis with slightly thickened appearance the gallbladder wall. Although findings can be seen with acute cholecystitis, gallbladder wall thickening may be artifactual and related to underlying hypoproteinemia, cardiac failure, or liver failure. Clinical correlation is advised. If further evaluation is indicated, right upper quadrant abdominal sonogram is advised. 2. Moderate cardiomegaly and small left effusion. 3. Small hiatal hernia. 4. Mild bilateral renal atrophy. Dictated by: Dictated on workstation # [id number] Dict: 10/30/19 0658 Trans: 10/30/19 0841 [facility] [id number] Interpreted by: LAUREN GARCIA MD Electronically signed by: LAUREN GARCIA MD 10/30/19 0841 Assessment/Plan Assessment/Plan Assessment/Plan Acute Cholecystitis with Cholelithiasis, with Dilated CBD Atrial Fibrillation HTN Pt was having pain not controlled in the ER, but now her pain is minimal and easily controlled with oral meds. We cannot do Laparoscopic Cholecystectomy today because she is on Xarelto. The plan was to keep her in the hospital for pain control and maybe ABX while we let the Xarelto work itself out of her system and do procedure on Saturday. However, because her pain has improved I think it would be fine to send her home and do the surgery as an outpt on Saturday. I discussed the procedure with pt including risks and complications not limited to pain, bleeding, infection, scar, damage to bowel or bile duct and need for further procedure. We also discussed that stopping her Xarelto will put her at risk for possible stroke. She states she is ok stopping the Xarelto and going home, coming back on Saturday for outpt procedure and then starting the Xarelto back up that day. All questions answered to her satisfaction, I will do orders to send her home and have already talked to surgery about adding her to the schedule. TONY GALDAMEZ DO Oct 30, 2019 10:42
--- NOTE | 2019-10-30 10:55 | Discharge Inst-Surgical ---
Discharge Inst-Surgical Depart Medication/Instructions New, Converted or Re-Newed RX: Other (Take Motrin or tylenol for pain) Activity Activity as Tolerated: Yes Driving Instructions: You May Drive Diet Discharge Diet: Avoid Fatty Foods, Low Fat/Low Cholesterol Symptoms to Report to Physicia: Appetite Changes, Numbness/Tingling, Eyesight Changes, Lightheadedness, Memory Changes Suddenly, Dizziness/Fainting, Nausea/Vomiting, Shortness of Breath If Any Problems/Questions/Issu: Go to Emergency Room Skin/Wound Care Bathing Instructions: TONY Betancourt DO Oct 30, 2019 10:55
[2019-10-30] MEDS ORDERED: ASPI-808 PO (10:57)
[2019-10-30] MEDS ORDERED: ONDANSETRON 4 MG/2 ML (SDV) Z0FRAN ONE (11:16)
[2019-10-30 12:00] VITALS: BP 161/87
== END 2019-10-30 13:56 | disposition home or self-care (01) | DRG 446 ==
LOC: EDUNIT# 02:55 → ER FS 02:58 → 4TH 08:33
PROVIDERS: ADMIT Internal Medicine; ATTEND Internal Medicine
DX: K80.00 Calculus of gallbladder with acute cholecystitis without obstruction (principal); K83.8 Other specified diseases of biliary tract; I48.91 Unspecified atrial fibrillation; I10 Essential (primary) hypertension; I25.2 Old myocardial infarction; Z79.01 Long term (current) use of anticoagulants; Z90.710 Acquired absence of both cervix and uterus; Z90.722 Acquired absence of ovaries, bilateral; Z90.89 Acquired absence of other organs
CPT/HCPCS: 36415; 74177; 80053; 81000; 82150; 83690; 85025

== ENCOUNTER 2019-11-02 10:19 | Day surgery (SDC) | payer MEDICARE, MEDICAID ==
[~2019-11-02] VITALS: Ht 162.6 cm; Wt 83.2 kg
[2019-11-02] VITALS (9 sets, daily range): BP systolic 99–176; BP diastolic 59–103
[~2019-11-02 10:19] MED LIST changes: +ASPI-808 PO
[2019-11-02] MEDS ORDERED: GLYCOPYRROLATE 0.2 MG/ML (ROBINUL) 2 ML VIAL ONE ×2 (10:55→13:31)
[2019-11-02] MEDS ORDERED: fentaNYL INJECTION 100 MCG/2 ML AMP ONE (10:55)
[2019-11-02] MEDS ORDERED: ROCURONIUM 10 MG/ML 5 ML SYRINGE IV ONE (10:55)
[2019-11-02] MEDS ORDERED: MIDAZOLAM 2 MG/2 ML (VERSED) VIAL ONE (10:55)
[2019-11-02] MEDS ORDERED: proPOfol 200 MG/20 ML (DIPRIVAN) VIAL IV ONE (10:55)
[2019-11-02] MEDS ORDERED: LIDOCAINE PF 2% 5 ML (XYLOCAINE) VIAL ONE (10:55)
[2019-11-02] MEDS ORDERED: SEVOFLURANE (ULTANE) 15 ML INHAL SOLN ONE ×4 (10:55→14:28)
[2019-11-02] MEDS ORDERED: NEOSTIGMINE 3 MG/3 ML VIAL ONE (10:55)
[2019-11-02] MEDS ORDERED: ONDANSETRON 4 MG/2 ML (SDV) Z0FRAN ONE (10:55)
[2019-11-02] MEDS ORDERED: LISI10TA2 PO (10:56)
[2019-11-02] MEDS ORDERED: RIVA20TA PO (10:59)
[2019-11-02] MEDS ORDERED: LACTATED RINGERS 1,000 ML IV PRN (11:33)
[2019-11-02] MEDS ORDERED: ceFAZolin 2 GM IV Premixed 50 ML ONE (11:53)
[2019-11-02] MEDS ORDERED: MIDAZOLAM 2 MG/2 ML (VERSED) VIAL IV ONE (12:30)
[2019-11-02] MEDS ORDERED: BUP/EPI 0.25% 1:200,000 (MARCAINE) 30 ML VIAL ONE (13:04)
[2019-11-02] MEDS ORDERED: IOPAMIDOL 61% 30 ML (ISOVUE 300) VIAL ONE (13:04)
--- NOTE | 2019-11-02 13:10 | Progress Note-Pre Operative ---
Pre-Operative Progress Note H&P Reviewed The H&P was reviewed, patient examined and no changes noted. Time Seen by Provider: 13:01 Date H&P Reviewed: Nov 02, 2019 Time H&P Reviewed: 13:02 Pre-Operative Diagnosis: Sri/Sri TONY GALDAMEZ DO Nov 02, 2019 13:10
--- NOTE | 2019-11-02 14:08 | Progress Note-Post Operative ---
Post-Operative Progess Note Surgeon (s)/Sales Enablement Specialist (s) Surgeon TONY GALDAMEZ DO Sales Enablement Specialist: NAA Pre-Operative Diagnosis Sri/Sri Post-Operative Diagnosis Same plus hemorrhagic adhesions Procedure & Operative Findings Date of Procedure 11/02/19 Procedure Performed/Findings PROCEDURE: Laparoscopic cholecystectomy with intraoperative cholangiogram. COMPLICATIONS: None. PROCEDURE: The patient was taken to the operating suite and was prepped and draped in sterile fashion. A surgical pause was performed. Just superior to the umbilicus, a 12 mm incision was made. Dissection was taken down to the fascia, which was then scored and grasped with a Rakel and the abdomen was then entered. A 0 Vicryl suture was placed in a [id number] fashion and a Castillo trocar was placed and secured. Pneumoperitoneum was achieved. A 5mm trochar place in the subxyphoid and 2 in the right upper quadrant. The gallbladder was then grasped and elevated. It looked hemorrhagic and there were adhesions noted in the lower abdomen. The cystic duct, and cystic artery were then dissected out. Of note, there was a stone in the neck of the gallbladder; moved out of the way with clip and then clip was placed on the distal portion of the cystic duct which was then partially transected. An arrow catheter was inserted into the duct. The cholangiogram was then performed. No filing defects and contrast made its way into the duodenum. Catheter removed. Clips were placed on proximal portion of the cystic duct and then the duct was then transected. Clips were placed along the proximal and distal portion of the cystic artery which was then transected. Hook cautery was used to dissect the gallbladder from the gallbladder fossa achieving hemostasis. The gallbladder was placed in an Endobag and removed through the 12 mm trocar site. The abdomen was then reinspected. Copious amounts of irrigation were used to irrigate the abdomen and there were no signs of active bleeding. Hemostasis had been achieved. The 12 mm fascial defect was then closed with 0 Vicryl suture that had been placed in a [id number]-[id number] fashion. The abdomen was then desufflated, the trocars were removed. The abdomen was then washed and dried. The skin was then closed using 4-0 Monocryl in a subcuticular fashion. The abdomen was washed and dried and Skin Affix was place over incisions. Patient tolerated the procedure well without any complications and was taken to the recovery room in stable condition. Anesthesia Type GET Estimated Blood Loss Estimated blood loss (mL): scant Specimens/Packing Specimens Removed GB and contents TONY GALDAMEZ DO Nov 02, 2019 14:08
[2019-11-02] MEDS ORDERED: HYDR-4226 PO (14:09)
--- NOTE | 2019-11-02 14:10 | Discharge Inst-Surgical ---
Discharge Inst-Surgical Depart Medication/Instructions New, Converted or Re-Newed RX: RX Given to Pt/Family Patient Instructions Follow up Appt: Make appointment for 1 week. [phone] Instructions: No lifting greater than 20 pounds. No strenuous activity. May shower in 24 hours, no tub bath or soaking. Use incentive spirometer at home as directed. No Smoking Skin/Wound Care: May remove bandages in am. You need to leave the Dermabond on incision it will fall off on it's own. Symptoms to Report: Appetite Changes, Extremity Discoloration, Numbness/Tingling, Swelling Increased, Bleeding Excessive, Eyesight Changes, Pain Increased, Urine Color Change, Constipation(Persistent), Fever over 101 degree F, Pain/Pressure in chest, Urinating Difficulty, Cough Up/Vomit Blood, Heart Beat Irreg/Pounding, Pain/Pressure in jaw, Cramps in feet or legs, Lightheadedness, Pain/Pressure in shoulder, Diarrhea(Persistent), Memory Changes Suddenly, Questions/Concerns, Weight gain consecutive days, Dizziness/Fainting, Nausea/Vomiting, Shortness of Breath, Weight gain over 2 pounds If questions or concerns contact your physician Or seek help at emergency department. Activity Activity as Tolerated: Yes Activity Instructions: Avoid Stress to Incision Driving Instructions: No Driving/Refer to Diet Discharge Diet: Avoid Fatty Foods, Low Fat/Low Cholesterol If Any Problems/Questions/Issu: Contact Your Physician, Go to Emergency Room Skin/Wound Care Infection Signs and Symptoms: Increased Redness, Foul Odor of Wound, Increased Drainage, Skin Itchy or Has a Rash, Increased Swelling, Temperature Above 101 F Wound Care Comment: heating pad to shoulder or neck tonight for pain Bathing Instructions: Shower Stitches/Rosio/Dermabond Dis: Dermabond Ice Pack: Ice On and Off Site (as needed at incisions) TONY GALDAMEZ DO Nov 02, 2019 14:10
[2019-11-02] MEDS ORDERED: hydrALAZINE (APESOLINE) 20 MG/ML VIAL ONE (14:29)
[2019-11-02] MEDS ORDERED: morphine INJ 10 MG/ML 1ML (SYR OR VIAL) IVP ONE (14:30)
[2019-11-02] MEDS ORDERED: HYDROmorphone 2 MG/ML VIAL (DILAUDID) IV ONE (14:30)
[2019-11-02] MEDS ORDERED: ONDANSETRON 4 MG/2 ML (SDV) Z0FRAN IVP PRN (14:30)
--- NOTE | 2019-11-02 14:44 | Anesthesia-General Post-Op ---
General Patient Condition Mental Status/LOC: Same as Preop Cardiovascular: Satisfactory Nausea/Vomiting: Absent Respiratory: Satisfactory Pain: Controlled Complications: Absent Post Op Complications Complications None Follow Up Care/Instructions Patient Instructions None needed. Anesthesia/Patient Condition Patient Condition Patient is doing well, no complaints, stable vital signs, no apparent adverse anesthesia problems. GENE MOROCHO DO Nov 02, 2019 14:44
--- NOTE | 2019-11-02 14:52 | Diagnostic Imaging Report ---
INDICATION: Fluoroscopy for intraoperative cholangiogram. Fluoroscopy was provided in the OR during intraoperative cholangiogram. 22 seconds of fluoroscopic time was utilized. Images demonstrate contrast being injected via the cystic duct remnant. Bile ducts appear to be normal caliber. No filling defect is seen. Contrast flows into the duodenum. IMPRESSION: Fluoroscopy during intraoperative cholangiogram. Dictated by: Dictated on workstation # [id number]
[2019-11-02] MEDS ORDERED: HYDROcodone/APAP 5 MG/325 MG (LORTAB) TAB ONE (15:38)
[2019-11-02] MEDS ORDERED: HYDROcodone/APAP 5 MG/325 MG (LORTAB) TAB PO ONE (15:45)
[2019-11-02] MEDS ORDERED: ceFAZolin 2 GM/50 ML (PRE-MIXED) IV ONE (17:30)
== END 2019-11-02 16:05 | disposition home or self-care (01) ==
LOC: SDC 10:19
PROVIDERS: ATTEND Surgery
DX: K80.10 Calculus of gallbladder with chronic cholecystitis without obstruction (principal); K82.8 Other specified diseases of gallbladder; K66.0 Peritoneal adhesions (postprocedural) (postinfection); Z11.2 Encounter for screening for other bacterial diseases; I10 Essential (primary) hypertension; I48.91 Unspecified atrial fibrillation; I25.2 Old myocardial infarction; Z86.73 Personal history of transient ischemic attack (TIA), and cerebral infarction without residual deficits; Z79.01 Long term (current) use of anticoagulants; Z79.82 Long term (current) use of aspirin; Z79.899 Other long term (current) drug therapy
CPT/HCPCS: 76000; 87081; 88304; 94664

== ENCOUNTER 2019-12-25 11:53 | Inpatient (IN) | payer MEDICARE, MEDICAID ==
[~2019-12-25] VITALS: Ht 157.4 cm; Wt 90.1 kg
[~2019-12-25 11:53] MED LIST changes: +AMLO-251 PO; -AMLO10TA7 PO; +HYDR-4226 PO
--- NOTE | 2019-12-25 12:22 | ED Cardiac General ---
History of Present Illness General Chief Complaint: Cardiac/General Problems Stated Complaint: BP 110/148 Source: patient, RN/MD, RN notes reviewed, old records Exam Limitations: no limitations History of Present Illness Date Seen by Provider: Dec 25, 2019 Time Seen by Provider: 12:10 Initial Comments This patient is a 64-year-old female presents to the emergency department with complaint of uncontrolled hypertension. Patient states for the past 2 days her blood pressures been difficult to control. Patient does take 3 different medications including 20 mg of lisinopril 50 mg of metoprolol and 10 mg of amlodipine for blood pressure control. Patient still having blood pressures around 200/120. Patient denies headache. Patient does have a history of stroke. Patient also takes several toe. Patient has long history of A. fib. We'll do medical evaluation treatment is needed. Timing/Duration: 1-2 days Severity: moderate Activities at Onset: none Associated Systoms: Denies Symptoms; No Chest Pain, No Cough, No Diaphoresis, No Fever/Chills, No Headaches, No Loss of Appetite, No Malaise, No Nausea/Vomiting, No Rash, No Seizure, No Shortness of Air, No Syncope, No Weakness, No Other Allergies and Home Medications Allergies Coded Allergies: No Known Drug Allergies (Unverified , 11/02/19) Home Medications Aspirin 325 Mg Tablet, 325 MG PO DAILY Prescribed by: TONY GALDAMEZ on 10/30/19 1057 Hydrocodone/Acetaminophen 1 Each Tablet, 1 TAB PO Q6H Prescribed by: TONY GALDAMEZ on 11/02/19 1409 Lisinopril 10 Mg Tablet, 10 MG PO DAILY Prescribed by: AMY NIELSEN on 06/04/19 1306 Metoprolol Succinate 100 Mg Tab.er.24h, 100 MG PO DAILY Prescribed by: AMY NIELSEN on 06/04/19 1306 Patient Home Medication List Home Medication List Reviewed: Yes Review of Systems Review of Systems Constitutional: No no symptoms reported; see HPI; No chills, No diaphoresis, No dizziness, No fever, No malaise, No weakness, No weight gain, No weight loss, No other EENTM: No No Symptoms Reported, No See HPI, No Blurred Vision, No Double Vision, No Eye Pain, No Eye Tearing, No Ear Drainage, No Ear Pain, No Mouth Pain, No Mouth Swelling, No Nose Congestion, No Nose Pain, No Throat Pain, No Throat Swelling, No Other Respiratory: Denies No Symptoms Reported, Denies See HPI, Denies Cough, Denies Orthopnea, Denies Shortness of Air, Denies SOA With Exertion, Denies SOA at Rest, Denies Stridor, Denies Wheezing, Denies Other Cardiovascular: Denies No Symptoms Reported, Denies See HPI, Denies Chest Pain, Denies Edema, Denies Irregular Heart Rate, Denies Lightheadedness, Denies Palpitations, Denies Syncope, Denies Other Gastrointestinal: Denies No Symptoms Reported, Denies See HPI, Denies Abdomen Distended, Denies Abdominal Pain, Denies Blood Streaked Stools, Denies Constipated, Denies Diarrhea, Denies Difficulty Swallowing, Denies Nausea, Denies Poor Appetite, Denies Poor Fluid Intake, Denies Rectal Bleeding, Denies Vomiting, Denies Other Genitourinary: Denies No Symptoms Reported, Denies See HPI, Denies Burning, Denies Discharge, Denies Drainage, Denies Frequency, Denies Flank Pain, Denies Hematuria, Denies Incontinence, Denies Pain, Denies Urgency, Denies Other Musculoskeletal: No no symptoms reported, No see HPI, No back pain, No gout, No joint pain, No joint swelling, No muscle pain, No muscle stiffness, No muscle cramps, No muscle twitching, No muscle weakness, No neck pain, No other Skin: No no symptoms reported, No see HPI, No change in color, No change in hair/nails, No dryness, No hx of skin cancer, No lesions, No lumps, No pruritus, No rash, No other All Other Systems Reviewed Negative Unless Noted: Yes Past Edsmvbj-Tbuoys-Lkdcix Hx Patient Social History 2nd Hand Smoke Exposure: No Recent Foreign Travel: No Contact w/Someone Who Travel: No Recent Hopitalizations: No Immunizations Up To Date Tetanus Booster (TDap): Unknown PED Vaccines UTD: No Date of Influenza Vaccine: Nov 18, 2018 Seasonal Allergies Seasonal Allergies: No Past Medical History Surgeries: Yes Hysterectomy, Oophorectomy, Tonsillectomy Respiratory: No Currently Using CPAP: No Currently Using BIPAP: No Cardiac: Yes Atrial Fibrillation, Heart Attack, Hypertension Neurological: Yes (CVA 2019) Stroke Genitourinary: No Gastrointestinal: No Musculoskeletal: No Endocrine: No HEENT: No Cancer: No Psychosocial: No Integumentary: No Blood Disorders: No Adverse Reaction/Blood Tranf: No Family Medical History Cardiovascular disease 19 FATHER, , Onset:60 years & older 19 MOTHER, , Onset:60 years & older FH: thyroid cancer G8 SISTER, Onset:50's - 60 Heart Disease, Cancer Physical Exam Vital Signs Capillary Refill : Height, Weight, BMI Height: '" Weight: lbs. oz. kg; 31.46 BMI Method: General Appearance: No Apparent Distress, WD/WN Respiratory: Chest Non Tender, Lungs Clear, Normal Breath Sounds, No Accessory Muscle Use, No Respiratory Distress Cardiovascular: Regular Rate, Rhythm, No Edema, No Gallop, No JVD, No Murmur, Normal Peripheral Pulses Gastrointestinal: Normal Bowel Sounds, No Organomegaly, No Pulsatile Mass, Non Tender Extremity: Normal Capillary Refill, Normal Inspection, Normal Range of Motion, Non Tender, No Calf Tenderness, No Pedal Edema Neurologic/Psychiatric: Alert, Oriented x3, No Motor/Sensory Deficits, Normal Mood/Affect Skin: Normal Color, Warm/Dry Progress/Results/Core Measures Results/Orders Lab Results Laboratory Tests Test 12/25/19 12:00 12/25/19 12:35 Range/Units Urine Color YELLOW Urine Clarity SL CLOUDY Urine pH 6.0 5-9 Urine Specific [place] 1.020 1.016-1.022 Urine Protein 2+ H NEGATIVE Urine Glucose (UA) NEGATIVE NEGATIVE Urine Ketones NEGATIVE NEGATIVE Urine Nitrite NEGATIVE NEGATIVE Urine Bilirubin NEGATIVE NEGATIVE Urine Urobilinogen 0.2 < = 1.0 MG/DL Urine Leukocyte Esterase 2+ H NEGATIVE Urine RBC (Auto) 1+ H NEGATIVE Urine RBC 2-5 H /HPF Urine WBC 5-10 H /HPF Urine Squamous Epithelial Cells 5-10 /HPF Urine Crystals NONE /LPF Urine Bacteria MODERATE H /HPF Urine Casts NONE /LPF Urine Mucus NEGATIVE /LPF Urine Culture Indicated YES White Blood Count 7.8 4.3-11.0 10^3/uL Red Blood Count 5.22 4.35-5.85 10^6/uL Hemoglobin 14.6 11.5-16.0 G/DL Hematocrit 45 35-52 % Mean Corpuscular Volume 87 80-99 FL Mean Corpuscular Hemoglobin 28 25-34 PG Mean Corpuscular Hemoglobin Concent 32 32-36 G/DL Red Cell Distribution Width 13.8 10.0-14.5 % Platelet Count 192 130-400 10^3/uL Mean Platelet Volume 10.6 H 7.4-10.4 FL Immature Granulocyte % (Auto) 0 % Neutrophils (%) (Auto) 66 42-75 % Lymphocytes (%) (Auto) 25 12-44 % Monocytes (%) (Auto) 9 0-12 % Eosinophils (%) (Auto) 0 0-10 % Basophils (%) (Auto) 1 0-10 % Neutrophils # (Auto) 5.1 1.8-7.8 X 10^3 Lymphocytes # (Auto) 1.9 1.0-4.0 X 10^3 Monocytes # (Auto) 0.7 0.0-1.0 X 10^3 Eosinophils # (Auto) 0.0 0.0-0.3 10^3/uL Basophils # (Auto) 0.1 0.0-0.1 10^3/uL Immature Granulocyte # (Auto) 0.0 0.0-0.1 10^3/uL Prothrombin Time 22.9 H 12.2-14.7 SEC INR Comment 2.0 H 0.8-1.4 Sodium Level 141 135-145 MMOL/L Potassium Level 4.0 3.6-5.0 MMOL/L Chloride Level 106 98-107 MMOL/L Carbon Dioxide Level 25 21-32 MMOL/L Anion Gap 10 5-14 MMOL/L Blood Urea Nitrogen 27 H 7-18 MG/DL Creatinine 1.41 H 0.60-1.30 MG/DL Estimat Glomerular Filtration Rate 37 BUN/Creatinine Ratio 19 Glucose Level 98 70-105 MG/DL Calcium Level 9.5 8.5-10.1 MG/DL Corrected Calcium 9.4 8.5-10.1 MG/DL Total Bilirubin 1.0 0.1-1.0 MG/DL Aspartate Amino Transf (AST/SGOT) 34 5-34 U/L Alanine Aminotransferase (ALT/SGPT) 37 0-55 U/L Alkaline Phosphatase 72 40-136 U/L Troponin I < 0.30 <0.30 NG/ML Pro-B-Type Natriuretic Peptide 70978.0 H <75.0 PG/ML Total Protein 6.5 6.4-8.2 GM/DL Albumin 4.1 3.2-4.5 GM/DL My Orders Orders - RENZO SIMMONS MD Ed Iv/Invasive Line Start (12/25/19 12:00) Cbc With Automated Diff (12/25/19 12:00) Comprehensive Metabolic Panel (12/25/19 12:00) Urinalysis (12/25/19 12:00) Chest 1 View Ap/Pa Only (12/25/19 12:00) Ekg Tracing (12/25/19 12:00) Troponin I Fs (12/25/19 12:22) Probnp Fs (12/25/19 12:22) Protime With Inr (12/25/19 12:22) Urine Culture (12/25/19 12:00) Hydralazine Injection (Apresoline Inject (12/25/19 12:45) Ct Head Wo (12/25/19 12:42) Ns (Ivpb) (Sodium C... W/Nicardipine Iv (12/25/19 14:00) Nicardipine Iv For Drip (Cardene I.V. (O (12/25/19 13:56) Ns (Ivpb) (Sodium Chloride 0.9%) (12/25/19 13:56) Medications Given in ED Current Medications Medications Dose Ordered Sig/Tamara Route Start Time Stop Time Status Last Admin Dose Admin Hydralazine HCl 10 mg ONCE ONCE IV 12/25/19 12:45 12/25/19 12:46 DC 12/25/19 12:46 10 MG Progress Progress Note : Time: 14:01 Progress Note I discussed at length with Dr. Yoon the patient's condition. He agrees with admission to the ICU [facility] and continual Cardene drip for hypertension. Patient has a history of hemorrhagic stroke in the past blood pressures been greater than 220. Patient was given hydralazine in the emergency department with little improvement. Patient was started on a Cardene drip. Elevated BNP level and left pleural effusion Dr. Yoon states understanding. Initial ECG Impression Date: Dec 25, 2019 Initial ECG Impression Time: 12:23 Initial ECG Rate: 64 Initial ECG Rhythm: A Fib/Flutter Initial ECG Impression: Atrial Fibrillation Departure Impression Primary Impression: Malignant hypertension Additional Impressions: Pleural effusion History of CVA (cerebrovascular accident) Disposition: XFER SHT-TRM HOSP Condition: Stable Admissions Decision to Admit Reason: Admit from ER (General) Transfer Transfer Reason: Exceeds level of care Time Spoke to Accepting Phy: 14:[address] Yoon Transfer Time: 14:03 Transfer Facility: [facility] Method of Transfer: EMS Departure-Patient Inst. Referrals: SAMANTHA FERRELL APRN (PCP) Primary Care Physician [facility] [place] (Family) Primary Care Physician RENZO SIMMONS MD Dec 25, 2019 12:22
--- NOTE | 2019-12-25 12:30 | Diagnostic Imaging Report ---
Indication: Hypertension. Time of exam: 12:19 PM Correlation is made with prior chest from 08/20/2019. Heart is enlarged. There is infiltrate and pleural fluid in the left base obscuring left hemidiaphragm. Right lung is clear. Pulmonary vascularity is normal. There is no pneumothorax. Impression: Development of left basilar infiltrate and small left effusion. Dictated by: Dictated on workstation # [id number]
[2019-12-25 12:31] LABS: CLARITY,URINE SL CLOUDY; COLOR,URINE YELLOW
[2019-12-25 12:32] LABS: BACTERIA,URINE MODERATE /HPF; BILIRUBIN,URINE NEGATIVE (NEGATIVE); GLUCOSE, URINE (UA) NEGATIVE (NEGATIVE); KETONES,URINE NEGATIVE (NEGATIVE); LEUKOCYTE ESTERASE ,URINE 2+ (NEGATIVE); NITRITE,URINE NEGATIVE (NEGATIVE); PROTEIN,URINE 2+ (NEGATIVE)
[2019-12-25] MEDS ORDERED: hydrALAZINE (APESOLINE) 20 MG/ML VIAL IV ONE (12:45)
[2019-12-25 12:49] LABS: HEMATOCRIT 45 % (35-52); HEMOGLOBIN 14.6 G/DL (11.5-16.0); MEAN CORPUSCULAR HEMOGLOBIN 28 PG (25-34); MEAN CORPUSCULAR HGB CONC 32 G/DL (32-36); MEAN CORPUSCULAR VOLUME 87 FL (80-99); WHITE BLOOD COUNT 7.8 10^3/uL (4.3-11.0)
[2019-12-25 12:50] LABS: BASOPHILS # (AUTO) 0.1 10^3/uL (0.0-0.1); BASOPHILS % (AUTO) 1 % (0-10); EOSINOPHILS % (AUTO) 0 % (0-10); LYMPHOCYTES # (AUTO) 1.9 X 10^3 (1.0-4.0); LYMPHOCYTES % (AUTO) 25 % (12-44); MEAN PLATELET VOLUME 10.6 FL (7.4-10.4); MONOCYTES # (AUTO) 0.7 X 10^3 (0.0-1.0); MONOCYTES % (AUTO) 9 % (0-12); NEUTROPHILS # (AUTO) 5.1 X 10^3 (1.8-7.8); NEUTROPHILS % (AUTO) 66 % (42-75); PLATELET COUNT 192 10^3/uL (130-400)
[2019-12-25 13:01] LABS: PROTHROMBIN TIME PATIENT 22.9 SEC (12.2-14.7)
[2019-12-25 13:10] LABS: BUN/CREATININE RATIO 19; CARBON DIOXIDE 25 MMOL/L (21-32); CHLORIDE 106 MMOL/L (98-107); CREATININE SERUM 1.41 MG/DL (0.60-1.30); GFR ESTIMATED 37; SODIUM 141 MMOL/L (135-145)
[2019-12-25 13:11] LABS: ALANINE AMINOTRANSFERASE 37 U/L (0-55); ALBUMIN 4.1 GM/DL (3.2-4.5); ALKALINE PHOSPHATASE 72 U/L (40-136); CALCIUM 9.5 MG/DL (8.5-10.1); GLUCOSE 98 MG/DL (70-105); TOTAL PROTEIN 6.5 GM/DL (6.4-8.2)
--- NOTE | 2019-12-25 13:27 | Diagnostic Imaging Report ---
PROCEDURE: CT head without contrast. TECHNIQUE: Multiple contiguous axial images were obtained through the brain without the use of intravenous contrast. Auto Exposure Controls were utilized during the CT exam to meet ALARA standards for radiation dose reduction. INDICATION: Hypertension. COMPARISON: Study compared with a head CT performed on 12/31/2018. FINDINGS: Encephalomalacia in the left parietal lobe has developed at the site of a previous hemorrhagic infarct. Areas of right anterior frontal and posterior frontal parietal encephalomalacia, unchanged. Periventricular white matter disease, chronic. Mild ventriculomegaly is stable without daniel hydrocephalus. No hemorrhage or edema. No acute-appearing pathology. IMPRESSION: Evolutionary changes at the site of previous hemorrhagic infarct as an expected finding. Additional old ischemic insults, stable. Background atrophy and white matter disease noted. No hemorrhage, edema, or acute-appearing abnormality. Dictated by: Dictated on workstation # [id number]
[2019-12-25] MEDS ORDERED: dilTIAZem DRIP PRE-MIX 125 ML IV SCH (13:30)
[2019-12-25] MEDS ORDERED: NS (IVPB) 250 ML ONE (13:56)
[2019-12-25] MEDS ORDERED: niCARdipine IV FOR DRIP 50 MG KIT ONE (13:56)
[2019-12-25] MEDS ORDERED: niCARdipine IV 50 MG in NS (IVPB) 230 ML IV SCH (14:00)
--- NOTE | 2019-12-25 14:25 | NUR ---
Cathleen Bronson RN calling to check on an ICU bed as pt accepted. Enrollment Manager plans to get an order to transfer pt from ICU 7 to floor and then stat clean and return call to notify room prepared.
--- NOTE | 2019-12-25 14:35 | NUR ---
Pt's sister Nadege here in [facility] waiting room waiting on the patient. Permission granted to go speak with her from pt as sister's phone is not working as battery wennt . Update give.
--- NOTE | 2019-12-25 14:50 | NUR ---
Pt's sister Nadege going to leave and return to home @[place] and phone number provided to reach hospital to get updates in [place].
--- NOTE | 2019-12-25 15:13 | NUR ---
Call to ICU to ask if pt's room is available/ready for transfer. Notified room is ready. Request RN for the report.
--- NOTE | 2019-12-25 15:15 | NUR ---
Attempt report, left phone number for Savi FIGUEROA
--- NOTE | 2019-12-25 15:25 | NUR ---
Savi FIGUEROA returned call for report.
--- NOTE | 2019-12-25 15:33 | NUR ---
Mary FIGUEROA, Bag Bailer hears report with Savi FIGUEROA and now wants pt switched to ICU 6 which is occupied and needs to be cleaned after an order to transfer that pt out. Please hold pt in ER.
--- NOTE | 2019-12-25 18:15 | NUR ---
Attempted to call sister, Nadege, for last update that pt departed [id number] doing fine and ICU room number changed to 6 not 7. No answer at the number. Earlier when she was present at [facility] waiting on sister her cell phone was .
[2019-12-25] MEDS ORDERED: niCARdipine 50 MG/NS 250 ML IV DRIP IV SCH ×2 (18:45)
[2019-12-25] MEDS ORDERED: CATHETER FLUSH 10 ML SYR IV PRN (18:45)
[2019-12-25] MEDS ORDERED: FLU QUAD HIGH DOSE 240 MCG/0.7 ML 2020-21 (FLUZONE) IM ONE (20:15)
[2019-12-25] MEDS: CATHETER FLUSH 10 ML SYR IV SCH (21:07)
[2019-12-26 01:31] VITALS: BP 223/127
--- NOTE | 2019-12-26 01:41 | NUR ---
PRO RUSSO FOR SOA. INITIATE 02 IF SATS ARE LESS THAN 94%. RT TO REASSESS OR REEVALUATE IN 72 HOURS OR NEEDED Addendum: 12/26/19 at 0141 by GERARDO THORPE RT Amended: Links added.
[2019-12-26 03:05] LABS: BASOPHILS # (AUTO) 0.1 10^3/uL (0.0-0.1); BASOPHILS % (AUTO) 1 % (0-10); EOSINOPHILS % (AUTO) 0 % (0-10); HEMATOCRIT 47 % (35-52); HEMOGLOBIN 14.8 g/dL (11.5-16.0); LYMPHOCYTES # (AUTO) 1.5 10^3/uL (1.0-4.0); LYMPHOCYTES % (AUTO) 16 % (12-44); MEAN CORPUSCULAR HEMOGLOBIN 28 pg (25-34); MEAN CORPUSCULAR HGB CONC 32 g/dL (32-36); MEAN CORPUSCULAR VOLUME 87 fL (80-99); MEAN PLATELET VOLUME 10.6 fL (9.0-12.2); MONOCYTES # (AUTO) 0.8 10^3/uL (0.0-1.0); MONOCYTES % (AUTO) 9 % (0-12); NEUTROPHILS # (AUTO) 6.7 10^3/uL (1.8-7.8); NEUTROPHILS % (AUTO) 74 % (42-75); PLATELET COUNT 219 10^3/uL (130-400); WHITE BLOOD COUNT 9.1 10^3/uL (4.3-11.0)
[2019-12-26 03:19] LABS: ALBUMIN 3.9 GM/DL (3.2-4.5); POTASSIUM 3.6 MMOL/L (3.6-5.0)
[2019-12-26 03:20] LABS: CALCIUM 9.4 MG/DL (8.5-10.1)
[2019-12-26 03:21] LABS: TOTAL PROTEIN 6.5 GM/DL (6.4-8.2)
[2019-12-26 03:23] LABS: BILIRUBIN,TOTAL 1.2 MG/DL (0.1-1.0)
[2019-12-26 03:25] LABS: CREATININE SERUM 1.11 MG/DL (0.60-1.30); PHOSPHORUS 3.5 MG/DL (2.3-4.7)
[2019-12-26 03:27] LABS: MAGNESIUM 2.1 MG/DL (1.6-2.4)
--- NOTE | 2019-12-26 05:28 | Pulmonary Consultation ---
History of Present Illness History of Present Illness Date Seen by Provider: Dec 26, 2019 Time Seen by Provider: 05:24 Date of Admission Allergies and Home Medications Allergies Coded Allergies: No Known Drug Allergies (Unverified , 11/02/19) Home Medications Aspirin 325 Mg Tablet, 325 MG PO DAILY Prescribed by: TONY GALDAMEZ on 10/30/19 1057 Hydrocodone/Acetaminophen 1 Each Tablet, 1 TAB PO Q6H Prescribed by: TONY GALDAMEZ on 11/02/19 1409 Lisinopril 10 Mg Tablet, 10 MG PO DAILY Prescribed by: AMY NIELSEN on 06/04/19 1306 Metoprolol Succinate 100 Mg Tab.er.24h, 100 MG PO DAILY Prescribed by: AMY NIELSEN on 06/04/19 1306 Past Xuzmxye-Dycfpc-Elforh Hx Patient Social History Alcohol Use: Denies Use Recreational Drug Use: No Smoking Status: Never a Smoker 2nd Hand Smoke Exposure: No Recent Foreign Travel: No Contact w/Someone Who Travel: No Recent Infectious Disease Expo: No Recent Hopitalizations: No Physical Abuse: No Sexual Abuse: No Mistreated: No Fear: No Immunizations Up To Date Tetanus Booster (TDap): Unknown PED Vaccines UTD: No Date of Influenza Vaccine: Nov 18, 2018 Seasonal Allergies Seasonal Allergies: No Past Medical History Surgeries: Yes Hysterectomy, Oophorectomy, Tonsillectomy Respiratory: No Currently Using CPAP: No Currently Using BIPAP: No Cardiac: Yes Atrial Fibrillation, Heart Attack, Hypertension Neurological: Yes (CVA 2018) Stroke Genitourinary: No Gastrointestinal: No Musculoskeletal: No Endocrine: No HEENT: No Cancer: No Psychosocial: No Integumentary: No Blood Disorders: No Adverse Reaction/Blood Tranf: No Family Medical History Cardiovascular disease 19 FATHER, , Onset:60 years & older 19 MOTHER, , Onset:60 years & older FH: thyroid cancer G8 SISTER, Onset:50's - 60 Heart Disease, Cancer Review of Systems Time Seen by Provider: 05:26 Sepsis Event Evaluation Height, Weight, BMI Height: '" Weight: lbs. oz. kg; 36.00 BMI Method: Exam Exam Vital Signs Date Time Temp Pulse Resp B/P (MAP) Pulse Ox O2 Delivery O2 Flow Rate FiO2 12/26/19 04:11 37.2 12/26/19 04:00 94 Room Air 12/26/19 02:00 71 21 130/85 95 Room Air 12/26/19 01:31 36.2 60 100 21 12/26/19 01:00 51 12/26/19 01:00 62 21 126/80 95 Room Air 12/26/19 00:00 97 Room Air 12/26/19 00:00 75 21 122/75 95 Room Air 12/25/19 23:00 57 22 116/74 95 Room Air 12/25/19 22:00 58 23 118/75 94 Room Air 12/25/19 21:00 68 21 131/83 96 Room Air 12/25/19 20:30 65 20 139/78 96 Room Air 12/25/19 20:00 71 15 152/98 95 Room Air 12/25/19 20:00 97 Room Air 12/25/19 20:00 36.6 12/25/19 19:45 71 17 150/98 97 Room Air 12/25/19 19:30 78 20 123/106 96 Room Air 12/25/19 19:15 Room Air 12/25/19 19:15 65 14 168/93 96 Room Air 12/25/19 19:00 72 12/25/19 19:00 73 21 163/109 96 Room Air 12/25/19 17:25 36.4 60 20 151/87 97 Room Air 12/25/19 12:00 36.2 86 18 223/127 (159) 100 Room Air 229/136 (167) I & O 12/26/19 07:00 Intake Total 100 ml Output Total 1150 ml Balance -1050 ml Height & Weight Height: '" Weight: lbs. oz. kg; 36.00 BMI Method: General Appearance: No Apparent Distress, WD/WN Respiratory: Chest Non Tender, Lungs Clear, Normal Breath Sounds, No Accessory Muscle Use, No Respiratory Distress Cardiovascular: Regular Rate, Rhythm, No Edema, No Gallop, No JVD, No Murmur, Normal Peripheral Pulses Capillary Refill: Less Than 3 Seconds Extremity: Normal Capillary Refill, Normal Inspection, Normal Range of Motion, Non Tender, No Calf Tenderness, No Pedal Edema Neurologic/Psychiatric: Alert, Oriented x3, No Motor/Sensory Deficits, Normal Mood/Affect Skin: Normal Color, Warm/Dry Results Lab Laboratory Tests 12/25/19 12:35 12/26/19 02:43 Assessment/Plan Assessment/Plan HTN urgency -BP improved -She is off Cardene gtt -Will start lisinopril and Lopressor PO -PRN Hydralazine AFIB- chronic -Restart home Xeralto -D/C Heparin UTI -Start Rocephin ARF - Improved Since pt is not requiring Cardene gtt now will transfer her to 4th floor. ROSHNI THORPE DO Dec 26, 2019 05:28
[2019-12-26] MEDS ORDERED: RT-ALBUTEROL/IPRATROPIUM 3 ML (DUONEB) VIAL INH PRN (05:30)
[2019-12-26] MEDS ORDERED: lisINopril 20 MG (PRINIVIL) TABLET ONE (05:53)
[2019-12-26] MEDS ORDERED: meTOprolol TARTRATE 50 MG (LOPRESSOR) TAB ONE (05:54)
[2019-12-26] MEDS: cefTRIAXone FOR IV USE 1,000 MG in WATER (STERILE) FOR INJECTION 10 ML IV SCH (05:58)
[2019-12-26] MEDS: CATHETER FLUSH 10 ML SYR IV SCH ×3 (05:58→21:24)
[2019-12-26] MEDS: lisINopril 20 MG (PRINIVIL) TABLET PO SCH (05:58)
[2019-12-26] MEDS ORDERED: MAGNESIUM 1 GM/100 ML IVPB 100 ML IV SCH (06:00)
[2019-12-26] MEDS ORDERED: POTASSIUM CL 10MEQ/50ML IVPB 50 ML IV SCH (06:00)
[2019-12-26] MEDS ORDERED: KCL 20 MEQ TAB (K-DUR) PO SCH (06:00)
[2019-12-26] MEDS: amLODIPine 5 MG (NORVASC) TAB PO SCH (06:57)
[2019-12-26] MEDS ORDERED: KCL 20 MEQ TAB (K-DUR) PO ONE (07:00)
[2019-12-26] MEDS ORDERED: FUROSEMIDE 20 MG (LASIX) TAB PO ONE (08:30)
[2019-12-26] MEDS: meTOprolol TARTRATE 50 MG (LOPRESSOR) TAB PO SCH ×2 (08:48→20:12)
[2019-12-26] MEDS ORDERED: meTOprolol TARTRATE 50 MG (LOPRESSOR) TAB PO SCH (09:00)
--- NOTE | 2019-12-26 09:04 | History & Physicial ---
HPI History of Present Illness: HPI/Chief Complaint This patient is a 64-year-old female presents to the emergency department with complaint of uncontrolled hypertension. Patient states for the past 2 days her blood pressures been difficult to control. Patient does take 3 different medications including 20 mg of lisinopril 50 mg of metoprolol and 10 mg of amlodipine for blood pressure control. Patient still having blood pressures around 200/120. Patient denies headache. Patient does have a history of stroke. Patient also takes several toe. Patient has long history of A. fib. We'll do medical evaluation treatment is needed. Timing/Duration: 1-2 days. A shirt denied orthopnea PND or dyspnea on exertion. She also denied headache or any neurologic change. Previous reported hypertensive related CVA 1 year ago because weakness on one side that lasted less than 24 hours she had central vision loss that is improved but not quite back to normal even yet. She also had some temporary difficulty with speech. This is completely recovered. She has noticed some increased edema over the past several days with likely increase in salt in her diet. She denies alcohol consumption. She reports compliance with her medication had not run out of anything. She monitors her blood pressure frequently and yesterday was first day that she had noted a significant increase. Date Seen 12/26/19 Time Seen by a Provider: 08:30 Attending Physician Jeannine Navas MD PCP Minerva Cho Aprn Referring Physician Date of Admission Dec 25, 2019 at 18:15 Home Medications & Allergies Home Medications Reviewed patient Home Medication Reconciliation performed by pharmacy medication reconciliations communications technician and/or nursing. Patients Allergies have been reviewed. Allergies Allergies Coded Allergies No Known Drug Allergies (Unverified11/02/19) Past Fndjiht-Fbiugd-Ulumhc Hx Patient Social History Alcohol Use: Denies Use Recreational Drug Use: No Smoking Status: Never a Smoker 2nd Hand Smoke Exposure: No Recent Foreign Travel: No Contact w/other who traveled: No Recent Hopitalizations: No Recent Infectious Disease Expo: No Immunizations Up To Date Tetanus Booster (TDap): Unknown Pediatric: No Date of Influenza Vaccine: Nov 18, 2018 Seasonal Allergies Seasonal Allergies: No Surgeries Yes Hysterectomy, Oophorectomy, Tonsillectomy Respiratory No Currently Using CPAP: No Currently Using BIPAP: No Cardiovascular Yes Atrial Fibrillation, Heart Attack, Hypertension Neurological Yes (CVA 2018) Stroke Genitourinary No Gastrointestinal No Musculoskeletal No Endocrine History of Endocrine Disorders: No HEENT History of HEENT Disorders: No Cancer No Psychosocial History of Psychiatric Problem: No Integumentary History of Skin or Integumenta: No Blood Transfusions History of Blood Disorders: No Adverse Reaction to a Blood Tr: No Family Medical History Significant Family History: Heart Disease, Cancer Family Hx: Cardiovascular disease 19 FATHER, , Onset:60 years & older 19 MOTHER, , Onset:60 years & older FH: thyroid cancer G8 SISTER, Onset:50's - 60 Review of Systems Constitutional: see HPI Physical Exam Physical Exam Vital Signs Vital Signs - First Documented 12/25/19 12/26/19 12:00 01:31 Temp 36.2 Pulse 86 Resp 18 B/P (MAP) 223/127 (159) 229/136 (167) Pulse Ox 100 O2 Delivery Room Air FiO2 21 Capillary Refill : Less Than 3 SecondsLess Than 3 Seconds Height, Weight, BMI Height: '" Weight: lbs. oz. kg; 36.00 BMI Method: General Appearance: No Apparent Distress, WD/WN Respiratory: Chest Non Tender, Lungs Clear, Normal Breath Sounds, No Accessory Muscle Use, No Respiratory Distress Cardiovascular: No Edema, No Gallop, No JVD, No Murmur, Normal Peripheral Pulses, Gallop/S4, Irregularly Irregular Gastrointestinal: Normal Bowel Sounds, No Organomegaly, No Pulsatile Mass, Non Tender Extremity: Normal Capillary Refill, Normal Inspection, Normal Range of Motion, Non Tender, No Calf Tenderness, No Pedal Edema Neurologic/Psychiatric: Alert, Oriented x3, No Motor/Sensory Deficits, Normal Mood/Affect Skin: Normal Color, Warm/Dry Assessment/Plan Admission Diagnosis 1. Hypertensive urgency likely aggravated by lack of diuretic therapy will give a dose of Lasix and continue her low-dose beta zurdo therapy BARRY inhibitor therapy and calcium channel zurdo therapy. Overnight as her blood pressures have improved her Cardene drip has been held likely transfer to the floor later today. 2. 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 Discussed in reports of adhering to a low salt diet and medication compliance. 3. Atrial fibrillation without rapid ventricular response and significantly elevated BNP without overt evidence for heart failure echocardiogram has been ordered expect significant diastolic dysfunction. Admission Status: Inpatient Order (span 2 midnights) Reason for Inpatient Admission: See admission diagnosis Clinical Quality Measures DVT/VTE Risk/Contraindication: Risk Factor Score Per Nursin RFS Level Per Nursing on Admit: 4+=Very High JEANNINE NAVAS MD Dec 26, 2019 09:04
--- NOTE | 2019-12-26 09:13 | Diagnostic Imaging Report ---
INDICATION: Hypertension, shortness of air. Compared with study 12/25/2019. FINDINGS: The heart is enlarged, unchanged from prior. There is a small left effusion and nonspecific left basilar pulmonary opacity, infiltrate versus atelectasis unchanged. The right lung clear. IMPRESSION: No real change in left basilar pleural-parenchymal opacity and prominence of the cardiac silhouette. Dictated by: Dictated on workstation # [id number]
[2019-12-26] MEDS: hydrALAZINE (APESOLINE) 20 MG/ML VIAL IV PRN (10:51)
--- NOTE | 2019-12-26 10:54 | NUR ---
TRANSFER FROM ICU 6, TO ROOM 408 @ THIS TIME. REPORT FROM CAROLINA BAEZ. Addendum: 12/26/19 at 1056 by RINA GERARDO RN BP 180/98 , PRN HYDRALAZINE ADMINISTERED. PATIENT IS ASYMPTOMATIC AND DENIES C/O. CONT TO MONITOR.
[2019-12-26 10:56] VITALS: BP 180/98
[2019-12-26 11:11] VITALS: BP 180/98
[2019-12-26 11:18] VITALS: BP 127/78
[2019-12-26 16:47] VITALS: BP 147/87
[2019-12-26] MEDS ORDERED: RIVAROXABAN 20 MG TABLET (XARELTO) PO SCH (17:00)
[2019-12-27 03:39] VITALS: BP 175/96
[2019-12-27] MEDS: hydrALAZINE (APESOLINE) 20 MG/ML VIAL IV PRN (03:58)
[2019-12-27] MEDS ORDERED: WATER (STERILE) FOR INJECTION 10 ML ONE (05:29)
[2019-12-27] MEDS ORDERED: cefTRIAXone 1,000 MG IV (ROCEPHIN) VIAL ONE (05:29)
[2019-12-27] MEDS: cefTRIAXone FOR IV USE 1,000 MG in WATER (STERILE) FOR INJECTION 10 ML IV SCH (05:34)
[2019-12-27] MEDS: CATHETER FLUSH 10 ML SYR IV SCH (05:35)
[2019-12-27 05:43] LABS: POTASSIUM 3.9 MMOL/L (3.6-5.0)
[2019-12-27 05:44] LABS: CALCIUM 9.2 MG/DL (8.5-10.1)
[2019-12-27 05:48] LABS: CREATININE SERUM 1.28 MG/DL (0.60-1.30); PHOSPHORUS 3.4 MG/DL (2.3-4.7)
[2019-12-27 06:30] LABS: BASOPHILS # (AUTO) 0.1 10^3/uL (0.0-0.1); BASOPHILS % (AUTO) 1 % (0-10); EOSINOPHILS % (AUTO) 0 % (0-10); HEMATOCRIT 49 % (35-52); HEMOGLOBIN 15.5 g/dL (11.5-16.0); LYMPHOCYTES # (AUTO) 2.2 10^3/uL (1.0-4.0); LYMPHOCYTES % (AUTO) 26 % (12-44); MEAN CORPUSCULAR HEMOGLOBIN 28 pg (25-34); MEAN CORPUSCULAR HGB CONC 32 g/dL (32-36); MEAN CORPUSCULAR VOLUME 88 fL (80-99); MEAN PLATELET VOLUME 10.5 fL (9.0-12.2); MONOCYTES # (AUTO) 0.9 10^3/uL (0.0-1.0); MONOCYTES % (AUTO) 10 % (0-12); NEUTROPHILS # (AUTO) 5.4 10^3/uL (1.8-7.8); NEUTROPHILS % (AUTO) 63 % (42-75); PLATELET COUNT 209 10^3/uL (130-400); WHITE BLOOD COUNT 8.5 10^3/uL (4.3-11.0)
[2019-12-27] MEDS: lisINopril 20 MG (PRINIVIL) TABLET PO SCH (07:50)
[2019-12-27] MEDS: amLODIPine 5 MG (NORVASC) TAB PO SCH (07:52)
[2019-12-27] MEDS: meTOprolol TARTRATE 50 MG (LOPRESSOR) TAB PO SCH (07:52)
[2019-12-27 08:30] VITALS: BP 156/90
--- NOTE | 2019-12-27 09:29 | NUR ---
PT IS IN NO RESPIRATORY DISTRESS. PT HAS NO NEEDS AT THIS TIME. Addendum: 12/27/19 at 0929 by MEGAN PARK RT Amended: Links added.
[2019-12-27] MEDS ORDERED: LISI1TAB26 PO (09:59)
[2019-12-27] MEDS ORDERED: AMLO-251 PO (10:01)
--- NOTE | 2019-12-27 10:09 | Discharge Summary ---
Diagnosis/Chief Complaint Date of Admission Dec 25, 2019 at 18:15 Date of Discharge Discharge Date: Dec 27, 2019 Admission Diagnosis 1. Hypertensive urgency likely aggravated by lack of diuretic therapy will give a dose of Lasix and continue her low-dose beta zurdo therapy BARRY inhibitor therapy and calcium channel zurdo therapy. Overnight as her blood pressures have improved her Cardene drip has been held likely transfer to the floor later today. 2. 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 Discussed in reports of adhering to a low salt diet and medication compliance. 3. Atrial fibrillation without rapid ventricular response and significantly elevated BNP without overt evidence for heart failure echocardiogram has been ordered expect significant diastolic dysfunction. Primary Care Center/[facility] Discharge Summary Discharge Physical Exam Allergies: Coded Allergies: No Known Drug Allergies (Unverified , 11/02/19) Vitals & I&Os Vital Signs Date Time Temp Pulse Resp B/P (MAP) Pulse Ox O2 Delivery O2 Flow Rate FiO2 12/27/19 07:48 Room Air 12/27/19 03:39 36.3 53 20 175/96 (122) 95 12/26/19 01:31 21 General Appearance: No Apparent Distress Respiratory: Chest Non Tender, Lungs Clear, Normal Breath Sounds, No Accessory Muscle Use, No Respiratory Distress Cardiovascular: Regular Rate, Rhythm, No Edema, No Gallop, No JVD, No Murmur, Normal Peripheral Pulses Extremity: Normal Inspection, Normal Range of Motion, Non Tender, No Calf Tenderness, No Pedal Edema Hospital Course Was the Problem List Reviewed?: Yes This patient is a 64-year-old female presents to the emergency department with complaint of uncontrolled hypertension. Patient states for the past 2 days her blood pressures been difficult to control. Patient does take 3 different med ications including 20 mg of lisinopril 50 mg of metoprolol and 10 mg of amlodipine for blood pressure control. Patient still having blood pressures around 200/120. Patient denies headache. Patient does have a history of stroke. Patient also takes several toe. Patient has long history of A. fib. We'll do medical evaluation treatment is needed. Timing/Duration: 1-2 days. A shirt denied orthopnea PND or dyspnea on exertion. She also denied headache or any neurologic change. Previous reported hypertensive related CVA 1 year ago because weakness on one side that lasted less than 24 hours she had central vision loss that is improved but not quite back to normal even yet. She also had some temporary difficulty with speech. This is completely recovered. She has noticed some increased edema over the past several days with likely increase in salt in her diet. She denies alcohol consumption. She reports compliance with her medication had not run out of anything. She monitors her blood press ure frequently and yesterday was first day that she had noted a significant increase.Patient was initially admitted to the intensive care unit on a Cardene drip with good blood pressure control. She received a couple of doses of Lasix and amlodipine 10 mg daily the following morning was resumed and Cardene discontinued with reasonable blood pressure control and no systolics greater than 180. As she had no neurologic symptoms was independent with ambulation with no chest discomfort or dyspnea on exertion being reported. Due to significant LVH with repolarization change on EKG echocardiogram was obtained which revealed moderate to severe concentric left ventricular hypertrophy with hyperdynamic LV function estimated ejection fraction 70 to 75%. No evidence for pulmonary hypertension was noted with an estimated PA pressure of 20 no significant valvular abnormalities that were noted with mild to moderate left atrial chamber dilatation and evidence for underlying significant diastolic dysfunction. Left atrium measured 4.5cm. There was no evidence for subaortic stenosis. Patient is being switched from lisinopril 10 mg daily to lisinopril HCT 20/25 and recommend a basic metabolic panel on return to her primary care provider in 1 to 2 weeks. She will continue her other home medications including amlodipine 10 mg daily and metoprolol and Xarelto for her underlying chronic atrial fibrillation. This remained rate controlled during her hospital stay. Labs (last 24 hrs) Laboratory Tests 12/27/19 05:09: Sodium Level 141, Potassium Level 3.9, Chloride Level 108H, Carbon Dioxide Level 20L, Anion Gap 13, Blood Urea Nitrogen 27H, Creatinine 1.28, Estimat Glomerular Filtration Rate 42, BUN/Creatinine Ratio 21, Glucose Level 93, Calcium Level 9.2, Phosphorus Level 3.4, Magnesium Level 2.0 12/27/19 06:14: White Blood Count 8.5, Red Blood Count 5.60H, Hemoglobin 15.5, Hematocrit 49, Mean Corpuscular Volume 88, Mean Corpuscular Hemoglobin 28, Mean Corpuscular Hemoglobin Concent 32, Red Cell Distribution Width 13.8, Platelet Count 209, Mean Platelet Volume 10.5, Immature Granulocyte % (Auto) 0, Neutrophils (%) (Auto) 63, Lymphocytes (%) (Auto) 26, Monocytes (%) (Auto) 10, Eosinophils (%) (Auto) 0, Basophils (%) (Auto) 1, Neutrophils # (Auto) 5.4, Lymphocytes # (Auto) 2.2, Monocytes # (Auto) 0.9, Eosinophils # (Auto) 0.0, Basophils # (Auto) 0.1, Immature Granulocyte # (Auto) 0.0 Microbiology 12/25/19 MRSA Screen - Final, Complete MRSA not isolated 12/25/19 Urine Culture - Final, Complete >=3 Gram Positive Isolates Patient resulted labs reviewed. Pending Labs Laboratory Tests 12/27/19 05:09: Sodium Level 141, Potassium Level 3.9, Chloride Level 108, Carbon Dioxide Level 20, Anion Gap 13, Blood Urea Nitrogen 27, Creatinine 1.28, Estimat Glomerular Filtration Rate 42, BUN/Creatinine Ratio 21, Glucose Level 93, Calcium Level 9.2, Phosphorus Level 3.4, Magnesium Level 2.0 12/27/19 06:14: White Blood Count 8.5, Red Blood Count 5.60, Hemoglobin 15.5, Hematocrit 49, Mean Corpuscular Volume 88, Mean Corpuscular Hemoglobin 28, Mean Corpuscular Hemoglobin Concent 32, Red Cell Distribution Width 13.8, Platelet Count 209, Mean Platelet Volume 10.5, Immature Granulocyte % (Auto) 0, Neutrophils (%) (Auto) 63, Lymphocytes (%) (Auto) 26, Monocytes (%) (Auto) 10, Eosinophils (%) (Auto) 0, Basophils (%) (Auto) 1, Neutrophils # (Auto) 5.4, Lymphocytes # (Auto) 2.2, Monocytes # (Auto) 0.9, Eosinophils # (Auto) 0.0, Basophils # (Auto) 0.1, Immature Granulocyte # (Auto) 0.0 Discussion & Recommendations Discharge Planning: <30 minutes discharge planning Discharge Home Medications: Active Scripts Active Amlodipine Besylate 10 Mg Tablet 10 Mg PO DAILY 30 Days Lisinopril-Hctz 20-25 mg Tab (Lisinopril/Hydrochlorothiazide) 1 Each Tablet 1 Each PO DAILY 30 Days Hydrocodone/Acetaminophen 5 MG/325 MG TAB (Hydrocodone/Acetaminophen) 1 Each Tablet 1 Tab PO Q6H MDD 10 TABS 7 Days Aspirin 325 Mg Tablet 325 Mg PO DAILY 3 Days Metoprolol Succinate 100 Mg Tab.er.24h 100 Mg PO DAILY 30 Days Lisinopril 10 Mg Tablet 10 Mg PO DAILY 30 Days Reported Xarelto (Rivaroxaban) 20 Mg Tablet 20 Mg PO Instructions to patient/family Please see electronic discharge instructions given to patient. Clinical Quality Measures DVT/VTE Risk/Contraindication: Risk Factor Score Per Nursin RFS Level Per Nursing on Admit: 4+=Very High Copy Copies To 1: [facility]/JEANNINE WHITT MD Dec 27, 2019 10:09
--- NOTE | 2019-12-27 11:24 | NUR ---
MEDICATIONS CALLED TO [facility] IN [place] [phone]
[2019-12-27 11:25] VITALS: BP 176/78
[2019-12-27 11:30] VITALS: BP 171/91
--- NOTE | 2019-12-27 11:38 | NUR ---
DR NAVAS NOTIFIED OF PATIENT'S CURRENT BP OF 171/91, HR 72. REQUEST FOR HOME MED PRN HYDRALAZINE AND PO MEDICATION. HER IV HAS BEEN REMOVED IN PREPERATION FOR D/C.
--- NOTE | 2019-12-27 11:57 | NUR ---
DR NAVAS RESPONDED -ORDERS FOR HYDRALAZINE FOR SBP >180. PATIENT'S BP 169 SYSTOLICALLY AT THIS TIME. PATINT EDUCATED ON NEW HOME MEDICATIONS. PATIENT VERBALIZES DILIGENCE AND COMPLIANCE WITH BP MONIITORING AT HOME AND UNDERSTANDING OF MEDICATIONS. CONT TO MONITOR.
[2019-12-27] MEDS ORDERED: HYDR-3923 PO (12:05)
--- NOTE | 2019-12-27 14:32 | NUR ---
SHAUN BALTAZAR demonstrates understanding of discharge instructions and accurately returns instructions upon questioning. Copy of Post-Discharge Instructions and Medication Discharge Instructions given to PATIENT. SHAUN BALTAZAR is not able to manage continuing needs after discharge. Patients belongings returned to PATIENT. Skin dry and intact; no breakdown noted. Patient discharged from 408-1 on at . SHAUN BALTAZAR left floor via WC, accompanied by STAFF.
--- NOTE | 2019-12-29 09:48 | History & Physical-Hospitalist ---
History of Present Illness HPI/Chief Complaint This patient is a 64-year-old female presents to the emergency department with complaint of uncontrolled hypertension. Patient states for the past 2 days her blood pressures been difficult to control. Patient does take 3 different medications including 20 mg of lisinopril 50 mg of metoprolol and 10 mg of amlodipine for blood pressure control. Patient still having blood pressures around 200/120. Patient denies headache. Patient does have a history of stroke. Patient also takes several toe. Patient has long history of A. fib. We'll do medical evaluation treatment is needed. Timing/Duration: 1-2 days. A shirt denied orthopnea PND or dyspnea on exertion. She also denied headache or any neurologic change. Previous reported hypertensive related CVA 1 year ago because weakness on one side that lasted less than 24 hours she had central vision loss that is improved but not quite back to normal even yet. She also garzon d some temporary difficulty with speech. This is completely recovered. She has noticed some increased edema over the past several days with likely increase in salt in her diet. She denies alcohol consumption. She reports compliance with her medication had not run out of anything. She monitors her blood pressure frequently and yesterday was first day that she had noted a significant increase. Date Seen 12/26/19 Time Seen by a Provider: 09:00 Attending Physician Jeannine Yoon MD PCP Minerva Cho Aprn Referring Physician Date of Admission Dec 25, 2019 at 18:15 Home Medications & Allergies Home Medications Reviewed patient Home Medication Reconciliation performed by pharmacy medication reconciliations air moving technician and/or nursing. Patients Allergies have been reviewed. Allergies Allergies Coded Allergies No Known Drug Allergies (Unverified11/02/19) Past Eixcmaf-Xtnaix-Pmezcq Hx Past Med/Social Hx: Reviewed and Corrections made Patient Social History Alcohol Use: Denies Use Recreational Drug Use: No Smoking Status: Never a Smoker 2nd Hand Smoke Exposure: No Recent Foreign Travel: No Contact w/other who traveled: No Recent Hopitalizations: No Recent Infectious Disease Expo: No Immunizations Up To Date Tetanus Booster (TDap): Unknown Pediatric: No Date of Influenza Vaccine: Nov 18, 2018 Seasonal Allergies Seasonal Allergies: No Past Medical History Surgeries: Hysterectomy, Oophorectomy, Tonsillectomy Currently Using CPAP: No Currently Using BIPAP: No Cardiac: Atrial Fibrillation, Heart Attack, Hypertension Neurological: Stroke History of Blood Disorders: No Adverse Reaction to Blood Donovan: No Family History Cardiovascular disease 19 FATHER, , Onset:60 years & older 19 MOTHER, , Onset:60 years & older FH: thyroid cancer G8 SISTER, Onset:50's - 60 Heart Disease, Cancer Review of Systems Constitutional: see HPI Physical Exam Physical Exam Vital Signs Vital Signs - First Documented 12/25/19 12/26/19 12:00 01:31 Temp 36.2 Pulse 86 Resp 18 B/P (MAP) 223/127 (159) 229/136 (167) Pulse Ox 100 O2 Delivery Room Air FiO2 21 Capillary Refill : Less Than 3 SecondsLess Than 3 Seconds Height, Weight, BMI Height: '" Weight: lbs. oz. kg; 36.00 BMI Method: General Appearance: No Apparent Distress, Anxious Neck: Normal Inspection, Non Tender, Supple Respiratory: Chest Non Tender, Lungs Clear, Normal Breath Sounds, No Accessory Muscle Use, No Respiratory Distress Cardiovascular: Regular Rate, Rhythm, No Edema, No JVD, No Murmur, Normal Peripheral Pulses, Gallop/S4 Gastrointestinal: Normal Bowel Sounds, No Organomegaly, No Pulsatile Mass, Non Tender, Soft Neurologic/Psychiatric: Alert, Oriented x3, No Motor/Sensory Deficits Skin: Normal Color, Warm/Dry Results Results/Procedures Labs Patient resulted labs reviewed. Assessment/Plan Admission Diagnosis 1. Hypertensive urgency likely aggravated by lack of diuretic therapy will give a dose of Lasix and continue her low-dose beta zurdo therapy BARRY inhibitor therapy and calcium channel zurdo therapy. Overnight as her blood pressures have improved her Cardene drip has been held likely transfer to the floor later today. 2. 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 Discussed in reports of adhering to a low salt diet and medication compliance. 3. Atrial fibrillation without rapid ventricular response and significantly elevated BNP without overt evidence for heart failure echocardiogram has been ordered expect significant diastolic dysfunction. Admission Status: Inpatient Order (span 2 midnights) Reason for Inpatient Admission: See admit diagnosis Clinical Quality Measures DVT/VTE Risk/Contraindication: Risk Factor Score Per Nursin RFS Level Per Nursing on Admit: 4+=Very High JEANNINE YOON MD Dec 29, 2019 09:48
== END 2019-12-27 14:34 | disposition home or self-care (01) | DRG 305 ==
LOC: EDUNIT# 11:53 → ER FS 11:55 → ICU 18:15 → 4TH 12-26 10:42
PROVIDERS: ADMIT Internal Medicine; ATTEND Internal Medicine
DX: I16.0 Hypertensive urgency (principal); N39.0 Urinary tract infection, site not specified; N17.9 Acute kidney failure, unspecified; I48.20 Chronic atrial fibrillation, unspecified; I10 Essential (primary) hypertension; Z86.73 Personal history of transient ischemic attack (TIA), and cerebral infarction without residual deficits; I25.2 Old myocardial infarction
CPT/HCPCS: 36415; 70450; 71045; 80048; 80053; 81000; 83735; 83880; 84100; 84484; 85025; 85610; 87081; 87088; 90662; 93005; 93306

== ENCOUNTER → 2021-05-31 | Outpatient (CLI) | payer MEDICARE, MEDICAID ==
[~2021-05-31] MED LIST changes: +HYDR-3923 PO; -LISI10TA2 PO; +LISI10TA25 PO; +LISI1TAB48 PO
== END ==
LOC: CARD 13:47
PROVIDERS: ATTEND Nurse Practitioner Family
DX: I34.0 Nonrheumatic mitral (valve) insufficiency (principal); I51.7 Cardiomegaly
CPT/HCPCS: 93306